=== PATIENT | female | born 1965 | race Caucasian/White ===

== ENCOUNTER 2018-10-30 07:31 | Outpatient (CLI) | payer OTHER, SELFPAY ==
[2018-10-30 08:33] LABS: Hemoglobin A1C 8.1 % (4.5-6.2)
[2018-10-30 08:34] LABS: ALT 28 U/L (12-78); AST 10 U/L (15-37); Alkaline Phosphatase 99 U/L (46-116); Anion Gap 11.3 mmol/L (3-11); BUN 14 mg/dL (7-18); Bilirubin, Total 0.4 mg/dL (0.2-1.0); CO2 25.7 mmol/L (21.0-32.0); CREATININE 0.85 mg/dL (0.55-1.02); Calcium 9.7 mg/dL (8.5-10.1); Chloride 99 mmol/L (98-107); Cholesterol 229 mg/dL (50-200); Glucose 199 mg/dL (70-100); HDL Cholesterol 60 mg/dL (40-60); LDL CHOLESTEROL 138 mg/dL (<100); Potassium 4.1 mmol/L (3.5-5.1); Sodium 136 mmol/L (136-145); Total Protein 7.2 g/dL (6.4-8.2); Triglyceride 255 mg/dL (30-150)
[2018-10-30 08:38] LABS: COMMENT (LAB VIEW ONLY) 10.01 mg/dL; Microalb ug/mg Crea 58.9 ug/mg Cr
== END 2018-10-30 07:51 ==
PROVIDERS: PCP Family Medicine; Visit Provider Family Medicine
DX: Z00.00 Encounter for general adult medical examination without abnormal findings (principal); E11.9 Type 2 diabetes mellitus without complications; F90.9 Attention-deficit hyperactivity disorder, unspecified type
CPT/HCPCS: 36415; 80053; 80061; 83721; 82043; 82570; 83036

== ENCOUNTER 2019-04-10 12:40 | Outpatient (CLI) | payer OTHER, SELFPAY ==
[2019-04-10 13:47] LABS: Hemoglobin A1C 9.2 % (4.5-6.2)
== END 2019-04-10 13:00 ==
PROVIDERS: PCP Family Medicine; Visit Provider Family Medicine
DX: E11.9 Type 2 diabetes mellitus without complications (principal); Z00.00 Encounter for general adult medical examination without abnormal findings
CPT/HCPCS: 36415; 83036

== ENCOUNTER 2019-04-12 23:44 | Emergency (ER) | payer OTHER, SELFPAY ==
[2019-04-12 23:47] VITALS: BP 148/83; PULSE 84; RESP 22; TEMP 36.1; O2SAT 98
--- NOTE | 2019-04-12 23:58 | W.ED.GENAD ---
Discharge Plan Disposition Patient Disposition: HOME Condition: Improving Discharge Details Chief Complaint: FlankPain Clinical Impression: Renal colic on left side Primary Care Provider: Keisha Magaña ED Provider: Richmond Trent Home Meds and New Rx's Prescriptions: Continued atorvastatin 10 mg tablet 10 mg PO QPM Qty: 90 RF: 5 methylphenidate HCl 10 mg tablet 10 mg PO TID MDD 3 Qty: 90 RF: 0 prochlorperazine maleate 10 mg tablet 10 mg PO TID PRN (Reason: nausea and vomiting) Qty: 50 RF: 0 fluoxetine [Prozac] 40 mg capsule 40 mg PO DAILY Qty: 90 RF: 11 estradiol 0.5 mg tablet 0.5 mg VG DAILY Qty: 90 RF: 12 glipizide 10 mg tablet extended release 24hr 10 mg PO BID Qty: 180 RF: 12 FreeStyle Test 1 EACH strip 1 strip Miscellaneous DAILY RF: 0 lancets [OneTouch Delica Lancets] 1 EACH misc 1 ea Sub-Q DAILY RF: 0 ibuprofen 800 MG tablet 800 mg PO PRN RF: 0 folic acid 0.4 MG tablet 1.2 mg PO DAILY RF: 0 Denavir 1 % cream 1 applic Topical QID PRN (Reason: herpes) Qty: 5 RF: 4 clonazepam 0.5 mg tablet 0.5 mg PO DIRECTED Qty: 200 RF: 1 diphenhydramine HCl 50 MG capsule 1 tab PO .PRN PRNRF: 0 acetaminophen [Mapap Extra Strength] 500 MG tablet 500 mg PO PRN PRNRF: 0 Discharge Instructions Instructions: Renal Colic (ED) Additional Instructions: Home to rest. Small, frequent sips of fluids to maintain hydration. Continue the previously prescribed ciprofloxacin. Use Tylenol and/or ibuprofen as needed for discomfort. Return if you develop a fever, worsening pain, or any other acute concerns Stand Alone Forms: Work Release Medical Decision Making 53-year-old female who is a history of kidney stones presents with hours of left-sided flank pain. She will note that she is been taking ciprofloxacin for a self diagnosed urinary tract infection. She has a temperature 36.1, pulse 84, blood pressure 148/83. She is in some distress and tender in the left abdomen and flank on exam. IV placed, patient given fluids, antiemetic, parenteral analgesia and referred for laboratory testing and CT images. Patient does have a right proximal ureteral stone measuring 4 mm. No significant hydronephrosis. No left-sided pathology. No other acute findings. Labs are reassuring without white blood cell count of 7, hematocrit 37, platelets 292. Chemistries notable for glucose of 218, otherwise reassuring. Urinalysis appears consistent with resolving urinary tract infection with trace leuk esterase, negative nitrates and mixed cells. Following fluids and analgesia, patient is improving. I feel she likely has passed a small left-sided kidney stone and has an asymptomatic right proximal ureteral stone. Improved with medications. Will offer small number of analgesic for home. She will continue to take the previously prescribed ciprofloxacin. Stable and improved Lab Data Lab results reviewed: Yes I reviewed the patient's lab results. Laboratory Results - last 24 hr 04/13/19 04/13/19 04/13/19 00:05 00:05 01:00 WBC 7.16 RBC 4.39 Hgb 12.6 Hct 37.7 MCV 85.9 MCH 28.7 MCHC 33.4 RDW 13.6 Plt Count 292 MPV 9.1 Immature Gran % 0.3 Neutrophils % 58.5 Lymphocytes % 30.6 Monocytes % 8.0 Eosinophils % 2.0 Basophils % 0.6 Absolute Neutrophils 4.20 Absolute Lymphocytes 2.19 Absolute Monocytes 0.57 Absolute Eosinophils 0.14 Absolute Basophils 0.04 Sodium 137 Potassium 3.8 Chloride 101 Carbon Dioxide 27.9 Anion Gap 8.1 BUN 9 Creatinine 0.87 Estimated GFR/1.73 m2 >= 60.00 Glucose 218 H Calcium 8.4 L Total Bilirubin 0.3 AST 31 ALT 56 Alkaline Phosphatase 116 Total Protein 6.5 Albumin 3.0 L Urine Color Yellow Urine Clarity Clear Urine pH 6.0 Ur Specific Madill 1.025 Urine Protein Negative Urine Ketones Negative Urine Blood Negative Urine Nitrite Negative Urine Bilirubin Negative Urine Urobilinogen 1.0 H Ur Leukocyte Esterase Trace H Urine RBC 0-2 Urine WBC 5-10 Ur Epithelial Cells Many Urine Crystals Negative Urine Bacteria Few Urine Casts Negative Urine Mucus Negative Ur Culture Indicated? No/sq. contamination Urine Glucose 250 H HPI General Mode of arrival: ambulatory. Date/Time Provider Initiated Documentation: 04/12/19 23:45. Limitations to Documentation: no limitations. Information obtained by: patient. History of Present Illness 53 year old F presents to the emergency department with the chief complaint of Left flank pain. Taking ciprofloxacin for urinary tract infection x3 days, described as moderate, Quality is described as constant, and is localized to the back, abdomen and left. Patient reports no radiation. Patient started experiencing this hour(s) and it has been constant. No relieving factors improve symptom(s), No exacerbating factors reported . Patient notes other (Nauseated but no emesis); denies fever/chills. Related Data Home Medications Medication Instructions Recorded Confirmed FreeStyle Test strip 03/18/13 03/03/19 lancets [OneTouch Delica Lancets] ea 03/18/13 03/03/19 ibuprofen 800 mg PO PRN 03/01/15 03/03/19 diphenhydramine HCl 1 tab PO .PRN PRN 04/07/15 03/03/19 acetaminophen [Mapap Extra 500 mg PO PRN PRN 04/11/15 03/03/19 Strength] folic acid 1.2 mg PO DAILY tab-cap 05/29/18 03/03/19 estradiol 0.5 mg tablet 0.5 mg VG DAILY #90 tab-cap 09/01/18 03/03/19 glipizide ER 10 mg tablet, 10 mg PO BID #180 tab-cap 09/01/18 03/03/19 extended release 24 hr atorvastatin 10 mg tablet 10 mg PO QPM #90 tab 10/30/18 03/03/19 penciclovir 1 % topical cream 1 applic TOPICAL QID PRN #5 gm 12/02/18 03/03/19 fluoxetine 40 mg capsule 40 mg PO DAILY #90 tab-cap 03/03/19 03/03/19 methylphenidate 10 mg tablet 10 mg PO TID #90 tab-cap MDD 3 03/03/19 03/03/19 prochlorperazine maleate 10 mg 10 mg PO TID PRN #50 tab-cap 03/03/19 03/03/19 tablet clonazepam 0.5 mg tablet 0.5 mg PO DIRECTED #200 tab 03/24/19 Previous Rx's Medication Instructions Recorded estradiol 0.5 mg tablet 0.5 mg VG DAILY #90 tab-cap 09/01/18 glipizide ER 10 mg tablet, 10 mg PO BID #180 tab-cap 09/01/18 extended release 24 hr atorvastatin 10 mg tablet 10 mg PO QPM #90 tab 10/30/18 penciclovir 1 % topical cream 1 applic TOPICAL QID PRN #5 gm 12/02/18 fluoxetine 40 mg capsule 40 mg PO DAILY #90 tab-cap 03/03/19 methylphenidate 10 mg tablet 10 mg PO TID #90 tab-cap MDD 3 03/03/19 prochlorperazine maleate 10 mg 10 mg PO TID PRN #50 tab-cap 03/03/19 tablet clonazepam 0.5 mg tablet 0.5 mg PO DIRECTED #200 tab 03/24/19 Allergies Allergy/AdvReac Type Severity Reaction Status Date / Time sulfamethoxazole Allergy Intermediate SKIN RASH, Unverified 03/03/19 09:24 ? airway swelling trimethoprim Allergy Intermediate SKIN RASH Unverified 03/03/19 09:24 doxycycline AdvReac Unknown Unverified 03/03/19 09:24 General Stated Complaint: FlankPain YOKASTA: 3 Review of Systems Review of Systems Patient works as a nurse. States that she dipped her urine at work and was started on ciprofloxacin based on the results of positive UTI. No vomiting. No fever or chills. 6 systems reviewed and otherwise [facility] Medical History Migraine (Chronic) Diabetes mellitus (Chronic 03/24/13) Depressive disorder (Chronic) Choroidal degeneration (Chronic) ADHD (attention deficit hyperactivity disorder) (Chronic 09/02/17) Anxiety (Chronic) Abnormal cervical Papanicolaou smear (Resolved) Annual physical exam (Resolved 10/21/17) Chronic pharyngitis (Resolved) Chronic tonsillitis (Resolved 03/07/15) DUB (dysfunctional uterine bleeding) (Resolved 11/01/15) Joint pain (Resolved) Left ureteral stone (Resolved) Low back pain (Resolved 06/14/14) Lymphadenopathy (Resolved) Nephrolithiasis (Resolved 10/10/16) Premature beats (Resolved) Shoulder pain (Resolved) Smoker (Resolved) Therapeutic procedure (Resolved) Disorder of parathyroid gland (Inactive) Surgical History H/O section (Resolved) H/O parathyroidectomy (Resolved) History of bilateral tubal ligation (Resolved) S/P appendectomy (Resolved) Appendectomy section Cystoscopy Ligation of fallopian tube Parathyroidectomy SHOCKWAVE THERAPY (04/10/12) Tonsillectomy Family History Mother Essential hypertension Depression Father Diabetes Essential hypertension Hyperlipidemia Brother No problems noted. Maternal Grandfather Heart disease Lung cancer Paternal Grandfather Prostate cancer Maternal Grandmother Diabetes Essential hypertension Bladder cancer Paternal Grandmother Essential hypertension FAMILY HISTORY Abdominal aortic aneurysm Son No problems noted. Son No problems noted. Daughter Depression Social History Smoking/Tobacco Use Status: Former Tobacco Use Quit Date: 11/25/09 Second Hand Exposure: Yes Alcohol Intake: current Alcohol Intake frequency: holidays/special occasions only Drug use: Never Substance use type: does not use current occupation: RN Pets and animals: Yes Pets and animals: cat(s) and dog(s) What type of physical activity do you participate in: none Frequency: does not exercise Hannah/Confucianism: Episcopalian Special hannah needs: No Do you feel safe at home: Yes Do you feel safe in your relationship?: Yes Exam Narrative Exam Narrative: GEN: awake, alert, oriented 3. Pleasant, well groomed, interactive. HEAD: Normocephalic, atraumatic ENT: Mucous membranes moist, External ear exam unremarkable EYES: PERRL, EOMI NECK: Full ROM, no RONEY, no menigismus CHEST/RESP: Nontender, clear to auscultation bilateral, no wheeze/rhonchi/rales CARDIOVASCULAR: RRR, no murmur, rub rosanna. 2+ Rad pulse bilateral ABDOMEN: Soft, tender left side of abdomen and flank, no mass. +Bowel sounds EXT: Full ROM, no edema, no rash Neuro: Grossly normal neurologic exam, conversant, interactive. Psych: Speech fluent, thoughts congruent, affect normal Course Vital Signs Temperature 36.1 C L 04/12/19 23:47 Pulse 84 04/12/19 23:47 Respiratory Rate 22 04/12/19 23:47 Blood Pressure 148/83 H 04/12/19 23:47 Pulse Oximetry 98 04/12/19 23:47 Temperature 36.1 C L 04/12/19 23:47 Temperature Source Tympanic 04/12/19 23:47 Pulse 84 04/12/19 23:47 Respiratory Rate 22 04/12/19 23:47 Respiratory Effort 04/12/19 23:47 Blood Pressure 148/83 H 04/12/19 23:47 Blood Pressure Position Supine 04/12/19 23:47 Pulse Oximetry 98 04/12/19 23:47 Oxygen Delivery Method Room Air 04/12/19 23:47 Oxygen Flow Rate 0 04/12/19 23:47 Pain Level 6 04/12/19 23:47
[2019-04-13] MEDS: Normal Saline 1,000 ML 150 ML IV (00:04)
[2019-04-13] MEDS: Ketorolac 30 MG/ML VIAL IVP (00:05)
[2019-04-13] MEDS: Ondansetron 4 MG/2 ML VIAL IVP (00:05)
[2019-04-13 00:18] LABS: Abs Immature Grans 0.02 k/cumm (0.0-0.09); Absolute Basophil Count 0.04 k/cumm (0.0-0.2); Absolute Eosinophil Count 0.14 k/cumm (0.0-0.7); Absolute Lymphocyte Count 2.19 k/cumm (1.2-3.4); Absolute Monocyte Count 0.57 k/cumm (0.11-0.7); Basophils % 0.6; HCT 37.7 % (36.0-46.0); HGB 12.6 g/dL (12.0-15.5); Immature Grans % 0.3; Lymphocytes % 30.6; Mean Corp. HGB Concentration 33.4 g/dL (32.0-36.0); Mean Corpuscular Hemoglobin 28.7 pg (27.0-33.0); Mean Corpuscular Volume 85.9 fL (80-95); Mean Platelet Volume 9.1 fL (8.0-11.0); Neutrophils % 58.5; Platelet Count 292 x1000/uL (130-400); RBC 4.39 m/cumm (4.00-5.20); RBC Distribution Width 13.6 % (11.7-14.6); White Blood Cell Count 7.16 k/cumm (4.4-10.8)
--- NOTE | 2019-04-13 00:25 | DI.CT_ITS ---
SYMPTOMS/DIAGNOSIS: LEFT FLANK PAIN, H/O KIDNEY STONES CT OF THE ABDOMEN AND PELVIS: Comparison is made with September, noncontrast exam. Images were performed from the lung bases through the ischial tuberosities without oral or IV contrast. There is a stone measuring 4 mm in the right renal pelvis causing mild dilatation. There is no dilatation of the intrarenal collecting system. The stone was previously located at the lower pole of the right kidney on the previous exam. No left renal calculi are seen. The bladder is unremarkable. The uterus is enlarged with multiple fibroids. The ovaries are unremarkable. The liver shows fatty infiltration. The lung bases are clear. The spleen, adrenals and pancreas are unremarkable. No bowel dilatation or inflammatory changes are seen. The aorta is normal in diameter. A fluid density area is seen in the fat of the left lower pelvis adjacent to the pubic bone. This appears stable from the previous exam. IMPRESSION: A 4 mm calculus in the right renal pelvis.
[2019-04-13 00:33] LABS: ALT 56 U/L (12-78); AST 31 U/L (15-37); Alkaline Phosphatase 116 U/L (46-116); Anion Gap 8.1 mmol/L (3-11); BUN 9 mg/dL (7-18); Bilirubin, Total 0.3 mg/dL (0.2-1.0); CO2 27.9 mmol/L (21.0-32.0); CREATININE 0.87 mg/dL (0.55-1.02); Calcium 8.4 mg/dL (8.5-10.1); Chloride 101 mmol/L (98-107); Glucose 218 mg/dL (70-100); Potassium 3.8 mmol/L (3.5-5.1); Sodium 137 mmol/L (136-145); Total Protein 6.5 g/dL (6.4-8.2)
--- NOTE | 2019-04-13 00:52 | DI.VRAD_ITS ---
EXAM: CT Abdomen and Pelvis Without Contrast EXAM DATE/TIME: 04/13/2019 12:05 AM CLINICAL HISTORY: 53 years old, female; Prior surgery; Surgery date: 6+ months; Surgery type: Appendectomy and c section; Patient HX: L flank pain, HX of kidney stones TECHNIQUE: Imaging protocol: Axial computed tomography images of the abdomen and pelvis without contrast. Coronal and sagittal reformatted images were created and reviewed. Radiation optimization: All CT scans at this facility use at least one of these dose optimization techniques: automated exposure control; mA and/or kV adjustment per patient size (includes targeted exams where dose is matched to clinical indication); or iterative reconstruction. COMPARISON: CT ABD PELVIS WO CONTRAST 10/08/2016 9:11 AM FINDINGS: Lungs: Mild scattered atelectasis. ABDOMEN: Liver: No mass. Gallbladder and bile ducts: No calcified stones. No ductal dilation. Pancreas: No ductal dilation. Spleen: No splenomegaly. Adrenals: No mass. Kidneys and ureters: Right proximal ureteral stone measuring 4 mm. Associated prominent right renal pelvis, without significant hydronephrosis. Stomach and bowel: No obstruction. No mucosal thickening. Appendix: No evidence of appendicitis. PELVIS: Bladder: Unremarkable as visualized. Reproductive: Lobulated uterus likely containing fibroids. ABDOMEN and PELVIS: Intraperitoneal space: No free air. No significant fluid collection. Bones/joints: Bony structures show scattered degenerative disease of the visualized spine. Soft tissues: Area of fluid density in the left perianal gluteal region, stable in appearance. Vasculature: Atherosclerotic disease. Lymph nodes: No enlarged lymph nodes. IMPRESSION: 1. Right proximal ureteral stone measuring 4 mm. Associated prominent right renal pelvis, without significant hydronephrosis. 2. Lobulated uterus likely containing fibroids. 3. Atherosclerotic disease. 4. Area of fluid density in the left perianal gluteal region, stable in appearance. Dictated and Authenticated by: Jamar Echeverria MD. Ordering:RACHELLE Fragoso MD
[2019-04-13] MEDS: HYDROmorphone 2 MG/ML VIAL 0.5 MG IVP (01:06)
[2019-04-13] MEDS: Normal Saline 1,000 ML 1000 ML IV (01:06)
[2019-04-13 01:15] LABS: Bilirubin Negative (Negative); Blood Negative (Negative); Clarity Clear; Glucose 250 mg/dL (Negative); Ketones Negative (Negative); Leukocyte Esterase Trace (Negative); Nitrite Negative (Negative); Specific Gravity 1.025 (1.005-1.025)
[2019-04-13 01:23] LABS: Bacteria Few HPF (Negative); C & S Indicated? No/Sq. Contamination; Casts Negative LPF (Negative); Crystals Negative HPF (Negative); Epithelial Cells Many HPF (Negative); Mucus Negative (Negative); RBC 0-2 (0-2)
[2019-04-13 01:44] VITALS: BP 121/90; PULSE 72; RESP 16; O2SAT 98
[2019-04-13 02:35] VITALS: BP 113/63; PULSE 70; RESP 16; O2SAT 95
[2019-04-13] MEDS: HYDROcodone 5/Acetaminophen 325 TAB PO (04:42)
== END 2019-04-13 04:45 | disposition home or self-care (01) ==
PROVIDERS: Emergency Provider Emergency Medicine; PCP Family Medicine
DX: N23 Unspecified renal colic (principal); E11.9 Type 2 diabetes mellitus without complications; Z87.442 Personal history of urinary calculi
CPT/HCPCS: 36415; 80053; 96361; 96374; 96375; 99284; 74176; 81003; 81015; 85025; J1885; J2405

== ENCOUNTER 2019-07-07 16:49 | Outpatient (REF) | payer OTHER, SELFPAY | END 2019-07-07 17:09 | LOC: LBN 16:49 | PROVIDERS: PCP Family Medicine; Visit Provider Family Medicine | DX: N76.0 Acute vaginitis (principal) | CPT/HCPCS: 87480; 87510; 87660 ==

== ENCOUNTER 2019-08-27 07:10 | Outpatient (CLI) | payer OTHER, SELFPAY ==
[2019-08-27 07:52] LABS: Hemoglobin A1C 8.2 % (4.5-6.2)
[2019-08-27 10:04] LABS: ALT 22 U/L (14-59); AST 11 U/L (15-37); Alkaline Phosphatase 100 U/L (46-116); Anion Gap 12.9 mmol/L (3-11); BUN 19 mg/dL (7-18); CO2 23.1 mmol/L (21.0-32.0); CREATININE 0.83 mg/dL (0.55-1.02); Calcium 8.9 mg/dL (8.5-10.1); Calculated LDL 83 mg/dL; Chloride 101 mmol/L (98-107); Cholesterol 161 mg/dL (50-200); Glucose 161 mg/dL (70-100); HDL Cholesterol 54 mg/dL (40-60); Potassium 4.2 mmol/L (3.5-5.1); Sodium 137 mmol/L (136-145); TSH (W/Ref FT4) 1.83 uIU/mL (0.36-3.74); Total Protein 7.1 g/dL (6.4-8.2); Triglyceride 121 mg/dL (30-150)
== END 2019-08-27 07:30 ==
PROVIDERS: PCP Family Medicine; Visit Provider Family Medicine
DX: E11.9 Type 2 diabetes mellitus without complications (principal); F41.9 Anxiety disorder, unspecified
CPT/HCPCS: 36415; 80053; 80061; 81003; 83036; 84443

== ENCOUNTER 2020-02-01 07:49 | Outpatient (CLI) | payer OTHER, SELFPAY ==
[2020-02-01 08:31] LABS: Hemoglobin A1C 9.4 % (3.8-5.6)
[2020-02-01 08:39] LABS: COMMENT (LAB VIEW ONLY) 32.13 mg/dL; Microalb ug/mg Crea 28.3 ug/mg Cr
== END 2020-02-01 08:09 ==
PROVIDERS: PCP Family Medicine; Visit Provider Family Medicine
DX: Z00.00 Encounter for general adult medical examination without abnormal findings (principal); E11.9 Type 2 diabetes mellitus without complications
CPT/HCPCS: 36415; 82043; 82570; 83036

== ENCOUNTER 2020-04-17 11:14 | Emergency (ER) | payer OTHER, SELFPAY ==
--- NOTE | 2020-04-17 11:18 | ED.GENADUL_ITS ---
Discharge Plan Disposition Patient Disposition: HOME Condition: Improving Discharge Details Chief Complaint: GenMedical Clinical Impression: UTI (urinary tract infection) Primary Care Provider: Keisha Magaña ED Provider: Richmond Trent Home Meds and New Rx's Prescriptions: New cephalexin 500 mg capsule 500 mg PO TID 7 Days Qty: 21 RF: 0 Continued Estring 2 mg (7.5 mcg /24 hour) ring 1 vag ring VG [id number] Qty: 1 RF: 4 Jardiance 25 mg tablet 25 mg PO DAILY Qty: 90 RF: 5 atorvastatin 10 mg tablet 10 mg PO QPM Qty: 90 RF: 5 estradiol 0.01 % (0.1 mg/gram) cream 2 gm VG DAILY Qty: 42.5 RF: 5 fluoxetine [Prozac] 40 mg capsule 40 mg PO DAILY Qty: 90 RF: 11 methylphenidate HCl 10 mg tablet 10 mg PO TID MDD 3 Qty: 90 RF: 0 Januvia 100 mg tablet 100 mg PO DAILY Qty: 90 RF: 4 (DME) blood sugar diagnostic [FreeStyle Test] 1 EACH strip 1 strip Miscellaneous DAILY RF: 0 (DME) lancets [OneTouch Delica Lancets] 1 EACH misc 1 ea Sub-Q DAILY RF: 0 ibuprofen 800 MG tablet 800 mg PO PRN RF: 0 folic acid 0.4 MG tablet 1.2 mg PO DAILY RF: 0 Denavir 1 % cream 1 applic Topical QID PRN (Reason: herpes) Qty: 5 RF: 4 fluconazole [Diflucan] 150 mg tablet 150 mg PO Q72H Qty: 30 RF: 4 prochlorperazine maleate 10 mg tablet 10 mg PO TID PRN (Reason: nausea and vomiting) Qty: 50 RF: 0 clonazepam 0.5 mg tablet 0.5 mg PO DIRECTED Qty: 90 RF: 1 acetaminophen [Mapap Extra Strength] 500 MG tablet 500 mg PO PRN PRNRF: 0 Discharge Instructions Instructions: Urinary Tract Infection in Women (ED), Fever in Adults (ED) Additional Instructions: Home to rest today. You have a urine infection. Take Keflex every 6 hours for 24 hours and then may switch to every 8 hours as prescribed. I have ordered a urine culture which will be pending as will your COVID-19 testing. May continue Tylenol and/or ibuprofen as needed for fever. Please continue to push fluids today with small, frequent sips to maintain good hydration. Return if you develop difficulty breathing, persistent vomiting, or any other acute concerns. 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 She has a history of urinary tract infections in the past, she also has cared for some patients who were patients under investigation for COVID-19 infection. She wishes to defer most of the physical exam at this time. We will obtain urinalysis, COVID-19 testing, patient was given antiemetic and she took her own Tylenol, Compazine and ibuprofen. Urinalysis does show mild dehydration and ketones present, but also pyuria and is consistent with acute UTI. COVID-19 testing pending. Patient's fever defervesced. She requested discharge to home. She will be placed on Keflex with urine culture pending. She understands homecare. HPI General Mode of arrival: ambulatory . Date/Time Provider Initiated Documentation: 04/17/20 11:16 . Limitations to Documentation: no limitations . Information obtained by: patient . 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 No relieving factors improve symptom(s), No exacerbating factors reported . Patient notes fever/chills and nausea/vomiting. Patient did receive the following t reatments prior to arrival, other (Compazine and acetaminophen) Related Data Home Medications Medication Instructions Recorded Confirmed blood sugar diagnostic [FreeStyle strip 03/18/13 02/01/20 Test] lancets [OneTouch Delica Lancets] ea 03/18/13 02/01/20 ibuprofen 800 mg PO PRN 03/01/15 02/01/20 acetaminophen [Mapap Extra 500 mg PO PRN PRN 04/11/15 02/01/20 Strength] folic acid 1.2 mg PO DAILY tab-cap 05/29/18 02/01/20 penciclovir 1 % topical cream 1 applic TOPICAL QID PRN #5 gm 12/02/18 02/01/20 empagliflozin 25 mg tablet 25 mg PO DAILY #90 tab 06/08/19 02/01/20 estradiol 2 gm VG DAILY #42.5 gm 07/07/19 02/01/20 atorvastatin 10 mg tablet 10 mg PO QPM #90 tab 08/27/19 02/01/20 fluconazole 150 mg tablet 150 mg PO Q72H #30 tab 09/27/19 02/01/20 estradiol 1 vag ring VG [id number] #1 each 11/02/19 02/01/20 fluoxetine 40 mg capsule 40 mg PO DAILY #90 tab-cap 02/01/20 02/01/20 methylphenidate HCl 10 mg tablet 10 mg PO TID #90 tab-cap MDD 3 02/01/20 02/01/20 sitagliptin 100 mg tablet 100 mg PO DAILY #90 tab 02/01/20 02/01/20 prochlorperazine maleate 10 mg 10 mg PO TID PRN #50 tab-cap 02/23/20 tablet clonazepam 0.5 mg tablet 0.5 mg PO DIRECTED #90 tab 04/05/20 cephalexin 500 mg PO TID 7 Days #21 cap 04/17/20 Previous Rx's Medication Instructions Recorded penciclovir 1 % topical cream 1 applic TOPICAL QID PRN #5 gm 12/02/18 empagliflozin 25 mg tablet 25 mg PO DAILY #90 tab 06/08/19 estradiol 2 gm VG DAILY #42.5 gm 07/07/19 atorvastatin 10 mg tablet 10 mg PO QPM #90 tab 08/27/19 fluconazole 150 mg tablet 150 mg PO Q72H #30 tab 09/27/19 estradiol 1 vag ring VG [id number] #1 each 11/02/19 fluoxetine 40 mg capsule 40 mg PO DAILY #90 tab-cap 02/01/20 methylphenidate HCl 10 mg tablet 10 mg PO TID #90 tab-cap MDD 3 02/01/20 sitagliptin 100 mg tablet 100 mg PO DAILY #90 tab 02/01/20 prochlorperazine maleate 10 mg 10 mg PO TID PRN #50 tab-cap 02/23/20 tablet clonazepam 0.5 mg tablet 0.5 mg PO DIRECTED #90 tab 04/05/20 cephalexin 500 mg PO TID 7 Days #21 cap 04/17/20 Allergies Allergy/AdvReac Type Severity Reaction Status Date / Time sulfamethoxazole Allergy Intermediate SKIN RASH, Unverified 02/01/20 08:51 ? 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 She has cared for patients under investigation for COVID-19. [facility] Medical History Abnormal cervical Papanicolaou smear (Resolved) CRYO ADHD (attention deficit hyperactivity disorder) (Chronic 09/02/17) Annual physical exam (Resolved 10/21/17) Anxiety (Chronic) Choroidal degeneration (Chronic) [facility] CHOROIDAL NEOVASCULAR MEMBRANE Chronic pharyngitis (Resolved) 03/07/15 Chronic pharyngitis (Inactive 03/07/15) Chronic tonsillitis (Resolved 03/07/15) Chronic tonsillitis (Inactive 03/07/15) Depressive disorder (Chronic) Diabetes mellitus (Chronic 03/24/13) Disorder of parathyroid gland (Inactive) S/P removal DUB (dysfunctional uterine bleeding) (Resolved 11/01/15) fibroids on US Joint pain (Resolved) ribs Left ureteral stone (Resolved) Low back pain (Resolved 06/14/14) Lymphadenopathy (Resolved) right lymph node> left Lymphadenopathy (Inactive) Migraine (Chronic) Nephrolithiasis (Resolved 10/10/16) ACUTE WITH PYELONEPHRITIS; DR. ALICEA Premature beats (Resolved) premature beats PVC's Shoulder pain (Resolved) Smoker (Resolved) Therapeutic procedure (Resolved) shockwave therapy; left extracorporeal shockwave therapy Dr. Santiago Vaginitis (Inactive) Surgical History (Updated 02/01/20 @ 08:52 by Keisha Magaña MD, [place]) Appendectomy section Cystoscopy 10/08/16 DR. GIL; LEFT URETERAL STONE EXTRACTION H/O section (Resolved) H/O parathyroidectomy (Resolved) History of bilateral ligation of fallopian tubes (Inactive) History of bilateral tubal ligation (Resolved) History of section (Inactive) History of parathyroidectomy (Inactive) Ligation of fallopian tube Parathyroidectomy S/P appendectomy (Resolved) SHOCKWAVE THERAPY (04/10/12) LEFT EXTRACORPOREAL SHOCK WAVE THERAPY (DR. SANTIAGO) Status post appendectomy (Inactive) Tonsillectomy 04/11/15 Family History (Updated 11/03/19 @ 11:25 by Kevin Billingsley) Mother Essential hypertension Depression Father , age 64 Diabetes Essential hypertension Hyperlipidemia Alcohol abuse Brother No problems noted. Maternal Grandfather Heart disease Lung cancer Paternal Grandfather Prostate cancer Maternal Grandmother Diabetes Essential hypertension Bladder cancer Paternal Grandmother Essential hypertension FAMILY HISTORY Abdominal aortic aneurysm RUPTURED Son Depression Son No problems noted. Daughter Depression Social History (Updated 11/03/19 @ 11:23 by Kevin Billingsley) Smoking/Tobacco Use Status: Former Tobacco Use Quit Date: 11/25/09 Tobacco: How many years used: 25 Second Hand Exposure: Yes Alcohol Intake: current Alcohol Intake frequency: holidays/special occasions only Alcohol type: wine Drug use: Never Substance use type: does not use Caregiver/Support person: No Household members: significant other and family Housing: house Communication Needs: None Do you need help understanding health information?: Never current occupation: RN Pets and animals: Yes Pets and animals: cat(s) and dog(s) Sexually active: Yes Do you think of yourself as: straight/heterosexual Current gender identity: female What is your relationship status?: living with partner How often do you talk on the phone with friends or family?: once per week How often do you get together with friends or relatives?: decline to answer How often do you attend uatsdin or temple services?: decline to answer Do you belong to any clubs or organized social groups?: no Panel score (0-1 are the most socially isolated patients): 1 What type of physical activity do you participate in: none Frequency: does not exercise Hannah/Scientology: Pentecostal Special hannah needs: No Seatbelt use: always Helmet use: Yes Helmet use: always Drive intox or ride w/intox city route driver: No Do you feel safe at home: Yes Do you feel safe in your relationship?: Yes Exam Narrative Exam Narrative: GEN: awake, alert, oriented 3. Pleasant, well groomed, interactive. HEAD: Normocephalic, atraumatic EYES: PERRL, EOMI NECK: Full ROM, no RONEY, no menigismus CHEST/RESP: No respiratory distress EXT: Full ROM Neuro: Grossly normal neurologic exam, conversant, interactive. Psych: Speech fluent, thoughts congruent, affect normal
[2020-04-17 11:38] VITALS: BP 140/87; PULSE 98; RESP 18; TEMP 38.7; O2SAT 96
[2020-04-17 11:41] LABS: Bilirubin Negative (Negative); Blood Small (Negative); Clarity Clear (Clear); Glucose >=1000 mg/dL (Negative); Ketones Trace mg/dL (Negative); Leukocyte Esterase Negative (Negative); Nitrite Negative (Negative); Specific Gravity 1.015 (1.005-1.025); Urobilinogen 0.2 EU/dL (Up TO 0.2)
[2020-04-17 11:42] VITALS: RESP 18
[2020-04-17] MEDS: Ondansetron O.D.T. 4 MG TABEF PO (11:42)
[2020-04-17 11:52] LABS: Bacteria Moderate HPF (Negative); Crystals Negative HPF (Negative); Epithelial Cells Rare HPF (Negative); Mucus Negative (Negative); Other Cells Few Transitional (Negative); WBC >50 HPF (0-5)
[2020-04-17 11:53] LABS: C & S Indicated? Yes; Casts Negative LPF (Negative)
[2020-04-17] MEDS: Cephalexin 500 MG CAP, 4 CAPS/BTL PO (12:09)
[2020-04-19 02:07] LABS: COVID-19 RT-PCR UVMMC Result Negative (Negative)
== END 2020-04-17 12:15 | disposition home or self-care (01) ==
LOC: ER 11:55
PROVIDERS: Emergency Provider Emergency Medicine; PCP Family Medicine
DX: N39.0 Urinary tract infection, site not specified (principal); B96.20 Unspecified Escherichia coli [E. coli] as the cause of diseases classified elsewhere; E86.0 Dehydration; Z87.440 Personal history of urinary (tract) infections; E11.9 Type 2 diabetes mellitus without complications; Z79.84 Long term (current) use of oral hypoglycemic drugs
CPT/HCPCS: 87077; 99283; U0003; 81003; 81015; 87086; 87186

== ENCOUNTER 2020-05-11 02:35 | Outpatient (CLI) | payer OTHER, SELFPAY ==
--- NOTE | 2020-05-11 15:45 | DI.MAMMO_ITS ---
EXAM: MAMMO SCREENING CLINICAL HISTORY: Screening Z12.39 TECHNIQUE: Mammograms were interpreted according to the usual protocol including computer analysis w [facility] CAD system, tomosynthesis and C-view imaging. COMPARISON: FINDINGS: The breasts are of moderate density with fairly symmetrical distribution of fibroglandular tissue. C urrent examination is compared with prior study of June 13. There is a new 9 millimeter mildly l obulated well-circumscribed mass of the central portion of the left breast. Additional evaluation wi spot compression views and breast ultrasound suggested. Additionally there is a 20 millimeter in diameter lobulated fairly well-circumscribed mass of the upp er outer quadrant of the right breast. This may have some some questionable associated architectural distortion, additional evaluation with spot compression views and breast ultrasound of this lesion i s recommended as well. No additional new masses or clumped microcalcification of either breast. IMPRESSION: New bilateral breast masses, additional evaluation with spot compression views of both breasts and bi lateral breast ultrasound recommended. Category: BI-RADS Cat 0 - Assessment Incomplete: Need additional imaging evaluationBreast Density - Category B - Scattered areas of fibroglandular density:
== END 2020-05-11 02:55 ==
PROVIDERS: PCP Family Medicine; Visit Provider Family Medicine
DX: Z12.31 Encounter for screening mammogram for malignant neoplasm of breast (principal); R92.8 Other abnormal and inconclusive findings on diagnostic imaging of breast
CPT/HCPCS: 77063; 77067

== ENCOUNTER 2020-05-20 03:42 | Outpatient (CLI) | payer OTHER, SELFPAY ==
--- NOTE | 2020-05-20 | DI.MAMMO_ITS ---
EXAM: MG MAMMO DIAGNOSTIC BI CLINICAL HISTORY: F/U ABNL MAMMO, NEW BILATERAL BREAST MASSES TECHNIQUE: Mammograms were interpreted according to the usual protocol including computer analysis w [employer] CAD system, tomosynthesis and C-view imaging. COMPARISON: FINDINGS: Additional mammographic views of both breasts are interpreted in conjunction with bilateral breast ul trasound. In the left breast, the small nodule identified centrally in the breast on recent mammogram is confir med additional spot compression view, there is a question of micro lobulation of the border of this m ass which measures up to about 9 millimeters in diameter. On ultrasound, this is not identified. Ac cordingly I would recommend that a stereotactic biopsy be obtained of this solid mass. In the right breast a 2 cm in diameter rounded well-circumscribed mass is confirmed in the 12 o'clock position on spot compression views. Ultrasound shows an approximately 1 cm in diameter mass. There is increased external vascularity at this site, no definite solid component identified but the misma tch between mammographically apparent size and ultrasound a graphically apparent size would raise the possibility of a solid component. Biopsy of this area are recommended as well. IMPRESSION: Biopsy of lesions of both right and left breast recommended as described above. BI-RADS Category 4 - Suspicious Abnormality: Biopsy should be considered Breast Density - Category B - Scattered areas of fibroglandular density
== END 2020-05-20 04:02 ==
PROVIDERS: PCP Family Medicine; Visit Provider Family Medicine
DX: Z12.31 Encounter for screening mammogram for malignant neoplasm of breast (principal); R92.8 Other abnormal and inconclusive findings on diagnostic imaging of breast; N63.25 Unspecified lump in the left breast, overlapping quadrants; N63.11 Unspecified lump in the right breast, upper outer quadrant
CPT/HCPCS: 76642; 77062; 77066; G0279

== ENCOUNTER 2020-06-11 11:14 | Outpatient (REF) | payer OTHER, SELFPAY ==
[2020-06-11 12:07] LABS: Hemoglobin A1C 10.5 % (3.8-5.6)
== END 2020-06-11 11:34 ==
LOC: LBN 11:14
PROVIDERS: PCP Family Medicine; Visit Provider Family Medicine
DX: E11.9 Type 2 diabetes mellitus without complications (principal)
CPT/HCPCS: 83036

== ENCOUNTER 2020-09-12 10:05 | Outpatient (CLI) | payer OTHER, SELFPAY ==
[2020-09-12 07:47] LABS: Hemoglobin A1C 9.5 % (<5.7)
== END 2020-09-12 10:25 ==
PROVIDERS: PCP Family Medicine; Visit Provider Family Medicine
DX: E11.9 Type 2 diabetes mellitus without complications (principal)
CPT/HCPCS: 83036

== ENCOUNTER 2020-11-07 07:01 | Outpatient (CLI) | payer OTHER, SELFPAY ==
[2020-11-07 10:17] LABS: Hemoglobin A1C 9.3 % (<5.7)
[2020-11-07 10:51] LABS: COMMENT (LAB VIEW ONLY) 4.15 mg/dL
== END 2020-11-07 07:21 ==
LOC: LBO 07:06 → LBN 09:50
PROVIDERS: PCP Family Medicine; Visit Provider Family Medicine
DX: E11.9 Type 2 diabetes mellitus without complications (principal)
CPT/HCPCS: 82043; 82570; 83036

== ENCOUNTER 2020-11-08 10:34 | Outpatient (REF) | payer OTHER, SELFPAY ==
--- NOTE | 2020-11-08 09:45 | PAPFT_PTH ---
PATIENT: Juani Islas LOC: [facility] U#:[id number] AGE/SX: 55/F ROOM: RE11/08/[address]: Keisha Magaña MD, DC : 1965 BED: DIS: 11/08/2020 SPEC #: [id number] RECD: 11/08/20 13:00 STATUS: AMOL REAntonino #: [id number] DESI: 11/08/20 09:[address]: Keisha Magaña DEPT: [facility] Cytology RECD BY: Debra Kwan Tissues: 1 - CX/ENDOCX FOR PAP SMEARS Procedures: PAP THIN PREP/UVM Screening HPV DNA PROBE Comments: [id number]
== END 2020-11-08 10:54 ==
LOC: LBN 10:34
PROVIDERS: PCP Family Medicine; Visit Provider Family Medicine
DX: Z12.4 Encounter for screening for malignant neoplasm of cervix (principal); Z11.51 Encounter for screening for human papillomavirus (HPV)
CPT/HCPCS: 88142; 87624

== ENCOUNTER 2021-01-16 19:25 | Outpatient (CLI) | payer OTHER, SELFPAY ==
--- NOTE | 2021-01-16 12:45 | DI.RAD_ITS ---
EXAM: XR WRIST RT COMPLETE CLINICAL HISTORY: r wrist pain,m25.531. TECHNIQUE: 2D digital imaging was performed. COMPARISON: There is a small 1-2 millimeter ossified density adjacent to the cortex of the distal do rsal radius, possibly avulsion injury. There are no distinct fracture lines. Ulnar styloid appears unremarkable. There is an element of negative ulnar variance here. There are mild degenerative almeida ges at the articulation between the thumb metacarpal and trapezium. Also some degenerative change at the articulation between the distal scaphoid and trapezoid bone. No ominous osseous lesions. FINDINGS: There is a 2 millimeter calcific density adjacent to the cortex of the distal radius. This appears t o be located dorso laterally. Possibility of an avulsion injury at this level. Correlation with sit e of tenderness recommended. Negative ulnar variance noted. IMPRESSION: DATA REPOSITORY: RADIATION DOSE DELIVERED:
== END 2021-01-16 19:26 ==
LOC: DI 01-19 19:25
PROVIDERS: PCP Family Medicine; Visit Provider Family Medicine
DX: M25.531 Pain in right wrist (principal)
CPT/HCPCS: 73110

== ENCOUNTER 2021-02-03 03:36 | Outpatient (CLI) | payer OTHER, SELFPAY ==
[2021-02-03 11:52] LABS: Hemoglobin A1C 7.7 % (<5.7)
== END 2021-02-03 03:37 | disposition home or self-care (01) ==
LOC: LBO 03:36
PROVIDERS: PCP Family Medicine; Visit Provider Family Medicine
DX: E11.9 Type 2 diabetes mellitus without complications (principal)
CPT/HCPCS: 36415; 83036

== ENCOUNTER 2021-05-11 08:07 | Outpatient (REF) | payer OTHER, SELFPAY ==
[2021-05-11 09:11] LABS: Hemoglobin A1C 7.4 % (<5.7)
== END 2021-05-11 08:08 | disposition home or self-care (01) ==
LOC: LBN 08:07
PROVIDERS: PCP Family Medicine; Visit Provider Family Medicine
DX: E11.9 Type 2 diabetes mellitus without complications (principal)
CPT/HCPCS: 36415; 83036

== ENCOUNTER 2021-06-19 11:53 | Outpatient (CLI) | payer OTHER, SELFPAY ==
--- NOTE | 2021-06-19 10:15 | DI.RAD_ITS ---
Exam(s) XR HIP RT AP LAT ONLY EXAM: XR HIP RT AP LAT ONLY CLINICAL HISTORY: rt hip pain. TECHNIQUE: 2D digital imaging was performed. COMPARISON: No exams were available for comparison FINDINGS: No evidence of fracture. However, there are significant osteoarthritic degenerative changes in the r ight hip including joint space narrowing and degenerative subarticular cysts in femoral head. Also m arginal osteophytes. No osseous lesions. IMPRESSION: Significant osteoarthritic degenerative changes in right hip. DATA REPOSITORY: RADIATION DOSE DELIVERED:
--- NOTE | 2021-06-19 10:15 | DI.RAD_ITS ---
Exam(s) XR LUMBAR SPINE AP, LAT EXAM: XR LUMBAR SPINE AP, LAT CLINICAL HISTORY: low back pain. TECHNIQUE: 2D digital imaging was performed. COMPARISON: No exams were available for comparison FINDINGS: Slight flattening of superior endplate of L1 noted multilevel degenerative disc disease in the lower thoracic spine as well as disc space narrowing at L1-2. The disc spaces in the lumbar spine below th is level exhibit normal height. No ceases. No pars defects. Sacroiliac joints unremarkable. No sc oliosis. IMPRESSION: Multilevel degenerative disc disease in the upper lumbar spine lower thoracic spine. Lower lumbar sp ine exhibits normal disc height although there is some facet arthropathy. Also noted are significant degenerative changes in the right hip. DATA REPOSITORY: RADIATION DOSE DELIVERED:
== END 2021-06-19 11:54 | disposition home or self-care (01) ==
LOC: DIORS 11:54
PROVIDERS: PCP Family Medicine; Visit Provider Physician Assistant Surgical
DX: M16.11 Unilateral primary osteoarthritis, right hip (principal); M51.36 Other intervertebral disc degeneration, lumbar region; M51.34 Other intervertebral disc degeneration, thoracic region; M47.816 Spondylosis without myelopathy or radiculopathy, lumbar region
CPT/HCPCS: 72100; 73502

== ENCOUNTER 2021-08-14 08:41 | Outpatient (CLI) | payer OTHER, SELFPAY ==
[2021-08-14 16:27] LABS: Hemoglobin A1C 7.8 % (<5.7)
== END 2021-08-14 08:42 | disposition home or self-care (01) ==
PROVIDERS: PCP Family Medicine; Visit Provider Family Medicine
DX: E11.9 Type 2 diabetes mellitus without complications (principal)
CPT/HCPCS: 83036

== ENCOUNTER 2021-12-19 07:29 | Outpatient (REF) | payer OTHER, SELFPAY ==
[2021-12-19 08:40] LABS: Hemoglobin A1C 8.3 % (<5.7)
[2021-12-19 22:40] LABS: COMMENT (LAB VIEW ONLY) 12.46 mg/dL; Microalb ug/mg Crea 24.1 ug/mg Cr
== END 2021-12-19 07:30 | disposition home or self-care (01) ==
LOC: LBN 07:29
PROVIDERS: PCP Family Medicine; Visit Provider Family Medicine
DX: E11.9 Type 2 diabetes mellitus without complications (principal)
CPT/HCPCS: 82043; 82570; 83036

== ENCOUNTER 2022-01-02 00:48 | Outpatient (CLI) | payer OTHER, SELFPAY ==
--- NOTE | 2022-01-02 07:15 | DI.NM_ITS ---
APPROVED REPORT Exam: Pharmacologic Patient Location: Out-Patient Room/Bed: Stress Nurse: Pema Sharma RN Ordering Provider:YUNG KHAN, Contact Number: [phone] BMI: 36.27 Baseline Rhythm: Sinus Rhythm Indications: Chest pain at rest Medical History Medical History: Hypertension, hyperlipidemia, diabetes, obesity, anixety, ADHD, osteoarthritis Cardiac Medications: Sitagliptin, lisinopril, glipizide, jardiance, atorvastatin Allergies: Metformin, doxycycline, trimethoprim, sulfamethoxazole Cardiac Risk Factors: Hypertension, hyperlipidemia, diabetes, smoker (former), obesity, family hx Previous Cardiac Procedures: None Pretest Chest Pain Characteristics: None Exercise History: Sedentary Physical Disabilities: R hip (planned replacement) Lung Sounds: Diminished bases Heart Sounds: Regular Stress Test Details Test: Exercise stress converted to pharmacologic stress due to failure to obtain a diagnostic stress test. Reason for pharmacologic stress test: changed from exercise stress test due to inability to reach t arget heart rate. Nuclear Acquisition: Rest Tc-99m/Stress Tc-99m 1 day Rest Isotope: Tc-99m Sestamibi. Dose: 10.6 Date: 01/02/2022 Injection Time: 0935 Stress Isotope: Tc-99m Sestamibi. Dose: 35.5 Date: 01/02/2022 Injection Time: 1125 HR Resting HR Supine: 77 bpm Max Heart Rate (APMHR): 166.420219 bpm Resting HR Standin bpm Target HR (85% APMHR): 141.626113 bpm Max HR Achieved: 135 bpm % of APMHR: 81.33 Recovery HR: 95 bpm HR response to stress: Normal HR response to stress BP Resting BP Supine: 120/76 mmHg Resting BP Standin/76 mmHg Max BP: 184/84 mmHg Recovery BP: 118/74 mmHg BP response to stress: Normal blood pressure response to stress. ECG Resting ECG: Sinus Rhythm Ectopy: None Stress ECG: Sinus Tachycardia ST Change: No significant ST segment changes noted Arrhythmia: None Recovery ECG: Sinus Rhythm Recovery ST Change: No significant ST segment changes noted Recovery Arrhythmia: None Clinical Reason for Termination: Fatigue Stress Symptoms: General Fatigue, Dyspnea Exercise duration: 6 min04 sec Highest Stage Reached: Stage 3: 3.4 mph at 14% grade. Exercise capacity: 7.37 METs Rate Pressure Product: 84019 Stress ECG Conclusion 1. The resting electrocardiogram was within normal limits 2. The patient underwent low-level exercise coupled with pharmacologic stress 3. Normal hemodynamic response to exercise. The patient achieved 81% of predicted heart rate for age 4. Electrocardiographic portion of the test was negative for myocardial ischemia at a submaximal hear t rate, workload of 7.37 METS 5. There were no significant dysrhythmias Stress Test Summary STAGE Time (mins) Speed (mph) Grade (%) HR BP SYMPTOMS METS Supine 77 120/76 Standing 86 118/76 SpO2 95% 1 3 1.7 10 119 140/82 SpO2 94% 4.6 2 6 2.5 12 130 184/84 SpO2 94% 7 1 min post Lexiscan injection 133 148/78 Moderate SOB, SpO2 94% 3 min post Lexiscan injection 124 150/74 Mild SOB, 3/10 DAVIES, SpO2 95% 6 min post Lexiscan injection 103 128/70 SOB resolved, SpO2 95% 9 min post Lexiscan injection 95 118/74 DAVIES resolved, SpO2 96% Shortly after beginning 3rd stage pt requested execise to stop. Test changed from exercise stress ander t to pharmacologic due to inability to reach target heart rate. Pt tolerated Regadenson with low leve l exercise at 1.2mph and 0% grade well. Reported feeling foggy after administration; symptoms resol navin when supine in recovery. MPI Conclusion Normal myocardial perfusion without evidence of ischemia or prior infarction EF 59% normal wall motion Radiologist Interpretation Radiologist Interpretation by: Bryn Melendez MD Interpretation Date/Time: 01/02/2022 16:18:24
[2022-01-02] MEDS: Regadenoson 0.4 MG/5 ML SYR IVP (11:51)
== END 2022-01-02 01:08 ==
PROVIDERS: PCP Family Medicine; Visit Provider Family Medicine
DX: R07.89 Other chest pain (principal); E11.9 Type 2 diabetes mellitus without complications; I10 Essential (primary) hypertension; E66.8 Other obesity; Z87.891 Personal history of nicotine dependence
CPT/HCPCS: 78452; 93017; J2785

== ENCOUNTER 2022-02-08 01:39 | Outpatient (CLI) | payer OTHER, SELFPAY ==
--- NOTE | 2022-02-08 08:45 | DI.RAD_ITS ---
Exam(s) RF JOINT INJECTION FLUORO GUID EXAM: RF JOINT INJECTION FLUORO GUID CLINICAL HISTORY: R HIP INJ UNDER FLUORO,OA RT HIP, M16.11 TECHNIQUE: Fluoroscopy provided. Radiologist not present. CONTRAST MATERIAL: None COMPARISON: No exams were available for comparison FINDINGS: Fluoroscopy was provided for right hip therapeutic injection Submitted image(s) reveal needle tip to be lateral aspect of the femoral head-neck junction. Intra-a rticular contrast is seen. Please refer to the procedure report for complete details. Cumulative Dose: lyubov Koch=7.90 mGy IMPRESSION: RADIATION DOSE DELIVERED:
[2022-02-08] MEDS: Bupivacaine 0.5% Pres-Free 30 ML VIAL 5 ML IJ (15:37)
--- NOTE | 2022-02-08 15:37 | W.PROCNOTE ---
Procedure Note Date of procedure: 02/08/22 Procedure: Right Hip Injection with Fluoroscopic Guidance Surgeon/Proceduralist/Physician: Ellis Royal Procedure Diagnosis: Right Hip Osteoarthritis Procedure Indications: Juani has had persistent pain of the RIGHT hip and groin. Noninvasive measures have been tried. To serve as both diagnostic and therapeutic, an injection under fluoroscopy was recommended. I had discussed the risks of the procedure and the patient elected to proceed. Procedure Description: Juani was greeted in the flouroscopy room. The correct side was identified and the consent was reviewed with the patient and signed. The patient was then placed in the supine position on the fluoroscopy table. The RIGHT hip was then prepped with Chloraprep. The anterolateral injection starting point was identiifed by bony landmarks and fluoroscopy. The skin and soft tissue in the tract of the injection was anesthetized with 1% Lidocaine. A spinal needle was then inserted deep into the hip joint at the level of the lateral femoral neck under fluoroscopic guidance. A small amount of Omnipaque solution was injected to confirm intraarticular placement. Once confirmed, the hip was injected with 6cc of 0.5% Bupivicaine and 80mg of Depo-Medrol. A bandaid was placed on the injection site. The patient tolerated the procedure well and noted improvement in pre-injection pain.
[2022-02-08] MEDS: Omnipaque 300 MG/ML 10 ML BTL IJ (15:38)
[2022-02-08] MEDS: methylPREDNISolone ACETATE 80 MG/ML VIAL IM (15:39)
== END 2022-02-08 01:59 ==
PROVIDERS: PCP Family Medicine; Visit Provider Student in an Organized Health Care Education/Training Program
DX: M16.11 Unilateral primary osteoarthritis, right hip (principal); M25.551 Pain in right hip
CPT/HCPCS: 20610; 77002; J1040

== ENCOUNTER 2022-03-27 14:40 | Outpatient (REF) | payer OTHER, SELFPAY ==
[2022-03-27 08:36] LABS: Hemoglobin A1C 8.6 % (<5.7)
[2022-03-27 08:47] LABS: ALT 25 U/L (14-59); AST 11 U/L (15-37); Albumin 4.2 g/dL (3.4-5.0); Alkaline Phosphatase 97 U/L (46-116); BUN 16 mg/dL (7-18); Bilirubin, Total 0.6 mg/dL (0.2-1.0); CREATININE 0.9 mg/dL (0.55-1.02); Calcium 8.7 mg/dL (8.5-10.1); Calculated LDL 117 mg/dL (<100); Chloride 102 mmol/L (98-107); Cholesterol 200 mg/dL (<200); Glucose 191 mg/dL (74-106); HDL Cholesterol 61 mg/dL (40-60); Potassium 3.8 mmol/L (3.5-5.1); Sodium 138 mmol/L (136-145); Total Protein 6.9 g/dL (6.4-8.2); Triglyceride 112 mg/dL (<150)
[2022-03-27 08:49] LABS: COMMENT (LAB VIEW ONLY) 35.22 mg/dL; Microalb ug/mg Crea 14.2 ug/mg Cr
== END 2022-03-27 14:41 | disposition home or self-care (01) ==
LOC: LBN 14:40
PROVIDERS: PCP Family Medicine; Visit Provider Family Medicine
DX: Z00.00 Encounter for general adult medical examination without abnormal findings (principal); E11.9 Type 2 diabetes mellitus without complications
CPT/HCPCS: 80053; 80061; 82043; 82570; 83036

== ENCOUNTER 2022-05-10 16:00 | Outpatient (CLI) | payer OTHER, SELFPAY ==
--- NOTE | 2022-05-10 14:15 | DI.RAD_ITS ---
Exam(s) XR PELVIS AP EXAM: XR PELVIS AP CLINICAL HISTORY: pre op R LEONARDO. TECHNIQUE: 2D digital imaging was performed. COMPARISON: No exams were available for comparison FINDINGS: Single view No pelvic nor hip fractures. Advanced degenerative changes in the right hip noted. Mild-moderate degenerative changes in the left hip. IMPRESSION: Osteoarthritic degenerative changes-advanced in the right hip. DATA REPOSITORY: RADIATION DOSE DELIVERED:
== END 2022-05-10 16:01 | disposition home or self-care (01) ==
LOC: DIORS 16:00
PROVIDERS: PCP Family Medicine; Referring Provider Family Medicine; Visit Provider Physician Assistant
DX: Z01.818 Encounter for other preprocedural examination (principal)
CPT/HCPCS: 72170

== ENCOUNTER 2022-05-21 03:15 | Outpatient (CLI) | payer OTHER, SELFPAY | END 2022-05-21 03:16 | disposition home or self-care (01) | PROVIDERS: PCP Family Medicine; Visit Provider Student in an Organized Health Care Education/Training Program ==

== ENCOUNTER 2022-05-21 03:26 | Outpatient (CLI) | payer OTHER, SELFPAY ==
[2022-05-21 09:51] LABS: HCT 40.1 % (36.0-46.0); MCH 28.4 pg (27.0-33.0); MCHC 32.4 % (32.0-36.0); MCV 88 fL (80-95); MPV 8.8 fL (8.0-11.0); Platelet Count 296 10^3/uL (130-400); RBC 4.57 10^6/uL (3.93-5.22); RDW 12.5 % (11.7-14.6); RDW-SD 40.5 fL
[2022-05-21 10:05] LABS: Anion Gap 5.8 mmol/L (3-11); BUN 20 mg/dL (7-18); CO2 30.2 mmol/L (21.0-32.0); CREATININE 0.9 mg/dL (0.55-1.02); Calcium 8.6 mg/dL (8.5-10.1); Chloride 101 mmol/L (98-107); Glucose 158 mg/dL (74-106); Potassium 4.2 mmol/L (3.5-5.1); Sodium 137 mmol/L (136-145)
[2022-05-21 11:30] LABS: Source Nasal/Nares
[2022-05-21 14:20] LABS: COVID-19 PCR Negative (Negative)
== END 2022-05-21 03:27 | disposition home or self-care (01) ==
LOC: LBO 03:26
PROVIDERS: PCP Family Medicine; Visit Provider Student in an Organized Health Care Education/Training Program
DX: M25.551 Pain in right hip (principal); M16.11 Unilateral primary osteoarthritis, right hip; Z20.822 Contact with and (suspected) exposure to COVID-19; Z01.818 Encounter for other preprocedural examination; Z01.812 Encounter for preprocedural laboratory examination
CPT/HCPCS: 36415; 80048; 85027; 87635

== ENCOUNTER 2022-05-22 08:31 | Day surgery (SDC) | payer OTHER, SELFPAY ==
[2022-05-22] VITALS (11 sets, daily range): BP systolic 87–122; BP diastolic 52–81; PULSE 67–79; RESP 13–19; TEMP 35.9–36.6; O2SAT 93–99; BMI 35.3
--- NOTE | 2022-05-22 06:39 | W.ANESPRE ---
General Info Date of Service Date Performed: 05/22/22 Height: 5 ft 5 in Weight: 96.388 kg Body Mass Index (BMI): 35.3 Surgical Procedure: Operation Date: 05/22/22 10:50 Proposed Procedure Side Surgeon p Hip Total Hip Anterior Right Ellis Royal MD Meds Allergies and Home Medications Allergies Allergy/AdvReac Type Severity Reaction Status Date / Time sulfamethoxazole Allergy Intermediate SKIN RASH, Verified 05/22/22 08:46 ? airway swelling trimethoprim Allergy Intermediate SKIN RASH Verified 05/22/22 08:46 doxycycline AdvReac Intermediate Itching Verified 05/22/22 08:46 metformin AdvReac Intermediate Diarrhea Verified 05/22/22 08:46 Home Medication Medication Instructions Recorded blood sugar diagnostic (FreeStyle 03/18/13 Test strips) lancets 33 gauge (OneTouch Delica 03/18/13 Lancets) diclofenac sodium 1 % topical gel 2 g topical QID #150 grams 01/16/21 (Arthritis Pain (diclofenac)) fluconazole 150 mg tablet 150 mg PO Q72H #30 tabs 04/06/21 (Diflucan) atorvastatin 10 mg tablet 10 mg PO QPM #90 tabs 08/15/21 glipizide 10 mg tablet, extended 10 mg PO DAILY #90 tabs 11/14/21 release 24 hr sitagliptin 100 mg tablet (Januvia) 100 mg PO DAILY #90 tabs 02/19/22 fluoxetine 40 mg capsule (Prozac) 40 mg PO DAILY #90 tab-caps 02/21/22 penciclovir 1 % topical cream 1 applic topical QID PRN herpes #5 03/12/22 (Denavir) grams prochlorperazine maleate 10 mg 10 mg PO TID PRN nausea and 03/12/22 tablet vomiting #50 tab-caps clonazepam 0.5 mg tablet 0.5 mg PO DIRECTED #90 tabs 03/26/22 lisinopril 20 mg tablet 20 mg PO DAILY #90 tabs 03/26/22 semaglutide 2 mg/dose (8 mg/3 mL) 0.5 mg (0.1875 mL) subcut QWEEK #6 04/05/22 subcutaneous pen injector mL methylphenidate HCl 10 mg tablet 10 mg PO TID #90 tab-caps 05/08/22 acetaminophen 500 mg tablet 500 mg PO Q6H PRN pain #60 tabs 05/22/22 aspirin 81 mg tablet,delayed 81 mg PO BID 30 days #60 tabs 05/22/22 release celecoxib 200 mg capsule (Celebrex) 200 mg PO BID #30 caps 05/22/22 docusate sodium 100 mg capsule 100 mg PO BID #30 caps 05/22/22 (Colace) oxycodone 5 mg tablet 5 mg PO Q6H PRN severe 05/22/22 post-operative pain #12 tabs pantoprazole 40 mg tablet,delayed 40 mg PO DAILY 14 days #14 tabs 05/22/22 release Current Visit Medications: Current Medications Generic Name Dose Route Start Last Admin Trade Name Freq PRN Reason Stop Dose Admin Acetaminophen 1,000 mg 05/22/22 06:00 Acetaminophen 500 Mg Tab PO PREOP TIFFANIE Celecoxib 400 mg 05/22/22 06:00 Celecoxib 200 Mg Cap PO PREOP TIFFANIE Tranexamic Acid 1,000 mg/ 60 mls @ 360 mls/hr 05/22/22 06:00 Sodium Chloride IV PREOP [facility] Ringer's Solution 1,000 mls @ 80 mls/hr 05/22/22 06:00 IV 06/20/22 23:59 INFUSION TIFFANIE Cefazolin Sodium/Dextrose 1 gm in 50 mls @ 100 mls/hr 05/22/22 06:00 Ancef Duplex IVPB 05/22/22 23:59 PREOP [facility] IV Miscellaneous Supplies 1 each 05/22/22 06:00 Iv Access IV 06/20/22 23:59 DIRECTED TIFFANIE Sodium Chloride 0 ml 05/22/22 06:00 Normal Saline Flush 10 Ml Syr IV 06/20/22 23:59 PRN PRN Sodium Chloride 0 ml 05/22/22 06:00 Normal Saline 10 Ml Vial IJ 06/20/22 23:59 DIRECTED PRN Sterile Water 0 ml 05/22/22 06:00 Water,Injection,Sterile 10 Ml Vial IJ 06/20/22 23:59 DIRECTED PRN PFSH Active Problems Active Problems: Problem Status Onset Code Palpitation R00.2 Chest pain R07.9 Low back pain M54.5 Osteoarthritis of right hip M16.11 De Quervain's disease (tenosynovitis) M65.4 Right wrist pain M25.531 Masses of both breasts N63.10, N63.20 Joint pain M25.50 Premature beats I49.49 Shoulder pain M25.519 Smoker F17.200 Cervical pain (neck) BMI 37.0-37.9, adult Z68.37 Migraine G43.909 Diabetes mellitus 03/24/13 E11.9 Depressive disorder F32.9 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 ADHD (attention deficit hyperactivity disorder) 09/02/17 F90.9 Anxiety F41.9 Medical History Medical History Abnormal cervical Papanicolaou smear CRYO ADHD (attention deficit hyperactivity disorder) (09/02/17) Annual physical exam (10/21/17) Anxiety Choroidal degeneration OS [place] CAPILL[facility] CHOROIDAL NEOVASCULAR MEMBRANE Chronic pharyngitis 03/07/15 Chronic pharyngitis (03/07/15) Chronic tonsillitis (03/07/15) Chronic tonsillitis (03/07/15) Depressive disorder Diabetes mellitus (03/24/13) Disorder of parathyroid gland S/P removal DUB (dysfunctional uterine bleeding) (11/01/15) fibroids on US Joint pain ribs Left ureteral stone Low back pain (06/14/14) Lymphadenopathy right lymph node> left Lymphadenopathy Masses of both breasts Migraine Nephrolithiasis (10/10/16) ACUTE WITH PYELONEPHRITIS; DR. ALICEA Premature beats premature beats PVC's Shoulder pain Smoker Therapeutic procedure shockwave therapy; left extracorporeal shockwave therapy Dr. Santiago Vaginitis Surgical History Surgical History Appendectomy section Cystoscopy 10/08/16 DR. GIL; LEFT URETERAL STONE EXTRACTION H/O section H/O parathyroidectomy History of bilateral ligation of fallopian tubes History of bilateral tubal ligation History of section History of parathyroidectomy Ligation of fallopian tube Parathyroidectomy S/P appendectomy SHOCKWAVE THERAPY (04/10/12) LEFT EXTRACORPOREAL SHOCK WAVE THERAPY (DR. SANTIAGO) Status post appendectomy Tonsillectomy 04/11/15 Tobacco Smoking/Tobacco Use Status: Former Tobacco Use Passive smoking exposure: Yes Second hand exposure: Yes Alcohol Alcohol Intake: current Alcohol intake frequency: a few times a week Alcohol type: wine Substance Use Substance use: Never Substance use type: does not use Vital Signs and Lab Results Vital Signs Most Recent Vital Signs in EMR: Temp Pulse Resp BP Pulse Ox 35.9 C L 79 18 109/76 95 05/22/22 08:38 05/22/22 08:38 05/22/22 08:38 05/22/22 08:38 05/22/22 08:38 Lab Results Blood Type / Crossmatch: No Data to Display Complete Blood Count: White Blood Count 8.30 10^3/uL (4.4-10.8) 05/21/22 09:46 Red Blood Count 4.57 10^6/uL (3.93-5.22) 05/21/22 09:46 Hemoglobin 13.0 g/dL (11.2-15.7) 05/21/22 09:46 Hematocrit 40.1 % (36.0-46.0) 05/21/22 09:46 Platelet Count 296 10^3/uL (130-400) 05/21/22 09:46 Complete Metabolic Panel: Sodium Level 137 mmol/L (136-145) 05/21/22 09:46 Potassium Level 4.2 mmol/L (3.5-5.1) 05/21/22 09:46 Chloride Level 101 mmol/L (98-107) 05/21/22 09:46 Carbon Dioxide Level 30.2 mmol/L (21.0-32.0) 05/21/22 09:46 Blood Urea Nitrogen 20 mg/dL (7-18) H 05/21/22 09:46 Creatinine 0.9 mg/dL (0.55-1.02) 05/21/22 09:46 Estimated GFR/1.73 m2 >= 60.00 (mL/min/1.73m2) 05/21/22 09:46 Calcium Level 8.6 mg/dL (8.5-10.1) 05/21/22 09:46 Glucose Level 158 mg/dL (74-106) H 05/21/22 09:46 Liver Function Panel: No Data to Display Coagulation Panel: No Data to Display Cardiac Panel: No Data to Display Arterial Blood Gas: No Data to Display Venous Blood Gas: No Data to Display Pancreas Panel: No Data to Display Thyroid Panel: No Data to Display Infectious Disease: Coronavirus (COVID-19)(PCR) Negative (Negative) 05/21/22 09:56 Coronavirus 2019 Source Nasal/Nares 05/21/22 09:56 Blood Cultures: No Data to Display Toxicology Panel: No Data to Display Panel: No Data to Display Imaging and Studies Imaging and Studies Study information below may be from another EMR and interpreted by another provider. Please see original notes in EMR for more complete details. Stress Test Summary: 01/16: 81% of predicted HR, CHERYL was negative for ischemia. MPI with normal perfusion. EF 59%. Anesthesia Assessment and Plan Anesthesia History Personal History: No History of Anesthesia Complications Family History: No Family History of Anesthesia Complications Exercise Tolerance Exercise Tolerance: Metabolic Equivalents>4 Cardiac & Pulmonary Exam Cardiac Exam: Normal S1/S2 Heart Sounds Pulmonary Exam: Clear Bilateral Breath Sounds Implantable Cardiac Device Does patient have a Pacemaker or an ICD?: No Airway Exam Known Difficult Airway: No Mallampati Class: 2 Mouth Opening: Normal (> 3cm) Thyromental Distance: Greater than 3 cm Neck Range of Motion: Full ROM Neck Circumference: Thick Teeth Condition: Edentulous ASA Classification ASA Score: ASA 2 Emergency Case?: No NPO Status NPO Status: NPO Clears >2 hours, Solids >8 hours Status Status: Negative HCG Anesthesia Plan Resuscitation Status: Full Code Anesthesia Technique: Spinal Anesthesia Airway Planned: Natural Airway Monitors Used: Standard Monitors Preoperative Comments:: 56 yo female for hip arthroplasty. Sig PMHx: DM (glipizide, semaglutide, sitagliptin), depression/ADHD (clonazapam, fluoxetine, methylphenidate), former smoker, palpitations, HTN (lisinopril). Plan: spinal, would like [facility] for it.
--- NOTE | 2022-05-22 07:21 | DSE_ITS ---
DS: Diagnosis Discharge Diagnosis (1) Osteoarthritis of right hip: Status: Chronic Discharge Plan Disposition Patient Disposition: HOME Condition: Good Discharge Details Reason For Visit: Right hip DJD Attending Provider: Ellis Royal Primary Care Provider: Keisha Magaña Home Meds and New Rx's Prescriptions: New celecoxib [Celebrex] 200 mg capsule 200 mg PO BID Qty: 30 0RF aspirin 81 mg tablet,delayed release (DR/EC) 81 mg PO BID 30 Days Qty: 60 0RF acetaminophen 500 mg tablet 500 mg PO Q6H PRN (Reason: pain) Qty: 60 2RF pantoprazole 40 mg tablet,delayed release (DR/EC) 40 mg PO DAILY 14 Days Qty: 14 0RF docusate sodium [Colace] 100 mg capsule 100 mg PO BID Qty: 30 0RF oxycodone 5 mg tablet 5 mg PO Q6H PRN (Reason: severe post-operative pain) Qty: 12 0RF Rx Instructions: Take one tablet up to every 6 hours as needed for severe pain Continued lisinopril 20 mg tablet 20 mg PO DAILY Qty: 90 5RF clonazepam 0.5 mg tablet 0.5 mg PO DIRECTED Qty: 90 5RF Rx Instructions: 1 tab AM and Hs and 1/2 T pm atorvastatin 10 mg tablet 10 mg PO QPM Qty: 90 5RF (DME) FreeStyle Test 1 EACH strip 1 strip Miscellaneous DAILY Rx Instructions: DX:250. (DME) lancets [OneTouch Delica Lancets] 1 EACH misc 1 ea Sub-Q DAILY Rx Instructions: DX:250. diclofenac sodium [Arthritis Pain (diclofenac)] 1 % gel 2 g topical QID Qty: 150 3RF Rx Instructions: apply to wrist fluconazole [Diflucan] 150 mg tablet 150 mg PO Q72H Qty: 30 4RF glipizide 10 mg tablet extended release 24hr 10 mg PO DAILY Qty: 90 5RF Januvia 100 mg tablet 100 mg PO DAILY Qty: 90 4RF fluoxetine [Prozac] 40 mg capsule 40 mg PO DAILY Qty: 90 11RF Denavir 1 % cream 1 applic Topical QID PRN (Reason: herpes) Qty: 5 4RF prochlorperazine maleate 10 mg tablet 10 mg PO TID PRN (Reason: nausea and vomiting) Qty: 50 0RF semaglutide 2 mg/dose (8 mg/3 mL) pen injector 0.5 mg subcut QWEEK Qty: 6 8RF methylphenidate HCl 10 mg tablet 10 mg PO TID MDD 3 Qty: 90 0RF Discontinued ibuprofen 800 MG tablet 800 mg PO PRN acetaminophen [Mapap Extra Strength] 500 MG tablet 500 mg PO PRN PRN Discharge Instructions Additional Instructions: Total Hip Discharge Instructions Activity: The most important activity is to walk. You should try to take short walks a few times a day. You have no restrictions on movement or positioning, but do not try to force what you do. You will find some stiffness and weakness with hip flexion (lifting your knee). Do not try to strengthen this too early, continue to practice walking and stairs and this will come. - Outpatient physical therapy can be helpful to help return you to a normal gait and improve your flexibility and strength. This can start around 2 weeks. For some patients, it?s not necessary. Usually this is determined at the time of discharge or at the first post-operative visit. - You should wear the KO hose on both legs for 2 weeks. Dressing: Keep the surgical dressing in place for at least one week. After the first week it may be removed and replace with light gauze and tape or nothing. It may get wet after 3 days but avoid soaking the dressing. If it gets wet, just lightly pat dry. It is important to always keep some gauze between skin folds, especially when you are sitting. Spend some time with the wound exposed when you are lying flat as the incision does wrinkle onto itself. Medications: - You should take Tylenol and an anti-inflammatory Celebrex as your primary pain control medications. If the Celebrex is too expensive or not covered, please call the office for another alternative (Advil/Ibuprofen or Naproxen/Aleve). - You have been prescribed a stronger pain medication Oxycodone for breakthrough pain, take as needed as prescribed. - You have also been prescribed a stomach acid reduction agent Pantoprozole to h elp reduce stomach acid and reflux. - You will be taking Aspirin 81mg twice a day for DVT prevention unless instructed otherwise. - If you have constipation you should take Colace or Miralax (both ove [id number]). It takes most people 3-4 days to have a bowel movement. Follow-up: 2 weeks If you have any acute concerns or questions, please do not hesitate to contact the office at [phone]. You may contact Dr. Royal with any questions after hours through the hospital at [phone] or on his cell phone at [phone]. Referrals: Ellis Royal MD [ [facility] STAFF PHYSICIAN] - Equipment/Supplies: Walker Activity:: Activity as Tolerated Remove Dressings/Wound Care:: Do Not Remove Shower/Bathe:: Cover Diet:: As Tolerated Discharge Orders Discharge Orders: Discharge Order (Routine); Ordered 05/22/22 Ordered By: Ellis Royal DS: Summary Time Spent with Patient providing and/or coordinating discharge services: Less than 30 minutes Status at Discharge Functional status at discharge: uses cane/walker Overall status at discharge: patient is progressing back to baseline Mental Status: mental status grossly normal Speech and Movement: speech and movement normal Mood: congruent mood Affect: normal affect Exam Psych Mental Status: mental status grossly normal Speech and Movement: speech and movement normal Mood: congruent mood Affect: normal affect DS: Data Vitals/I&O Vitals and I&O: Intake & Output 05/21/22 05/21/22 05/22/22 11:59 23:59 11:59 Weight 212 lb 7.986 oz 212 lb 7.986 oz PFSH All Active Problems Palpitation (Acute) Chest pain (Acute) Low back pain (Acute) Osteoarthritis of right hip (Chronic) De Quervain's disease (tenosynovitis) (Acute) Right wrist pain (Acute) Masses of both breasts (Acute) Joint pain (Acute) Premature beats (Acute) Shoulder pain (Acute) Smoker (Acute) Cervical pain (neck) (Acute) BMI 37.0-37.9, adult (Acute) Migraine (Chronic) Diabetes mellitus (Chronic 03/24/13) Depressive disorder (Chronic) Choroidal degeneration (Chronic) OS GULSHAN CAPILLARY CHOROIDAL NEOVASCULAR MEMBRANE ADHD (attention deficit hyperactivity disorder) (Chronic 09/02/17) Anxiety (Chronic) Medical History Abnormal cervical Papanicolaou smear CRYO ADHD (attention deficit hyperactivity disorder) (09/02/17) Annual physical exam (10/21/17) Anxiety Choroidal degeneration OS GULSHAN CAPILLARY CHOROIDAL NEOVASCULAR MEMBRANE Chronic pharyngitis 03/07/15 Chronic pharyngitis (03/07/15) Chronic tonsillitis (03/07/15) Chronic tonsillitis (03/07/15) Depressive disorder Diabetes mellitus (03/24/13) Disorder of parathyroid gland S/P removal DUB (dysfunctional uterine bleeding) (11/01/15) fibroids on US Joint pain ribs Left ureteral stone Low back pain (06/14/14) Lymphadenopathy right lymph node> left Lymphadenopathy Masses of both breasts Migraine Nephrolithiasis (10/10/16) ACUTE WITH PYELONEPHRITIS; DR. ALICEA Premature beats premature beats PVC's Shoulder pain Smoker Therapeutic procedure shockwave therapy; left extracorporeal shockwave therapy Dr. Santiago Vaginitis Surgical History Appendectomy section Cystoscopy 10/08/16 DR. GIL; LEFT URETERAL STONE EXTRACTION H/O section H/O parathyroidectomy History of bilateral ligation of fallopian tubes History of bilateral tubal ligation History of section History of parathyroidectomy Ligation of fallopian tube Parathyroidectomy S/P appendectomy SHOCKWAVE THERAPY (04/10/12) LEFT EXTRACORPOREAL SHOCK WAVE THERAPY (DR. SANTIAGO) Status post appendectomy Tonsillectomy 04/11/15 Family History Mother Essential hypertension Depression Father , age 64 Diabetes Essential hypertension Hyperlipidemia Alcohol abuse Brother No problems noted. Maternal Grandfather Heart disease Lung cancer Paternal Grandfather Prostate cancer Maternal Grandmother Diabetes Essential hypertension Bladder cancer Paternal Grandmother Essential hypertension FAMILY HISTORY Abdominal aortic aneurysm RUPTURED Son Depression Son No problems noted. Daughter Depression Social History (Updated 12/20/21 @ 14:08 by Candace Souza) Smoking/Tobacco Use Status: Former Tobacco Use tobacco type: cigarettes Quit Date: 11/25/09 Tobacco: How many years used: 25 Second Hand Exposure: Yes Smoking risk assessment performed?: Yes Alcohol Intake: current Alcohol Intake frequency: a few times a month Alcohol type: wine Drug use: Never Substance use type: does not use Caregiver/Support person: No Household members: significant other Housing: house Do you need help understanding health information?: Never current occupation: RN Pets and animals: Yes Pets and animals: cat(s) and dog(s) Sexually active: Yes Do you think of yourself as: straight/heterosexual Current gender identity: female What is your relationship status?: living with partner How often do you talk on the phone with friends or family?: twice per week How often do you get together with friends or relatives?: once per week How often do you attend zoroastrian or sikh services?: decline to answer Do you belong to any clubs or organized social groups?: no Panel score (0-1 are the most socially isolated patients): 2 What type of physical activity do you participate in: walking Frequency: does not exercise Hannah/Evangelical: Protestant Special hannah needs: No Seatbelt use: always Helmet use: Yes Helmet use: always Drive intox or ride w/intox piledriver carpenter: No Do you feel safe at home: Yes Do you feel safe in your relationship?: Yes Would you like helpful sources: No
[2022-05-22] MEDS: Lactated Ringers 1,000 ML 80 ML IV (09:00)
[2022-05-22] MEDS: Acetaminophen 500 MG TAB 1000 MG PO (09:00)
[2022-05-22] MEDS: Celecoxib 200 MG CAP 400 MG PO (09:00)
--- NOTE | 2022-05-22 09:30 | DI.RAD_ITS ---
Exam(s) XR HIP RT IN OR EXAM: XR HIP RT IN OR CLINICAL HISTORY: TOTAL HIP TECHNIQUE: 2D and realtime digital imaging was performed. CONTRAST MATERIAL: Refer to procedure report. COMPARISON: No exams were available for comparison FINDINGS: Fluoroscopy was provided for Dr. Royal during the performance of a right total hip replacement. Please refer to the procedure report for complete details. Ka,r=5.18 mGy IMPRESSION: RADIATION DOSE DELIVERED:
[2022-05-22] MEDS: ceFAZolin 2 GM/50 ML BAG IVPB (10:42)
--- NOTE | 2022-05-22 12:32 | W.ANESPOSTOP ---
Postoperative Evaluation Date, Time and Location Date Performed: 05/22/22 Time Performed: 12:32 Patient Location: PACU Vital Signs Most Recent Imported Vital Signs: Most Recent Vital Signs Temp Pulse Resp BP Pulse Ox 36.5 C 69 15 94/52 L 95 05/22/22 12:24 05/22/22 12:24 05/22/22 12:24 05/22/22 12:24 05/22/22 12:24 Pain Score Most Recent Pain Score: Most Recent Pain Score Pain Level 0 05/22/22 12:24 Assessment Mental Status: Awake (Alert & Oriented to Patient Baseline) Airway and Respiratory Function: Patent airway with normal (patient baseline) respiratory exam Cardiovascular Function: Hemodynamically Stable Hydration Status: Adequately Hydrated Nausea & Vomiting: No Nausea or Vomiting Pain: Other (spinal still in effect. ) Peripheral Nerve Block: Patient did not receive a nerve block
--- NOTE | 2022-05-22 12:44 | ROE_ITS ---
Date of service: 05/22/22 Time of Service: 12:15 Operative Note Operative Note DATE OF PROCEDURE: 05/22/22 PRE-OP DIAGNOSIS: Right Hip Osteoarthritis POST-OP DIAGNOSIS: same PROCEDURE: Right Anterior Total Hip Arthroplasty with Intraoperative Navigation SURGEON: Ellis Royal WEB APPLICATIONS PROGRAMMER: Risa Ham ANESTHESIA TYPE: Spinal Refer to Anesthesia Record ESTIMATED BLOOD LOSS: 100 PATHOLOGY: none sent TOURNIQUET TIME: 0 COMPLICATIONS: None Patient was transported to: PACU Patient's condition: stable Implants: 1. Depuy Eupora Acetabular Component, 50mm 2. Depuy Acetabular Liner, [id number] 3. Depuy Corail Short Neck Collared Femoral Stem, Size 12 4. Depuy Altrx Ceramic Femoral Head, Size 32+5mm Indications: I have seen Juani in clinic for symptoms of hip arthritis, confirmed with radiographic findings. She has exhausted nonoperative methods and was having significant limitations in daily function and desired better function and less pain. I discussed the technical details of a hip replacement. I explained the risks of the procedure to include, but not limited to, bleeding, infection, pain, stiffness, fracture, damage to nerves and vessels, damage to muscles and tendons, loosening, instability, leg length inequality, need for repeat procedure, blood clot and cardiopulmonary demise. Despite these risks, Juani elected to proceed. Findings: There was significant signs of arthritis throughout the hip. Large osteophytes are present surrounding the entirety of the femoral neck Procedure Description: Juani was greeted in the preoperative holding area where the correct side was identified and marked. The consent was reviewed with the patient and signed. The history and physical was updated. All questions were answered. She was taken back to the operating room. A spinal anesthestic was then administered. The feet were wrapped with cast padding and Coban and then placed into the boot liners and then into the boots. Care was taken to protect the skin and make sure the heels were fully down and the boots were stable. The patient was then positioned onto the HANA table. Both legs were held in a neutral position. SCDs were applied. The patient was then slid down onto a peroneal post. Prophylactic antibiotics in the form of cefazolin were administered. 1g of Tranxemic Acid was given intravenously within 30 minutes of incision. The right leg was then prepped with Chloraprep and draped in a standard fashion. A second prep with Chloraprep was performed prior to placement of a shower-curtain type drape with Iodine impregnated skin protection. A timeout to confirm correct identity, side and site, procedure, allergies, anesthesia, and medical concerns was performed. An obliquely oriented incision was made starting lateral to the ASIS and running distal over the Tensor Fascia Alena (TFL) muscle belly toward the fibular head, approximately 10cm. The skin and soft tissue was dissected sharply, through Simone?s fascia, and to the fascia of the TFL. With the fascia and superior border of the IT band identified, the fascia was incised with a new knife just above any perforators from the IT band. The TFL muscle belly was bluntly dissected away from the fascia and moved laterally. The fat between TFL and rectus was identified to ensure the dissection was not within the TFL. Blunt dissection created space between abductors and the capsule and retractor was placed over the lateral femoral neck. The fibers of the rectus femoris tendon were identified and these were freed from the anterior capsule. A second cobra retractor was placed around the medial femoral neck. The TFL was further retracted laterally to show the deep fascia. Careful dissection through this layer identified three main crossing vessels of the lateral femoral circumflex. These were cauterized in multiple locations and then cut without any noticeable bleeding. The TFL was further released bluntly from the deep fascia to expose anterior hip capsule and fat the Rinku orthopaedic retractor was then placed beneath the TFL and against sartorius and medial soft tissues to protect and retract the soft tissues. A T-capsulotomy was then performed starting at the superior lateral acetabulum and moving distally to the intertrochanteric ridge. These capsular flaps were tagged with a No. 1 Ethibond and elevated from within. The capsular flaps were released to the shoulder of the lateral neck and to the lesser trochanter to give excellent visualization of the proximal femur. A neck osteotomy was performed using an oscillating saw based on preoperative templates. This cut started in the shoulder and of the lateral neck and exited medially. The saw was at all times directed medially to avoid injury to the greater trochanter. Gross traction was applied to the leg and the osteotomy opened. The femoral head was removed with a corkscrew, making sure to protect the TFL on its exit. Traction was released after head removal. This was measured on the back table to determine the starting reamer size. Portions of the rectus obscuring visualization were minimally elevated off the superior acetabulum. An anterior retractor was placed over the anterior wall between capsule and labrum and attached to the Gripper retraction system. The femur was rotated to 90 degrees and medial capsule was fully released until the lesser trochanter was palpable and visible; the femur was returned to 30 degrees. A posterior retractor was placed similarly between capsule and labrum. This provided excellent visualization. The contents of the cotyloid fossa were removed with electrocautery and the labrum was removed with a knife. There was significant chondromalacia of the superior acetabulum. Acetabular reaming began with a 46mm reamer. This first reaming was directed anterior to posterior and medial to get down to the true floor. This was inspected and reamed until the true floor was reached. The anterior retractor was then released and entry and exit was provided by traction on the capsular flaps. I then reamed sequentially up to a 50mm reamer where good fit was obtained. The larger reamers were oriented based on anatomical reference of the anterior and lateral goldman to ensure proper abduction and anteversion. Positioning and size was confirmed with the fluoroscopy. A 50mm Depuy Eupora acetabular component was selected. The acetabulum was reamed around the periphery with the selected acetabular size to prevent a rim fit. The deep tissues were irrigated. The acetabular component was then impacted in a position of about 40-45 degrees of abduction and 15-20 degrees of anteversion, using the patient?s anatomy as the ultimate landmark. Fluoroscopy was used to confirm this. There was excellent dulser of the acetabular component and the inserting handle was removed. The acetabular liner, Depuy [id number] polyethylene liner, was inserted and lined up with the tines of the acetabular component. There was no soft tissue interposition. The liner was then impacted into position and confirmed to be well-seated. A portion of the hilda-articular cocktail was then injected around the acetabulum into the capsule and periosteum. This cocktail consisted of 123mg of Ropivacaine, 0.25mg of Epinephrine, 0.04mg of Clonidine, and 15mg of Ketorolac, diluted to 50cc. The leg was rotated to 120 degrees. Any remaining medial capsule was released until the lesser trochanter was easily palpable. A retractor was placed medially. The lateral capsule was further released into the shoulder to allow access to the greater trochanter. A Banegas retractor was placed over the greater trochanter which allowed the trochanter to flip in front of the capsule for excellent exposure. The leg was brought down into maximal extension and 20 degrees of adduction while ensuring there was no impingement on the acetabulum. Any remnant capsule within the trochanter was released. Piriformis and obturator externis were identified and protected. There was excellent access to the proximal femur. The lateral neck remnant was removed with a rongeur. A blunt canal probe was used to identify the canal and trajectory for later broaching. A box osteotome initiated the broach course. A small curved rasp and a curved curette were used to work laterally. Broaching then began with a size 8 Corail broach. This was inserted manually around the trochanter and into the canal before mallet blows. The broach was seated to a few millimeters below the cut level based on the neck cut and the preoperative template. Sequential broaching was continued with the [employer] pneumatic broaching device until a tight fit was obtained with good rotational control of the femur. A trial short neck was inserted along with a +5 trial head. The leg was brought out of extension and adduction and then reduced with traction and internal rotation. The leg was stable anteriorly in a position of 30 degrees of extension and 90 degrees of external rotation. Fluoroscopy was used to ensure there was no fracture and the stem was seated well. Leg lengths were checked with an AP pelvis and pelvic reference points. [employer] navigation system was used to confirm appropriate positioning and leg length and offset. Once content with the desired offset and leg lengths, the leg was brought back into extension, external rotation and adduction. The periosteum and surrounding tissue was injected with remaining portion of the hilda-articular cocktail. The proximal femur was irrigated as well as the deep tissues. The Depuy Corail short neck collared stem, size 12, was then manually inserted into the proximal femur making sure to control rotation. It was then malleted into position with light blows, giving breaks to allow bone expansion and decrease risk of fracture. The selected Depuy Altrx Ceramic Head, size 32+5mm, was then placed onto the clean and dry trunnion and secured with impaction onto the tapered fit. The leg was brought back out of extension and adduction and reduced with traction and internal rotation. Stability was confirmed with no shuck at 90 degrees of external rotation and 30 degrees of extension. No impingement through range of motion arc. Final x-ray images were obtained with fluoroscopy to confirm adequate positioning and no intraoperative fracture. The deep tissues were thoroughly irrigated with Surgiphor, betadine solution. This was allowed to sit in the wound for 3 minutes before being thoroughly irrigated out with normal saline. The capsule was then reapproximated with the previously placed Ethibond sutures. The TFL fascia was finally closed with a No. 2 Stratafix, barbed suture. Deep tissues were then reapproximated with 0 Vicryl and a running 2-0 Vicryl. The skin was closed with a running 4-0 Monocryl in a subcuticular fashion. This was reinforced with skin glue. A Mepilex silver dressing was applied. At the end of the case, all counts were correct. Juani was transferred to the hospital bed without difficulty and suffering no apparent complication. Juani has a good prognosis. Physical therapy will start today and without restrictions, weight-bearing as tolerated. Aspirin 81mg BID will be used for DVT prophylaxis.
[2022-05-22] MEDS: HYDROmorphone 2 MG/ML VIAL IVP ×3 (12:46→13:21)
[2022-05-22] MEDS: Normal Saline 10 ML VIAL IJ ×2 (12:50→12:58)
[2022-05-22] MEDS: diazePAM 10 MG/2 ML SYR 5 MG IVP (13:06)
[2022-05-22] MEDS: oxyCODONE 5 MG TAB PO (14:08)
--- NOTE | 2022-05-22 15:44 | IN_ITS ---
PT Notes Visit Reasons: Right hip DJD Inpatient Physical Therapy Evaluation Date: 05/22/2022 Referring Doctor: Ellis Royal MD PT Orders: PT CONSULT: OA of the right hip status post right LEONARDO Precautions: Fall precaution Patient Profile/Admitting Diagnosis: 56-year-old female with osteoarthritis of the hips, status post right LEONARDO earlier today PMHX: edical History? Abnormal cervical Papanicolaou smear CRYO ADHD (attention deficit hyperactivity disorder) (09/02/17) Annual physical exam (10/21/17) Anxiety Choroidal degeneration [facility] [place] [facility] CHOROIDAL NEOVASCULAR MEMBRANE Chronic pharyngitis 03/07/15Chronic pharyngitis (03/07/15) Chronic tonsillitis (03/07/15) Chronic tonsillitis (03/07/15) Depressive disorder Diabetes mellitus (03/24/13) Disorder of parathyroid gland S/P removal DUB (dysfunctional uterine bleeding) (11/01/15) fibroids on US Joint pain ribsLeft ureteral stone Low back pain (06/14/14) Lymphadenopathy right lymph node> leftLymphadenopathy Masses of both breasts Migraine Nephrolithiasis (10/10/16) ACUTE WITH PYELONEPHRITIS; DR. ALICEA Premature beats premature beats PVC'sShoulder pain Smoker Therapeutic procedure shockwave therapy; left extracorporeal shockwave therapy Dr. SantiagoVaginitis Surgical History? Appendectomy section Cystoscopy 10/08/16 DR. GIL; LEFT URETERAL STONE EXTRACTION H/O section H/O parathyroidectomy History of bilateral ligation of fallopian tubes History of bilateral tubal ligation History of section History of parathyroidectomy Ligation of fallopian tube Parathyroidectomy S/P appendectomy SHOCKWAVE THERAPY (04/10/12) LEFT EXTRACORPOREAL SHOCK WAVE THERAPY (DR. SANTIAGO) Status post appendectomy Tonsillectomy 04/11/15 Social History/Home Situation: Lives at home with a significant other, bath and bedroom on the second floor with 10-14 steps in the room. She has a few steps entering the home without a railing. She plans on sleeping temporarily on the first floor. Current Functional Limitations: Independent with all ADLs other than some difficulty donning and doffing her socks and shoes Equipment Owned/DME: Cane, has bathtub seat but generally does not use it with shower grab bar Subjective: Patient complains of interval discomfort throughout the lateral aspect of the hip and right thigh. This improved following ambulation Objective: General Observation: Mildly lethargic, resting comfortably in bed. No complaints of lightheadedness with the upright position etc. Mental Status: Alert and oriented x3 Pain: Complains of discomfort throughout the lateral aspect the hip and thigh and rates his #2/10 on a VAS Vital Signs: Her resting pulse was 76 bpm; 100 bpm following ambulation ROM: She had pain-free functional range of motion of her articular structures, other than her right hip which creates some mild discomfort throughout the lateral aspect of the thigh and hip. Her hip flexion in the sitting position was greater than 90 degrees, and rotation was 30 degrees and nonpainful Strength: Her strength is generally rated 5/5 throughout other than her right quad set for 5 and hip musculature 3/5 Sensation: Intact to light touch Bed Mobility/Transfers: Independent with assuming the supine to sitting to standing positions Gait: Ambulated approximately 50 feet with an FW W and mild contact guarding. Is weightbearing as tolerated and had an uneven stride, right greater than left, but this normalized once instructed. She ascended and descended stairs appr opriately after instruction Balance: Static Sitting: Stable Dynamic Sitting: Stable Static Standing: Stable Dynamic Standing: Fair Special Tests: Mobility Limitations Standardized Measure [facility] AM-PAC 6 clicks Basic Mobility Inpatient Short Form: Raw Score: 22 standardized Score: 5.43 CMS Score: 20.91% Informed Consent/Education: Patient instructed in purpose of PT consult and plan of care. Assessment: Patient is a 56year old female referred to physical therapy services with the diagnosis of status post right LEONARDO. Patient presents with clinical signs and symptoms consistent with this diagnosis, as demonstrated by the following impairment level findings: Discomfort throughout the lateral aspect of the right hip and thigh, some mild weakness of the right thigh and hip musculature, and gait impairment.. Patient is assessed as a Low 48475 complexity based on the following: History: See comorbidities and social history Examination: See above for functional imitations impairments Presentation: Stable Decision Making: Low complexity based on her clinical findings Goals: Goals of independent bed mobility, and ambulation with an FW W weightbearing as tolerated with a stable gait as well as climbing stairs were met Plan of Care/Treatment Plan: Today session consisted of patient education, bed mobility activities, instructing in proper gait mechanics with a FWW, weightbearing as tolerated on the right lower extremity focusing in equal strides, along with stair climbing. She is instructed on home exercise program consisting of quad and gluteal sets and ankle pumps. She has a follow-up appointment with Dr. Roayl in 2 weeks, and if he feels that she needs further therapy, she will contact our office. DISCHARGE RECOMMENDATIONS: Home with no services TREATMENT CODE/TIME: 9716 12/24 minutes Disclaimer: This note was created using [employer] voice recognition software. It was reviewed for major content. However, there may be multiple small discrepancies and errors due to the voice recognition aspects of the software.
== END 2022-05-22 15:55 | disposition home or self-care (01) ==
PROVIDERS: PCP Family Medicine; Visit Provider Student in an Organized Health Care Education/Training Program
PROC: (CPT 27130; principal; 2022-05-22 10:30)
DX: M16.11 Unilateral primary osteoarthritis, right hip (principal); E11.9 Type 2 diabetes mellitus without complications; I10 Essential (primary) hypertension; Z86.73 Personal history of transient ischemic attack (TIA), and cerebral infarction without residual deficits; J45.909 Unspecified asthma, uncomplicated; J44.9 Chronic obstructive pulmonary disease, unspecified; G47.30 Sleep apnea, unspecified; K75.9 Inflammatory liver disease, unspecified; F17.210 Nicotine dependence, cigarettes, uncomplicated; F41.9 Anxiety disorder, unspecified
CPT/HCPCS: 27130; 20985; 97161; 73501; J0690; J1100; J2250; J2405; J3360

== ENCOUNTER 2022-06-04 10:54 | Outpatient (CLI) | payer OTHER, SELFPAY ==
--- NOTE | 2022-06-04 10:30 | DI.RAD_ITS ---
Exam(s) XR HIP RT COMPLETE AP PELVIS EXAM: XR HIP RT COMPLETE AP PELVIS CLINICAL HISTORY: 1ST POST OP R LEONARDO. TECHNIQUE: 2D digital imaging was performed. COMPARISON: CR XR PELVIS AP from 05/10/2022 FINDINGS: Two views Stable position alignment of the components of recently placed right hip prosthesis. No fracture. IMPRESSION: DATA REPOSITORY: RADIATION DOSE DELIVERED:
== END 2022-06-04 10:55 | disposition home or self-care (01) ==
LOC: DIORS 10:54
PROVIDERS: PCP Family Medicine; Referring Provider Family Medicine; Visit Provider Student in an Organized Health Care Education/Training Program
DX: Z96.641 Presence of right artificial hip joint (principal); Z47.1 Aftercare following joint replacement surgery
CPT/HCPCS: 73502

== ENCOUNTER 2022-08-20 15:26 | Outpatient (CLI) | payer OTHER, SELFPAY ==
--- NOTE | 2022-08-20 15:00 | DI.RAD_ITS ---
Exam(s) XR KNEE RT 3V AP,LAT,BRETT EXAM: XR KNEE RT 3V AP,LAT,BRETT CLINICAL HISTORY: pain and swelling. TECHNIQUE: 2D digital imaging was performed. Three views. COMPARISON: No exams were available for comparison FINDINGS: BONES: No acute fracture is present. No bony destructive lesion is seen. Mild periarticular spurring throughout. JOINTS: Joint spaces are well maintained. The knee is normally aligned. A small joint effusion is se en. SOFT TISSUE: Normal. IMPRESSION: Mild degenerative changes. DATA REPOSITORY: RADIATION DOSE DELIVERED:
== END 2022-08-20 15:27 | disposition home or self-care (01) ==
LOC: DIORS 15:26
PROVIDERS: PCP Family Medicine; Referring Provider Family Medicine; Visit Provider Physician Assistant Surgical
DX: M25.461 Effusion, right knee (principal); M17.11 Unilateral primary osteoarthritis, right knee
CPT/HCPCS: 73562

== ENCOUNTER → 2022-09-10 12:12 | Outpatient (CLI) | payer OTHER, SELFPAY ==
--- NOTE | 2022-09-10 10:00 | DI.MRI_ITS ---
Exam(s) MR LOWER JOINT RT WO EXAM: MR LOWER JOINT RT WO CLINICAL HISTORY: PAIN, INJURY, ?MENISCUS TEAR m23.91 internal derangement rt knee. TECHNIQUE: Multiplanar multisequence MRI was performed. COMPARISON: CR XR KNEE RT 3V AP,LAT,BRETT from 08/20/2022 FINDINGS: BONES: No evidence of a fracture. Mild marrow edema is seen in the medial aspect of the medial tibia l plateau which may represent a contusion. JOINTS: There is thinning of the articular cartilage in the medial femoral condyle. There is also mi ld thinning of the articular cartilage in the medial patellar facet with mild subchondral edema. The re is a small amount of fluid in the joints. TENDONS: Extensor mechanism: Unremarkable. Medial retinaculum: Unremarkable. Lateral retinaculum: Unremarkable. Popliteus: Unremarkable. MUSCLES: Unremarkable. MENISCI: The medial meniscus is unremarkable. The lateral meniscus is unremarkable. SOFT TISSUES: There is mild edema in the soft tissues superficial or adjacent to the medial tibial pl ateau. LIGAMENTS: Anterior Cruciate: There is no evidence of a tear. There is mild increased signal seen in and around the distal tendon which may represent a sprain. Posterior Cruciate: Unremarkable. Medial Collateral:Unremarkable. Lateral Collateral: Unremarkable. OTHER: IMPRESSION: 1. There is no evidence of a meniscal tear. 2. No evidence of a ligament tear. Question of a sprain of the ACL. 3. Contusion involving the medial proximal tibia. Mild edema in the adjacent soft tissues. 4. Cartilage defect overlying the medial femoral condyle suspicious for osteochondral injury. DATA REPOSITORY:
== END ==
PROVIDERS: PCP Family Medicine; Visit Provider Student in an Organized Health Care Education/Training Program
DX: M23.91 Unspecified internal derangement of right knee (principal); S80.11XA Contusion of right lower leg, initial encounter; X58.XXXA Exposure to other specified factors, initial encounter
CPT/HCPCS: 73721

== ENCOUNTER 2022-09-12 02:43 | Outpatient (CLI) | payer OTHER, SELFPAY ==
[2022-09-12 16:07] LABS: ALT 26 U/L (14-59); AST 15 U/L (15-37); Albumin 4.5 g/dL (3.4-5.0); Alkaline Phosphatase 96 U/L (46-116); Anion Gap 9.1 mmol/L (3-11); BUN 8 mg/dL (7-18); Bilirubin, Total 1.1 mg/dL (0.2-1.0); CO2 27.9 mmol/L (21.0-32.0); CREATININE 0.8 mg/dL (0.55-1.02); Calcium 9.3 mg/dL (8.5-10.1); Calculated LDL 107 mg/dL (<100); Chloride 98 mmol/L (98-107); Cholesterol 219 mg/dL (<200); Estimated GFR 86.96 (mL/min/1.73m2); Glucose 121 mg/dL (74-106); HDL Cholesterol 58 mg/dL (40-60); Potassium 3.6 mmol/L (3.5-5.1); Sodium 135 mmol/L (136-145); Total Protein 7.8 g/dL (6.4-8.2); Triglyceride 272 mg/dL (<150)
== END 2022-09-12 02:44 | disposition home or self-care (01) ==
LOC: LBO 02:43
PROVIDERS: PCP Family Medicine; Visit Provider Family Medicine
DX: E11.9 Type 2 diabetes mellitus without complications (principal); Z68.37 Body mass index [BMI] 37.0-37.9, adult
CPT/HCPCS: 80053; 80061; 83036

== ENCOUNTER 2022-11-01 07:45 | Emergency (ER) | payer OTHER, SELFPAY ==
--- NOTE | 2022-11-01 07:45 | DI.CT_ITS ---
Exam(s) CT BRAIN NECK CTA EXAM: CT BRAIN NECK CTA CLINICAL HISTORY: Slurred speech, dizzy. TECHNIQUE: Imaging Protocol: Axial CT angiography was performed with multi-slice acquisition and mu lti-planar and/or 3D reconstructions. CONTRAST MATERIAL: Intravenous: Omnipaque 350 contrast volume:85 mL COMPARISON: None. FINDINGS: CT Head W/O and W: Ventricles and Extra axial spaces: Normal in size and morphology for the patient's age. Hemorrhage: None. Cerebral parenchyma: No evidence of an acute territorial infarct. Midline shift: None. Brainstem/Cerebellum: Normal. Calvarium: Normal. Visualized Paranasal sinuses/Mastoids: Clear. Soft Tissues: Unremarkable. Enhancement: Unremarkable. CTA Neck W: Common Carotid: Right: No dissection, occlusion or significant stenosis. Left: No dissection, occlusion or significant stenosis. External Carotid: Right: No occlusion or significant stenosis. Left: No occlusion or significant stenosis. Internal Carotid: Right: No dissection, occlusion or significant stenosis. Left: No dissection, occlusion or significant stenosis. Vertebral Artery: Right: No dissection, occlusion or significant stenosis. Left: No dissection, occlusion or significant stenosis. Lung Apices: Normal. Bones: Within normal limits for the patient's age. Soft Tissues: Normal. Thyroid gland: Unremarkable. CTA Brain W: Internal Carotid Arteries: Normal. Anterior Cerebral Arteries: Right: No aneurysm, occlusion or significant stenosis. Left: No aneurysm, occlusion or significant stenosis. Middle Cerebral Arteries: Right: No aneurysm, occlusion or significant stenosis. Left: No aneurysm, occlusion or significant stenosis. Posterior Cerebral Arteries: Right: No aneurysm, occlusion or significant stenosis. Left: No aneurysm, occlusion or significant stenosis. Vertebral Arteries: Right: No aneurysm, occlusion or significant stenosis. Left: No aneurysm, occlusion or significant stenosis. Basilar Artery: No aneurysm, occlusion or significant stenosis. IMPRESSION: 1. No large vessel occlusion or significant stenosis on the CT angiography of the head. 2. No acute intracranial process. 3. No occlusion or significant stenosis on the CT angiography of the neck. 4. Findings were discussed with the emergency department at 8:48 a.m. on 11/01/2022. RADIATION DOSE DELIVERED: 2,119.97mGy.cm Total DLP DATA REPOSITORY: All CT scans at this facility are submitted to the National Radiology Data Registry (NRDR) Dose Index Registry (DIR) with the [employer] (ACR). RADIATION OPTIMIZATION: All CT scans at this facility use at least one of these dose optimization te chniques: automated exposure control; mA and/or kV adjustment per patient size (includes targeted exa ms where dose is matched to clinical indication); or iterative reconstruction.
--- NOTE | 2022-11-01 07:45 | DI.MRI_ITS ---
Exam(s) MR BRAIN WO EXAM: MR BRAIN WO CLINICAL HISTORY: Slurred speech, rule out stroke TECHNIQUE: Multiplanar multisequence MRI of the brain was performed. COMPARISON: CT CT BRAIN NECK CTA from 11/01/2022 FINDINGS: The examination is limited due to patient motion artifact. VENTRICLES AND EXTRA AXIAL SPACES: Normal in size and morphology for the patient's age. MIDLINE SHIFT: None. CEREBRAL PARENCHYMA: No focus of restricted diffusion to suggest acute infarct. No space-occupying le allen identified. There are few tiny hyperintense foci on the FLAIR and T2 weighted images in the whit e matter likely reflecting early small vessel ischemic disease. HEMORRHAGE: None. BRAINSTEM/CEREBELLUM: Normal. CALVARIUM: Normal. VISUALIZED PARANASAL SINUSES/MASTOIDS:Clear. [place]: Normal flow void. PITUITARY GLAND: Unremarkable. OTHER FINDINGS: None. IMPRESSION: 1. No acute intracranial process. 2. Findings were discussed with Dr. Sol at 9:23 a.m. on 11/01/2022. DATA REPOSITORY:
--- NOTE | 2022-11-01 07:45 | RT.EKG_ITS ---
APPROVED REPORT Exam: Resting ECG Reason for Exam: stroke like symptoms Patient Location: E HR:67 bpm ECG Measurements Heart Rate 67 AXIS WY 137 P 26 QRSd 91 QRS 38 QT 409 T 29 QTc 433 Conclusion Sinus rhythm...normal P axis, V-rate 60- 99
[2022-11-01 07:49] VITALS: BP 149/82; PULSE 72; RESP 16; TEMP 36.6; O2SAT 95
--- NOTE | 2022-11-01 07:53 | W.ED.GENAD ---
Discharge Plan Discharge Details Chief Complaint: AMS/LOC Primary Care Provider: Keisha Magaña ED Provider: Armando Pride Home Meds and New Rx's Prescriptions: No Action atorvastatin 10 mg tablet 10 mg PO QPM Qty: 90 5RF lisinopril 20 mg tablet 20 mg PO DAILY Qty: 90 5RF semaglutide 2 mg/dose (8 mg/3 mL) pen injector 1 mg subcut QWEEK Qty: 9 8RF glipizide 10 mg tablet extended release 24hr 10 mg PO DAILY Qty: 90 5RF fluconazole [Diflucan] 150 mg tablet 150 mg PO Q72H Qty: 30 4RF (DME) FreeStyle Test 1 EACH strip 1 strip Miscellaneous DAILY Rx Instructions: DX:250. (DME) lancets [OneTouch Delica Lancets] 1 EACH misc 1 ea Sub-Q DAILY Rx Instructions: DX:250. diclofenac sodium [Arthritis Pain (diclofenac)] 1 % gel 2 g topical QID Qty: 150 3RF Rx Instructions: apply to wrist fluoxetine [Prozac] 40 mg capsule 40 mg PO DAILY Qty: 90 11RF Denavir 1 % cream 1 applic Topical QID PRN (Reason: herpes) Qty: 5 4RF Januvia 100 mg tablet 100 mg PO DAILY Qty: 90 4RF prochlorperazine maleate 10 mg tablet 10 mg PO TID PRN (Reason: nausea and vomiting) Qty: 50 0RF clonazepam 0.5 mg tablet 0.5 mg PO DIRECTED Qty: 90 5RF Rx Instructions: 1 tab AM and Hs and 1/2 T pm methylphenidate HCl 10 mg tablet 10 mg PO TID MDD 3 Qty: 90 0RF acetaminophen 500 mg tablet 500 mg PO Q6H PRN (Reason: pain) Qty: 60 2RF Medical Decision Making 57-year-old female with a past medical history of high cholesterol, high blood pressure, appendectomy, parathyroidectomy, who presents today for evaluation of strokelike symptoms. Patient states that she slept through the alarm this morning, she woke up when she was getting a phone call at 5:45 AM she noticed that she felt off, additionally she felt that time was moving slowly and felt weird. She drove herself to the emergency department to work her shift, but while here her coworkers noted significant abnormalities and recommended evaluation. She does admit to feeling dizzy and imbalanced, but denies any headache. She denies any vomiting or diarrhea. She states that her speech feels funny as well. No other complaints at this time. No other modifying factors. M demonstrates a well-appearing female who is speech is notably slowed but not slurred. She demonstrates mild left-sided horizontal nystagmus. Gait is slow and statical but not antalgic. Differential is highest for stroke, but dehydration and peripheral vertigo are also on the differential. We will get CTA, and potential MRI. Patient woke up like this, and so last known well is certainly greater than 6 to 12 hours ago. Patient will be signed out to my colleague Dr. Sol for follow-up on labs and imaging. Sign Out Yes HPI General Date/Time Provider Initiated Documentation: 11/01/22 07:50. HPI Narrative: 57-year-old female with a past medical history of high cholesterol, high blood pressure, appendectomy, parathyroidectomy, who presents today for evaluation of strokelike symptoms. Patient states that she slept through the alarm this morning, she woke up when she was getting a phone call at 5:45 AM she noticed that she felt off, additionally she felt that time was moving slowly and felt weird. She drove herself to the emergency department to work her shift, but while here her coworkers noted significant abnormalities and recommended evaluation. She does admit to feeling dizzy and imbalanced, but denies any headache. She denies any vomiting or diarrhea. She states that her speech feels funny as well. No other complaints at this time. No other modifying factors. Related Data Home Medications Medication Instructions Recorded Confirmed blood sugar diagnostic (FreeStyle 03/18/13 09/17/22 Test strips) lancets 33 gauge (OneTouch Delica 03/18/13 09/17/22 Lancets) diclofenac sodium 1 % topical gel 2 g topical QID #150 grams 01/16/21 11/01/22 (Arthritis Pain (diclofenac)) fluoxetine 40 mg capsule (Prozac) 40 mg PO DAILY #90 tab-caps 02/21/22 11/01/22 penciclovir 1 % topical cream 1 applic topical QID PRN herpes #5 03/12/22 11/01/22 (Denavir) grams lisinopril 20 mg tablet 20 mg PO DAILY #90 tabs 03/26/22 11/01/22 acetaminophen 500 mg tablet 500 mg PO Q6H PRN pain #60 tabs 05/22/22 11/01/22 atorvastatin 10 mg tablet 10 mg PO QPM #90 tabs 06/19/22 11/01/22 sitagliptin phosphate 100 mg 100 mg PO DAILY #90 tabs 07/18/22 11/01/22 tablet (Januvia) prochlorperazine maleate 10 mg 10 mg PO TID PRN nausea and 08/28/22 11/01/22 tablet vomiting #50 tab-caps fluconazole 150 mg tablet 150 mg PO Q72H #30 tabs 09/17/22 11/01/22 (Diflucan) glipizide 10 mg tablet, extended 10 mg PO DAILY #90 tabs 09/17/22 11/01/22 release 24 hr semaglutide 2 mg/dose (8 mg/3 mL) 1 mg (0.375 mL) subcut QWEEK #9 mL 09/17/22 11/01/22 subcutaneous pen injector clonazepam 0.5 mg tablet 0.5 mg PO DIRECTED #90 tabs 10/15/22 11/01/22 methylphenidate HCl 10 mg tablet 10 mg PO TID #90 tab-caps 10/15/22 11/01/22 Previous Rx's Medication Instructions Recorded diclofenac sodium 1 % topical gel 2 g topical QID #150 grams 01/16/21 (Arthritis Pain (diclofenac)) fluoxetine 40 mg capsule (Prozac) 40 mg PO DAILY #90 tab-caps 02/21/22 penciclovir 1 % topical cream 1 applic topical QID PRN herpes #5 03/12/22 (Denavir) grams lisinopril 20 mg tablet 20 mg PO DAILY #90 tabs 03/26/22 acetaminophen 500 mg tablet 500 mg PO Q6H PRN pain #60 tabs 05/22/22 atorvastatin 10 mg tablet 10 mg PO QPM #90 tabs 06/19/22 sitagliptin phosphate 100 mg 100 mg PO DAILY #90 tabs 07/18/22 tablet (Januvia) prochlorperazine maleate 10 mg 10 mg PO TID PRN nausea and 08/28/22 tablet vomiting #50 tab-caps fluconazole 150 mg tablet 150 mg PO Q72H #30 tabs 09/17/22 (Diflucan) glipizide 10 mg tablet, extended 10 mg PO DAILY #90 tabs 09/17/22 release 24 hr semaglutide 2 mg/dose (8 mg/3 mL) 1 mg (0.375 mL) subcut QWEEK #9 mL 09/17/22 subcutaneous pen injector clonazepam 0.5 mg tablet 0.5 mg PO DIRECTED #90 tabs 10/15/22 methylphenidate HCl 10 mg tablet 10 mg PO TID #90 tab-caps 10/15/22 Allergies Allergy/AdvReac Type Severity Reaction Status Date / Time sulfamethoxazole Allergy Intermediate SKIN RASH, Verified 11/01/22 07:53 ? airway swelling trimethoprim Allergy Intermediate SKIN RASH Verified 11/01/22 07:53 doxycycline AdvReac Intermediate Itching Verified 11/01/22 07:53 metformin AdvReac Intermediate Diarrhea Verified 11/01/22 07:53 General Stated Complaint: AMS/LOC YOKASTA: 3 Review of Systems All systems reviewed & are unremarkable except as noted in HPI and below PFSH All Active Problems Acute internal derangement of right knee (Acute) Pes anserine bursitis (Acute) MCL sprain of right knee (Acute) History of total right hip replacement (Acute 05/22/22) Palpitation (Acute) Chest pain (Acute) Low back pain (Acute) Osteoarthritis of right hip (Chronic) De Quervain's disease (tenosynovitis) (Acute) Right wrist pain (Acute) Masses of both breasts (Acute) Joint pain (Acute) Premature beats (Acute) Shoulder pain (Acute) Smoker (Acute) Cervical pain (neck) (Acute) BMI 37.0-37.9, adult (Acute) Migraine (Chronic) Diabetes mellitus (Chronic 03/24/13) Depressive disorder (Chronic) Choroidal degeneration (Chronic) OS [facility] CAPILLARY CHOROIDAL NEOVASCULAR MEMBRANE ADHD (attention deficit hyperactivity disorder) (Chronic 09/02/17) Anxiety (Chronic) Medical History Abnormal cervical Papanicolaou smear CRYO Annual physical exam (10/21/17) Chronic pharyngitis 03/07/15 Chronic pharyngitis (03/07/15) Chronic tonsillitis (03/07/15) Chronic tonsillitis (03/07/15) Disorder of parathyroid gland S/P removal DUB (dysfunctional uterine bleeding) (11/01/15) fibroids on US Joint pain ribs Left ureteral stone Low back pain (06/14/14) Lymphadenopathy right lymph node> left Lymphadenopathy Nephrolithiasis (10/10/16) ACUTE WITH PYELONEPHRITIS; DR. ALICEA Premature beats premature beats PVC's Shoulder pain Smoker Therapeutic procedure shockwave therapy; left extracorporeal shockwave therapy Dr. Santiago Vaginitis Surgical History Appendectomy section Cystoscopy 10/08/16 DR. GIL; LEFT URETERAL STONE EXTRACTION H/O section H/O parathyroidectomy History of bilateral ligation of fallopian tubes History of bilateral tubal ligation History of section History of parathyroidectomy Ligation of fallopian tube Parathyroidectomy S/P appendectomy SHOCKWAVE THERAPY (04/10/12) LEFT EXTRACORPOREAL SHOCK WAVE THERAPY (DR. SANTIAGO) Status post appendectomy Tonsillectomy 04/11/15 Family History Mother Essential hypertension Depression Father , age 64 Diabetes Essential hypertension Hyperlipidemia Alcohol abuse Brother No problems noted. Maternal Grandfather Heart disease Lung cancer Paternal Grandfather Prostate cancer Maternal Grandmother Diabetes Essential hypertension Bladder cancer Paternal Grandmother Essential hypertension FAMILY HISTORY Abdominal aortic aneurysm RUPTURED Son Depression Son No problems noted. Daughter Depression Social History Smoking/Tobacco Use Status: Former Tobacco Use tobacco type: cigarettes Quit Date: 11/25/09 Tobacco: How many years used: 25 Second Hand Exposure: Yes Smoking risk assessment performed?: Yes Alcohol Intake: current Alcohol Intake frequency: a few times a month Alcohol type: wine Drug use: Never Substance use type: does not use Caregiver/Support person: No Household members: significant other Housing: house Do you need help understanding health information?: Never current occupation: RN Pets and animals: Yes Pets and animals: cat(s) and dog(s) Sexually active: Yes Do you think of yourself as: straight/heterosexual Current gender identity: female What is your relationship status?: living with partner How often do you talk on the phone with friends or family?: twice per week How often do you get together with friends or relatives?: once per week How often do you attend rastafarian or confucianism services?: decline to answer Do you belong to any clubs or organized social groups?: no Panel score (0-1 are the most socially isolated patients): 2 What type of physical activity do you participate in: walking Frequency: does not exercise Hannah/Pentecostalism: Uatsdin Special hannah needs: No Seatbelt use: always Helmet use: Yes Helmet use: always Drive intox or ride w/intox otr hazmat company driver: No Do you feel safe at home: Yes Do you feel safe in your relationship?: Yes Would you like helpful sources: No Exam Narrative Exam Narrative: 1.Const: Well-nourished, Well-developed, appearing stated age 2.Eyes: PERRL, no conjunctival injection, and symmetrical lids. 3.ENT: Atraumatic external nose and ears. Moist MM. Neck: Symmetric, trachea midline, No thyromegaly. 4.CVS: +S1/S2, No murmurs or gallops. Peripheral pulses 2+ and equal in all extremities. Brisk capillary refill in all extremities. 5.RESP: Unlabored respiratory effort. Clear to auscultation bilaterally. No wheezes rales or rhonchi 6.GI: Soft, Nontender/Nondistended, No hepatosplenomegaly. No guarding or rebound. 7.MSK: Normocephalic/Atraumatic, Extremities w/o deformity or ttp No cyanosis or clubbing, Normal movement of all extremities 8.Skin: Warm, Dry. No rashes or lesions. 9.Neuro: event coordinator II-XII grossly intact. All 6 cardinal planes of vision are fully intact. No evidence of rotatory or vertical nystagmus. Patient does have mild left-sided horizontal nystagmus. Positive head impulse test to the left. The patient demonstrated a normal [id number], good dexterity. There was no evidence of dysdiadochokinesia. Patient was able to ambulate without difficulty But certainly does show a slow movement pattern. No ataxic gait. Sensation was intact bilaterally as well as muscle strength bilaterally for all extremities. Patient was able to verbalize butter cup with no slurring, or miss pronunciation, however her speech is notably slow. She is somewhat confused. 10.Psych: (AAO) x3. Appropriate mood and affect Course Vital Signs Vital signs: Vital Signs Temperature 36.6 C 11/01/22 07:49 Pulse 72 11/01/22 07:49 Respiratory Rate 16 11/01/22 07:49 Blood Pressure 149/82 H 11/01/22 07:49 Pulse Oximetry 95 11/01/22 07:49 Temperature 36.6 C 11/01/22 07:49 Temperature Source Temporal Artery Scan 11/01/22 07:49 Pulse 72 11/01/22 07:49 Respiratory Rate 16 11/01/22 07:49 Respiratory Effort 11/01/22 07:52 Blood Pressure 149/82 H 11/01/22 07:49 Blood Pressure Position Sitting 11/01/22 07:49 Pulse Oximetry 95 11/01/22 07:49 Oxygen Delivery Method Room Air 11/01/22 07:49 Oxygen Flow Rate 0 11/01/22 07:49 Pain Level 0 11/01/22 07:49
[2022-11-01 08:07] LABS: Abs Immature Grans 0.03 10^3/uL (0.0-0.06); Absolute Basophil Count 0.05 10^3/uL (0.0-0.2); Absolute Eosinophil Count 0.17 10^3/uL (0.0-0.7); Absolute Lymphocyte Count 2.05 10^3/uL (1.2-3.4); Absolute Monocyte Count 0.45 10^3/uL (0.1-0.8); Absolute Neutrophil Count 4.37 10^3/uL (1.2-6.7); Basophils % 0.7; Eosinophils % 2.4; HCT 36.3 % (36.0-46.0); Immature Grans % 0.4; Lymphocytes % 28.8; MCH 29.7 pg (27.0-33.0); MCHC 33.1 % (32.0-36.0); MCV 90 fL (80-95); MPV 8.7 fL (8.0-11.0); Monocytes % 6.3; Neutrophils % 61.4; Platelet Count 322 10^3/uL (130-400); RBC 4.04 10^6/uL (3.93-5.22); RDW 13.3 % (11.7-14.6); RDW-SD 43.6 fL; WBC 7.12 10^3/uL (4.4-10.8)
[2022-11-01 08:22] LABS: INR 0.9 (0.9-1.1); PTT Activated 23.4 sec (21.0-27.5); Prothrombin Time 9.3 sec (9.3-11.0)
[2022-11-01 08:25] LABS: ALT 82 U/L (14-59); AST 53 U/L (15-37); Albumin 3.6 g/dL (3.4-5.0); Alkaline Phosphatase 76 U/L (46-116); Anion Gap 6.6 mmol/L (3-11); BUN 20 mg/dL (7-18); Bilirubin, Total 0.4 mg/dL (0.2-1.0); CO2 27.4 mmol/L (21.0-32.0); CREATININE 0.9 mg/dL (0.55-1.02); Calcium 8.2 mg/dL (8.5-10.1); Chloride 102 mmol/L (98-107); ETHANOL BLOOD < 3.0 mg/dL (<10); Glucose 150 mg/dL (74-106); Magnesium 2.2 mg/dL (1.8-2.4); Potassium 4.5 mmol/L (3.5-5.1); Sodium 136 mmol/L (136-145); Total Protein 6.4 g/dL (6.4-8.2)
[2022-11-01] MEDS: Omnipaque 350 MG/ML 100 ML BTL 85 ML IJ (08:43)
[2022-11-01] MEDS: Normal Saline - Diluent 50 ML VIAL IJ (08:43)
[2022-11-01] MEDS: Normal Saline 1,000 ML 1000 ML IV (09:30)
[2022-11-01 09:53] LABS: Bilirubin Negative (Negative); Blood Negative (Negative); Clarity Sl Cloudy (Clear); Glucose Negative (Negative); Ketones Negative (Negative); Leukocyte Esterase Negative (Negative); Nitrite Negative (Negative); Specific Gravity 1.015 (1.005-1.025); Urobilinogen 0.2 EU/dL (Up TO 0.2); pH 6.5 (5-8)
[2022-11-01] MEDS: Meclizine 25 MG TAB PO (09:56)
[2022-11-01] MEDS: Prochlorperazine 10 MG/2 ML VIAL IVP (09:56)
[2022-11-01 10:04] LABS: TSH (W/Ref FT4) 0.43 uIU/mL (0.36-3.74)
[2022-11-01] MEDS: Ketorolac 15 MG/ML VIAL IVP (10:04)
[2022-11-01 10:43] VITALS: RESP 18
--- NOTE | 2022-11-01 11:18 | W.EDPROG ---
Date of service: 11/01/22 Time of Service: 11:18 Medical Decision Making pt's labs, ct/cta, mri all unremarkable, and she is now caox4 and has clear speech, nih of 0 on my exam. She does note pain in her head she states feels like prior migraines for her, will treat with toradol and compazine and reassess. Suspect she could have had a complex migraine pt stable, nih of 0 and feels improved. She is stable for d/c, advised to f/u with pcp, return precautions given Sign Out No Sign Out Sign Out Data: Sign Out Comment: Strokelike symptom strokelike symptoms and slurred speech. Pending imaging work-up. Last updated by Armando Pride DO at 11/01/22 08:02 Discharge Plan Disposition Patient Disposition: Home Condition: Stable Discharge Details Clinical Impression: Alteration in speech Primary Care Provider: Keisha Magaña ED Provider: Jarred Sol Home Meds and New Rx's Prescriptions: Continued atorvastatin 10 mg tablet 10 mg PO QPM Qty: 90 5RF lisinopril 20 mg tablet 20 mg PO DAILY Qty: 90 5RF semaglutide 2 mg/dose (8 mg/3 mL) pen injector 1 mg subcut QWEEK Qty: 9 8RF glipizide 10 mg tablet extended release 24hr 10 mg PO DAILY Qty: 90 5RF fluconazole [Diflucan] 150 mg tablet 150 mg PO Q72H Qty: 30 4RF (DME) FreeStyle Test 1 EACH strip 1 strip Miscellaneous DAILY Rx Instructions: DX:250. (DME) lancets [OneTouch Delica Lancets] 1 EACH misc 1 ea Sub-Q DAILY Rx Instructions: DX:250. diclofenac sodium [Arthritis Pain (diclofenac)] 1 % gel 2 g topical QID Qty: 150 3RF Rx Instructions: apply to wrist fluoxetine [Prozac] 40 mg capsule 40 mg PO DAILY Qty: 90 11RF Denavir 1 % cream 1 applic Topical QID PRN (Reason: herpes) Qty: 5 4RF Januvia 100 mg tablet 100 mg PO DAILY Qty: 90 4RF prochlorperazine maleate 10 mg tablet 10 mg PO TID PRN (Reason: nausea and vomiting) Qty: 50 0RF clonazepam 0.5 mg tablet 0.5 mg PO DIRECTED Qty: 90 5RF Rx Instructions: 1 tab AM and Hs and 1/2 T pm methylphenidate HCl 10 mg tablet 10 mg PO TID MDD 3 Qty: 90 0RF acetaminophen 500 mg tablet 500 mg PO Q6H PRN (Reason: pain) Qty: 60 2RF Discharge Instructions Additional Instructions: Your blood work, cat scan and MRI did not show any concerning findings at this time. This could have been a complex migraine. There was no evidence of stroke on the MRI and your CTA of your neck and brain did not show any significant blockages in the vessels I would recommend following up with your primary care provider as soon as possible if you feel more ill, have weakness, changes in speech or severe worsening pain return to the emergency department
[2022-11-01 11:31] VITALS: BP 140/93; PULSE 69; RESP 16; O2SAT 95
== END 2022-11-01 11:52 | disposition home or self-care (01) ==
PROVIDERS: Student in an Organized Health Care Education/Training Program; Emergency Provider Emergency Medicine; PCP Family Medicine
DX: R47.89 Other speech disturbances (principal); E78.00 Pure hypercholesterolemia, unspecified; Z90.49 Acquired absence of other specified parts of digestive tract
CPT/HCPCS: 36415; 70496; 70498; 80053; 93005; 96361; 96374; 96375; 99285; 70551; 80320; 81003; 83735; 84443; 85025; 85610; 85730; 93010; J0780; J1885; J3490

== ENCOUNTER 2022-12-06 18:13 | Emergency (ER) | payer OTHER, SELFPAY ==
--- NOTE | 2022-12-06 18:14 | ED.GENADUL_ITS ---
Discharge Plan Disposition Patient Disposition: Home Condition: Stable Discharge Details Clinical Impression: Contusion of right hip, Contusion of back, Strain of right knee Primary Care Provider: Keisha Magaña ED Provider: Evelia Ibrahim Home Meds and New Rx's Prescriptions: New lidocaine [Lidoderm] 5 % adhesive patch,medicated 1 patch TP DAILY PRN (Reason: pain) Qty: 15 0RF Rx Instructions: leave on most painful area for up to 12 hrs cyclobenzaprine 10 mg tablet 10 mg PO TID PRNQty: 30 0RF Continued atorvastatin 10 mg tablet 10 mg PO QPM Qty: 90 5RF lisinopril 20 mg tablet 20 mg PO DAILY Qty: 90 5RF semaglutide 2 mg/dose (8 mg/3 mL) pen injector 1 mg subcut QWEEK Qty: 9 8RF glipizide 10 mg tablet extended release 24hr 10 mg PO DAILY Qty: 90 5RF fluconazole [Diflucan] 150 mg tablet 150 mg PO Q72H Qty: 30 4RF (DME) FreeStyle Test 1 EACH strip 1 strip Miscellaneous DAILY Rx Instructions: DX:250. (DME) lancets [OneTouch Delica Lancets] 1 EACH misc 1 ea Sub-Q DAILY Rx Instructions: DX:250. diclofenac sodium [Arthritis Pain (diclofenac)] 1 % gel 2 g topical QID Qty: 150 3RF Rx Instructions: apply to wrist fluoxetine [Prozac] 40 mg capsule 40 mg PO DAILY Qty: 90 11RF Denavir 1 % cream 1 applic Topical QID PRN (Reason: herpes) Qty: 5 4RF Januvia 100 mg tablet 100 mg PO DAILY Qty: 90 4RF prochlorperazine maleate 10 mg tablet 10 mg PO TID PRN (Reason: nausea and vomiting) Qty: 50 0RF clonazepam 0.5 mg tablet 0.5 mg PO DIRECTED Qty: 90 5RF Rx Instructions: 1 tab AM and Hs and 1/2 T pm methylphenidate HCl 10 mg tablet 10 mg PO TID MDD 3 Qty: 90 0RF cyclobenzaprine 10 mg tablet 10 mg PO Q8H PRN (Reason: muscle spasm) Qty: 30 0RF acetaminophen 500 mg tablet 500 mg PO Q6H PRN (Reason: pain) Qty: 60 2RF Discharge Instructions Instructions: Knee Sprain (ED), Contusion in Adults (ED), Hip Contusion (ED) Additional Instructions: Your xrays today show no evidence of fracture. Apply ice to the affected area several times daily for 20 minutes at a time. Alternate tylenol and motrin as needed and directed for pain. Prescriptions for Flexeril and Lidoderm patches were sent electronically to your pharmacy. Follow-up with your primary care doctor in 1 week. Return to the emergency department with any worsening or new concerning symptoms. Discharge Data Discharge Physician: Evelia Ibrahim Medical Decision Making 57yo F w/ h/o total R hip arthroplasty presents to the ED w/ a c/o right-sided lower back and right hip pain after mechanical fall when she fell onto her right hip while walking the dog today. BP high at 177/103. We will recheck. Patient is requesting a Toradol injection. Informed that as she had 600 mg of ibuprofen 2 to 3 hours ago, would recommend a decreased dose of Toradol IM injection. She is also requesting a dose of Flexeril which has helped with muscle spasm in the past. Her blood pressure is hypertensive so we will recheck as it may be a factor of pain. Her back is normal to inspection without midline lumbar spine tenderness. She has pain with range of motion in her right hip and right knee. There is no obvious orthopedic deformity. Will refer for right hip and right knee x-rays and give a dose of Toradol IM, Flexeril p.o. and Lidoderm patch. X-rays reviewed and negative for acute findings. Patient reassessed and her pain is much improved and she feels comfortable going home. She was given Flexeril bottle to go and prescriptions for Flexeril and Lidoderm patches sent electronically to her pharmacy. Patient's blood pressure remains high at 180/113. Patient states she takes her lisinopril in the evenings and has not yet taken it. She denies any headache, chest pain or strokelike symptoms and states she will take her blood pressure medication at home and recheck her BP. She is advised to call her primary care's office tomorrow to schedule follow-up appointment for reevaluation within the next week. Usual and customary return precautions given prior to discharge. Medical Records Medical records reviewed: Yes I reviewed the patient's medical records. Imaging Data Radiologic Study: Radiologist's impression: XR Right Hip Exam date and time: 12/06/2022 6:49 PM Age: 57 years old Clinical indication: Injury or trauma; Other: S/P fall onto back; Prior surgery; Surgery date: 6+ months; Surgery type: Right hip TECHNIQUE: Imaging protocol: Radiologic exam of the Right hip. Views: 2 or 3 views hip with pelvis when performed. COMPARISON: CR XR HIP RT COMPLETE AP PELVIS 06/04/2022 10:43 AM FINDINGS: Bones/joints: No pelvic fracture or diastasis. Right hip total arthroplasty is unremarkable in appearance. No dislocation or periprosthetic bone injury evident. Lower lumbar spine degenerative disease. Mild degeneration of the left hip with narrowing. Soft tissues: Soft tissues of the pelvic region are unremarkable. IMPRESSION: 1. No acute fracture or diastasis. 2. Right hip prosthesis unremarkable. 3. Mild left hip degenerative arthritis. 4. Lumbosacral spine degeneration. XR Right Knee Exam date and time: 12/06/2022 6:53 PM Age: 57 years old Clinical indication: Injury or trauma; Other: Twisted R knee, R/O FX TECHNIQUE: Imaging protocol: Radiologic exam of the Right knee. Views: 3 views. COMPARISON: MR LOWER JOINT RT WO 09/10/2022 11:57 AM FINDINGS: Bones/joints: Mild medial joint and patellofemoral joint degenerative features. No fracture. No malalignment. No articular surface erosions. No focal bone lesions. No briana joint effusion. Soft tissues: Intact soft tissues. No briana swelling. No foreign body. IMPRESSION: 1. No acute features. 2. Degenerative joint change. HPI General Mode of arrival: ambulatory . Date/Time Provider Initiated Documentation: 12/06/22 18:14 . Limitations to Documentation: no limitations . Information obtained by: patient . HPI Narrative: Pt is a 57yo F w/ a h/o total R hip arthroplasty in April 2022 who presents right-sided lower back and right hip pain after mechanical fall this morning while walking a dog. Patient states she was walking her mom's large dog this morning when the dog ran and the leash pulled and she fell onto her right hip. Patient states as the day has gone on she has had increasing pain in her right lower back and right hip. She is also complaining of pain in her right knee and she is unsure if she twisted her knee or fell onto it. She states she took ibuprofen this morning as well as 2 to 3 hours ago. Patient denies any head injury, chest pain, neck pain, difficulty breathing, abdominal pain, upper extremity injury or left leg injury or pain. Related Data Home Medications Medication Instructions Recorded Confirmed blood sugar diagnostic (FreeStyle 03/18/13 09/17/22 Test strips) lancets 33 gauge (OneTouch Delica 03/18/13 09/17/22 Lancets) diclofenac sodium 1 % topical gel 2 g topical QID #150 grams 01/16/21 11/01/22 (Arthritis Pain (diclofenac)) fluoxetine 40 mg capsule (Prozac) 40 mg PO DAILY #90 tab-caps 02/21/22 11/01/22 penciclovir 1 % topical cream 1 applic topical QID PRN herpes #5 03/12/22 11/01/22 (Denavir) grams lisinopril 20 mg tablet 20 mg PO DAILY #90 tabs 03/26/22 11/01/22 acetaminophen 500 mg tablet 500 mg PO Q6H PRN pain #60 tabs 05/22/22 11/01/22 atorvastatin 10 mg tablet 10 mg PO QPM #90 tabs 06/19/22 11/01/22 sitagliptin phosphate 100 mg 100 mg PO DAILY #90 tabs 07/18/22 11/01/22 tablet (Januvia) prochlorperazine maleate 10 mg 10 mg PO TID PRN nausea and 08/28/22 11/01/22 tablet vomiting #50 tab-caps fluconazole 150 mg tablet 150 mg PO Q72H #30 tabs 09/17/22 11/01/22 (Diflucan) glipizide 10 mg tablet, extended 10 mg PO DAILY #90 tabs 09/17/22 11/01/22 release 24 hr semaglutide 2 mg/dose (8 mg/3 mL) 1 mg (0.375 mL) subcut QWEEK #9 mL 09/17/22 11/01/22 subcutaneous pen injector clonazepam 0.5 mg tablet 0.5 mg PO DIRECTED #90 tabs 10/15/22 11/01/22 methylphenidate HCl 10 mg tablet 10 mg PO TID #90 tab-caps 10/15/22 11/01/22 cyclobenzaprine 10 mg tablet 10 mg PO Q8H PRN muscle spasm #30 12/06/22 tabs cyclobenzaprine 10 mg tablet 10 mg PO TID PRN #30 tabs 12/06/22 lidocaine 5 % topical patch 1 patch topical DAILY PRN pain #15 12/06/22 (Lidoderm) ea Previous Rx's Medication Instructions Recorded diclofenac sodium 1 % topical gel 2 g topical QID #150 grams 01/16/21 (Arthritis Pain (diclofenac)) fluoxetine 40 mg capsule (Prozac) 40 mg PO DAILY #90 tab-caps 02/21/22 penciclovir 1 % topical cream 1 applic topical QID PRN herpes #5 03/12/22 (Denavir) grams lisinopril 20 mg tablet 20 mg PO DAILY #90 tabs 03/26/22 acetaminophen 500 mg tablet 500 mg PO Q6H PRN pain #60 tabs 05/22/22 atorvastatin 10 mg tablet 10 mg PO QPM #90 tabs 06/19/22 sitagliptin phosphate 100 mg 100 mg PO DAILY #90 tabs 07/18/22 tablet (Januvia) prochlorperazine maleate 10 mg 10 mg PO TID PRN nausea and 08/28/22 tablet vomiting #50 tab-caps fluconazole 150 mg tablet 150 mg PO Q72H #30 tabs 09/17/22 (Diflucan) glipizide 10 mg tablet, extended 10 mg PO DAILY #90 tabs 09/17/22 release 24 hr semaglutide 2 mg/dose (8 mg/3 mL) 1 mg (0.375 mL) subcut QWEEK #9 mL 09/17/22 subcutaneous pen injector clonazepam 0.5 mg tablet 0.5 mg PO DIRECTED #90 tabs 10/15/22 methylphenidate HCl 10 mg tablet 10 mg PO TID #90 tab-caps 10/15/22 cyclobenzaprine 10 mg tablet 10 mg PO Q8H PRN muscle spasm #30 12/06/22 tabs cyclobenzaprine 10 mg tablet 10 mg PO TID PRN #30 tabs 12/06/22 lidocaine 5 % topical patch 1 patch topical DAILY PRN pain #15 12/06/22 (Lidoderm) ea Allergies Allergy/AdvReac Type Severity Reaction Status Date / Time sulfamethoxazole Allergy Intermediate SKIN RASH, Verified 11/01/22 07:53 ? airway swelling trimethoprim Allergy Intermediate SKIN RASH Verified 11/01/22 07:53 doxycycline AdvReac Intermediate Itching Verified 11/01/22 07:53 metformin AdvReac Intermediate Diarrhea Verified 11/01/22 07:53 General Stated Complaint: Nk/Back Pain YOKASTA: 3 Review of Systems All systems reviewed & are unremarkable except as noted in HPI and below Constitutional Constitutional: Reports as per HPI, Denies chills and Denies fever(s) Eyes Eyes: Denies blurry vision ENT Ears, Nose, Mouth, and Throat: Denies dizziness, Denies sore throat and Denies throat swelling Cardiovascular Cardiovascular: Denies chest pain and Denies dyspnea Respiratory Respiratory: Denies cough and Denies dyspnea Gastrointestinal Gastrointestinal: Denies abdominal pain, Denies diarrhea and Denies vomiting Genitourinary Genitourinary: Denies hematuria and Denies dysuria Musculoskeletal Musculoskeletal: Reports back pain and Denies numbness Comments: R hip and knee pain Integumentary/Breasts Skin/Breast: Denies lesions and Denies rash Neurologic Neurologic: Denies dizziness, Denies localized weakness and Denies numbness Allergic/Immunologic Allergic/Immunologic: Denies throat swelling PFSH All Active Problems (Updated 12/06/22 @ 19:27 by Evelia Ibrahim DO) Contusion of right hip (Acute) Contusion of back (Acute) Strain of right knee (Acute) Acute internal derangement of right knee (Acute) Pes anserine bursitis (Acute) MCL sprain of right knee (Acute) History of total right hip replacement (Acute 05/22/22) Palpitation (Acute) Chest pain (Acute) Low back pain (Acute) Osteoarthritis of right hip (Chronic) De Quervain's disease (tenosynovitis) (Acute) Right wrist pain (Acute) Masses of both breasts (Acute) Joint pain (Acute) Premature beats (Acute) Shoulder pain (Acute) Smoker (Acute) Cervical pain (neck) (Acute) BMI 37.0-37.9, adult (Acute) Migraine (Chronic) Diabetes mellitus (Chronic 03/24/13) Depressive disorder (Chronic) Choroidal degeneration (Chronic) OS [facility] CAPILLARY CHOROIDAL NEOVASCULAR MEMBRANE ADHD (attention deficit hyperactivity disorder) (Chronic 09/02/17) Anxiety (Chronic) Medical History Abnormal cervical Papanicolaou smear CRYO Annual physical exam (10/21/17) Chronic pharyngitis 03/07/15 Chronic pharyngitis (03/07/15) Chronic tonsillitis (03/07/15) Chronic tonsillitis (03/07/15) Disorder of parathyroid gland S/P removal DUB (dysfunctional uterine bleeding) (11/01/15) fibroids on US Joint pain ribs Left ureteral stone Low back pain (06/14/14) Lymphadenopathy right lymph node> left Lymphadenopathy Nephrolithiasis (10/10/16) ACUTE WITH PYELONEPHRITIS; DR. ALICEA Premature beats premature beats PVC's Shoulder pain Smoker Therapeutic procedure shockwave therapy; left extracorporeal shockwave therapy Dr. Santiago Vaginitis Surgical History Appendectomy section Cystoscopy 10/08/16 DR. GIL; LEFT URETERAL STONE EXTRACTION H/O section H/O parathyroidectomy History of bilateral ligation of fallopian tubes History of bilateral tubal ligation History of section History of parathyroidectomy Ligation of fallopian tube Parathyroidectomy S/P appendectomy SHOCKWAVE THERAPY (04/10/12) LEFT EXTRACORPOREAL SHOCK WAVE THERAPY (DR. SANTIAGO) Status post appendectomy Tonsillectomy 04/11/15 Family History Mother Essential hypertension Depression Father , age 64 Diabetes Essential hypertension Hyperlipidemia Alcohol abuse Brother No problems noted. Maternal Grandfather Heart disease Lung cancer Paternal Grandfather Prostate cancer Maternal Grandmother Diabetes Essential hypertension Bladder cancer Paternal Grandmother Essential hypertension FAMILY HISTORY Abdominal aortic aneurysm RUPTURED Son Depression Son No problems noted. Daughter Depression Social History Smoking/Tobacco Use Status: Former Tobacco Use tobacco type: cigarettes Quit Date: 11/25/09 Tobacco: How many years used: 25 Second Hand Exposure: Yes Smoking risk assessment performed?: Yes Alcohol Intake: current Alcohol Intake frequency: a few times a month Alcohol type: wine Drug use: Never Substance use type: does not use Caregiver/Support person: No Household members: significant other Housing: house Do you need help understanding health information?: Never current occupation: RN Pets and animals: Yes Pets and animals: cat(s) and dog(s) Sexually active: Yes Do you think of yourself as: straight/heterosexual Current gender identity: female What is your relationship status?: living with partner How often do you talk on the phone with friends or family?: twice per week How often do you get together with friends or relatives?: once per week How often do you attend druze or nondenominational services?: decline to answer Do you belong to any clubs or organized social groups?: no Panel score (0-1 are the most socially isolated patients): 2 What type of physical activity do you participate in: walking Frequency: does not exercise Hannah/Baptism: Bahai Special hannah needs: No Seatbelt use: always Helmet use: Yes Helmet use: always Drive intox or ride w/intox furniture mover driver: No Do you feel safe at home: Yes Do you feel safe in your relationship?: Yes Would you like helpful sources: No Exam Const General: cooperative and uncomfortable Orientation: alert, awake and oriented x3 HENMT Head: normal to inspection Face and sinus: normal facial exam Eyes General: appearance normal, both eyes and all related structures Pupils: PERRL EOM: EOM intact bilaterally Neck Neck: normal visual inspection and No submandibular swelling Lymphatic: no lymphadenopathy noted Chest Chest: normal inspection of the chest and no tenderness Resp Effort & Inspection: normal respiratory effort and able to speak in complete sentences Auscultation: clear to auscultation bilaterally Cardio Rate: regular rate Rhythm: regular rhythm GI Inspection: normal to inspection Palpation: soft, not firm, not rigid and nontender Auscultation: normal bowel sounds Back/Spine/Pelvis Thoracic/Lumbar Spine: thoracic and lumbar spine normal to inspection and No lumbar spinal tenderness Back/spine/pelvis image: 1. Localized area of tenderness to right lower back. No edema, ecchymoses, erythema, rash or lesions. Skin General skin exam: no rashes or lesions noted Neuro General: patient alert, patient awake and patient oriented x3 Cognition: normal cognition Speech: speech normal Motor: muscle tone normal throughout Sensory Exam: no sensory deficits noted Extrem General: normal to inspection Other: Right hip incision site healing well without signs of new trauma or cellulitis. Pain in right hip with range of motion. There is tenderness to palpation of the right medial knee with pain with valgus stress. No obvious deformity to right hip, thigh or right knee. Psych Appearance: grossly normal Mental Status: mental status grossly normal Speech and Movement: speech and movement normal Affect: normal affect
[2022-12-06 18:20] VITALS: BP 177/103; PULSE 104; RESP 16; O2SAT 98
--- NOTE | 2022-12-06 18:30 | DI.RAD_ITS ---
Exam(s) XR HIP RT COMPLETE AP PELVIS EXAM: XR HIP RT COMPLETE AP PELVIS CLINICAL HISTORY: s/p fall onto back/R hip, r/o. TECHNIQUE: 2D digital imaging was performed of the right hip. Three images were obtained. AP pelvis and lateral right hip views were obtained. COMPARISON: CR XR HIP RT COMPLETE AP PELVIS from 06/04/2022 FINDINGS: BONES: No acute fracture is present. No bony destructive lesion is seen. JOINTS: No dislocation present. The patient has a right total hip replacement which appears intact. There are mild degenerative changes of the left hip with joint space narrowing. Mild degenerative ch anges are seen in the lower lumbar spine. SOFT TISSUE: Normal. IMPRESSION: No acute abnormality. DATA REPOSITORY: RADIATION DOSE DELIVERED:
--- NOTE | 2022-12-06 18:30 | DI.RAD_ITS ---
Exam(s) XR KNEE RT 3V AP,LAT,BRETT EXAM: XR KNEE RT 3V AP,LAT,BRETT CLINICAL HISTORY: twisted R knee, r/o fx. TECHNIQUE: 2D digital imaging was performed of the right knee. Four views obtained. Merchant, AP, la teral and PA tunnel views were obtained. COMPARISON: CR XR KNEE RT 3V AP,LAT,BRETT from 08/20/2022 FINDINGS: BONES: No acute fracture is present. No bony destructive lesion is seen. JOINTS: The knee is normally aligned. No joint effusion is seen. Mild degenerative changes are seen i n the knee. SOFT TISSUE: Normal. IMPRESSION: No acute abnormality. DATA REPOSITORY: RADIATION DOSE DELIVERED:
[2022-12-06] MEDS: Cyclobenzaprine 10 MG TAB PO (18:40)
[2022-12-06] MEDS: Ketorolac 30 MG/ML VIAL IM (18:40)
[2022-12-06] MEDS: Lidocaine 5% Patch 1 PATCH TP (18:41)
--- NOTE | 2022-12-06 19:08 | DI.VRAD_ITS ---
PROCEDURE INFORMATION: Exam: XR Right Knee Exam date and time: 12/06/2022 6:53 PM Age: 57 years old Clinical indication: Injury or trauma; Other: Twisted R knee, R/O FX TECHNIQUE: Imaging protocol: Radiologic exam of the Right knee. Views: 3 views. COMPARISON: MR LOWER JOINT RT WO 09/10/2022 11:57 AM FINDINGS: Bones/joints: Mild medial joint and patellofemoral joint degenerative features. No fracture. No malalignment. No articular surface erosions. No focal bone lesions. No briana joint effusion. Soft tissues: Intact soft tissues. No briana swelling. No foreign body. IMPRESSION: 1. No acute features. 2. Degenerative joint change. Dictated and Authenticated by: Yo Reinoso MD. Ordering:SEJAL Altamirano MD
--- NOTE | 2022-12-06 19:10 | DI.VRAD_ITS ---
PROCEDURE INFORMATION: Exam: XR Right Hip Exam date and time: 12/06/2022 6:49 PM Age: 57 years old Clinical indication: Injury or trauma; Other: S/P fall onto back; Prior surgery; Surgery date: 6+ months; Surgery type: Right hip TECHNIQUE: Imaging protocol: Radiologic exam of the Right hip. Views: 2 or 3 views hip with pelvis when performed. COMPARISON: CR XR HIP RT COMPLETE AP PELVIS 06/04/2022 10:43 AM FINDINGS: Bones/joints: No pelvic fracture or diastasis. Right hip total arthroplasty is unremarkable in appearance. No dislocation or periprosthetic bone injury evident. Lower lumbar spine degenerative disease. Mild degeneration of the left hip with narrowing. Soft tissues: Soft tissues of the pelvic region are unremarkable. IMPRESSION: 1. No acute fracture or diastasis. 2. Right hip prosthesis unremarkable. 3. Mild left hip degenerative arthritis. 4. Lumbosacral spine degeneration. Dictated and Authenticated by: Yo Reinoso MD. Ordering:SEJAL Altamirano MD
--- NOTE | 2022-12-06 19:20 | NUR.NOTE ---
BP 170/100. Physician notified at this time and ok to D/C. Pt rates pain /10. Nursing Note:
[2022-12-06] MEDS: Cyclobenzaprine 10 MG TAB, 3 TABS/BTL PO (19:21)
[2022-12-06 19:29] VITALS: BP 170/100
== END 2022-12-06 19:29 | disposition home or self-care (01) ==
PROVIDERS: Emergency Provider Physician Assistant; PCP Family Medicine
DX: S70.01XA Contusion of right hip, initial encounter (principal); S30.0XXA Contusion of lower back and pelvis, initial encounter; S86.911A Strain of unspecified muscle(s) and tendon(s) at lower leg level, right leg, initial encounter; Z96.641 Presence of right artificial hip joint; W19.XXXA Unspecified fall, initial encounter; Y93.01 Activity, walking, marching and hiking
CPT/HCPCS: 73562; 96372; 99284; 73502; J1885

== ENCOUNTER 2023-01-06 10:01 | Outpatient (REF) | payer OTHER, SELFPAY ==
[2023-01-06 10:42] LABS: COMMENT (LAB VIEW ONLY) 18.41 mg/dL; Microalb ug/mg Crea 16.8 ug/mg Cr
[2023-01-06 10:45] LABS: ALT 28 U/L (14-59); AST 19 U/L (15-37); Albumin 4.5 g/dL (3.4-5.0); Alkaline Phosphatase 97 U/L (46-116); Anion Gap 9.2 mmol/L (3-11); BUN 17 mg/dL (7-18); Bilirubin, Total 0.8 mg/dL (0.2-1.0); CO2 28.8 mmol/L (21.0-32.0); CREATININE 0.9 mg/dL (0.55-1.02); Calcium 9.3 mg/dL (8.5-10.1); Chloride 98 mmol/L (98-107); Glucose 127 mg/dL (74-106); Hemoglobin A1C 6.2 % (<5.7); Sodium 136 mmol/L (136-145); Total Protein 7.7 g/dL (6.4-8.2)
== END 2023-01-06 10:02 | disposition home or self-care (01) ==
LOC: LBN 10:01
PROVIDERS: PCP Family Medicine; Visit Provider Family Medicine
DX: E11.9 Type 2 diabetes mellitus without complications (principal)
CPT/HCPCS: 80053; 82043; 82570; 83036

== ENCOUNTER 2023-06-20 11:59 | Outpatient (REF) | payer OTHER, SELFPAY ==
[2023-06-25 04:13] LABS: Methylphenidate Negative ng/mL (Cutoff: 10); Ritalinic Acid 911 ng/mL (Cutoff: 50)
== END 2023-06-20 12:00 | disposition home or self-care (01) ==
LOC: LBN 11:59
PROVIDERS: PCP Family Medicine; Visit Provider Family Medicine
DX: F90.9 Attention-deficit hyperactivity disorder, unspecified type (principal)
CPT/HCPCS: 80360

== ENCOUNTER 2024-04-30 16:35 | Outpatient (REF) | payer OTHER, SELFPAY ==
[2024-04-30 21:28] LABS: COMMENT (LAB VIEW ONLY) 48.53 mg/dL; Microalb ug/mg Crea 6.6 ug/mg Cr
== END 2024-04-30 16:36 | disposition home or self-care (01) ==
LOC: LBN 16:35
PROVIDERS: PCP Family Medicine; Visit Provider Family Medicine
DX: E11.9 Type 2 diabetes mellitus without complications (principal)
CPT/HCPCS: 82043; 82570

== ENCOUNTER 2024-11-03 10:26 | Outpatient (CLI) | payer OTHER, SELFPAY ==
[2024-11-03 08:53] LABS: Hemoglobin A1C 6.4 % (<5.7)
[2024-11-03 09:08] LABS: ALT 29 U/L (14-59); AST 21 U/L (15-37); Alkaline Phosphatase 94 U/L (46-116); Anion Gap 11.3 mmol/L (3-11); BUN 9 mg/dL (7-18); Bilirubin, Total 0.62 mg/dL (0.2-1.0); CO2 25.7 mmol/L (21.0-32.0); CREATININE 0.9 mg/dL (0.55-1.02); Calculated LDL 112 mg/dL (<100); Chloride 102 mmol/L (98-107); Cholesterol 205 mg/dL (<200); Estimated GFR 74.57 (mL/min/1.73m2); Glucose 135 mg/dL (74-106); HDL Cholesterol 74 mg/dL (40-60); Potassium 3.7 mmol/L (3.5-5.1); Sodium 139 mmol/L (136-145); Total Protein 7.3 g/dL (6.4-8.2); Triglyceride 96 mg/dL (<150)
== END 2024-11-03 10:27 | disposition home or self-care (01) ==
LOC: LBO 10:26
PROVIDERS: PCP Family Medicine; Visit Provider Family Medicine
DX: I10 Essential (primary) hypertension (principal); Z00.00 Encounter for general adult medical examination without abnormal findings; E11.9 Type 2 diabetes mellitus without complications
CPT/HCPCS: 36415; 80053; 80061; 83036

== ENCOUNTER 2024-11-12 15:14 | Outpatient (REF) | payer OTHER, SELFPAY ==
--- NOTE | 2024-11-12 11:30 | PAPFT_PTH ---
PATIENT: Juani Islas LOC: [facility] U#:[id number] AGE/SX: 59/F ROOM: RE11/12/[address]: Keisha Magaña MD, DC : 1965 BED: DIS: 11/12/2024 SPEC #: [id number] RECD: 11/13/24 12:42 STATUS: AMOL REQ #: [id number] DESI: 11/12/24 11:[address]: Keisha Magaña DEPT: [facility] Cytology RECD BY: Debra Kwan Tissues: 1 - CX/ENDOCX FOR PAP SMEARS Procedures: PAP THIN PREP/UVM Screening HPV DNA PROBE Comments: [id number] (HPV 16 & 18/45)
== END 2024-11-12 15:15 | disposition home or self-care (01) ==
LOC: LBN 15:14
PROVIDERS: PCP Family Medicine; Visit Provider Family Medicine
DX: F41.9 Anxiety disorder, unspecified (principal); G62.9 Polyneuropathy, unspecified; E03.9 Hypothyroidism, unspecified; F32.A Depression, unspecified; E11.9 Type 2 diabetes mellitus without complications
CPT/HCPCS: 88142; 87624

== ENCOUNTER 2024-12-19 18:12 | Emergency (ER) | payer OTHER, SELFPAY ==
[2024-12-19] VITALS (24 sets, daily range): BP systolic 98–143; BP diastolic 44–83; PULSE 80–104; RESP 7–28; TEMP 36.3–36.7; O2SAT 91–99
--- NOTE | 2024-12-19 18:15 | RT.EKG_ITS ---
APPROVED REPORT Exam: Resting ECG Reason for Exam: SOB Patient Location: E HR:92 bpm ECG Measurements Heart Rate 92 AXIS UT 136 P 65 QRSd 89 QRS 57 QT 368 T 41 QTc 456 Conclusion Sinus rhythm 92 normal axis no stemi
--- NOTE | 2024-12-19 18:33 | W.ED.GENAD ---
Discharge Plan Disposition Patient Disposition: Home Discharge Details Clinical Impression: Cough, Viral respiratory illness Primary Care Provider: Keisha Magaña ED Provider: Kiya Bernal Home Meds and New Rx's Prescriptions: New benzonatate 100 mg capsule 100 mg PO TID PRNQty: 10 0RF Continued tirzepatide 12.5 mg/0.5 mL pen injector 12.5 mg subcut QWEEK Qty: 8 4RF fluoxetine 20 mg capsule 20 mg PO DAILY Qty: 90 11RF valproic acid 250 mg capsule 250 mg PO BID Qty: 60 4RF (DME) FreeStyle Test 1 EACH strip 1 strip Miscellaneous DAILY Rx Instructions: DX:250. (DME) lancets [OneTouch Delica Lancets] 1 EACH misc 1 ea Sub-Q DAILY Rx Instructions: DX:250. diclofenac sodium [Arthritis Pain (diclofenac)] 1 % gel 2 g topical QID Qty: 150 3RF Rx Instructions: apply to wrist penciclovir [Denavir] 1 % cream 1 applic Topical QID PRN (Reason: herpes) Qty: 5 4RF cyclobenzaprine 10 mg tablet 10 mg PO TID PRN (Reason: muscle spasm) Qty: 10 0RF glipizide 10 mg tablet extended release 24hr 10 mg PO DAILY Qty: 90 5RF lisinopril 20 mg tablet 20 mg PO DAILY Qty: 90 5RF prochlorperazine maleate 10 mg tablet 10 mg PO TID PRN (Reason: nausea and vomiting) Qty: 50 0RF Januvia 100 mg tablet 100 mg PO DAILY Qty: 90 4RF lidocaine [Lidoderm] 5 % adhesive patch,medicated 1 patch TP DAILY PRN (Reason: pain) Qty: 30 2RF Rx Instructions: leave on most painful area for up to 12 hrs atorvastatin 20 mg tablet 20 mg PO QPM Qty: 90 5RF clonazepam 0.5 mg tablet 0.5 mg PO BID Qty: 60 5RF methylphenidate HCl 10 mg tablet 10 mg PO BID MDD 3 Qty: 60 0RF acetaminophen 500 mg tablet 500 mg PO Q6H PRN (Reason: pain) Qty: 60 2RF Discharge Instructions Additional Instructions: Please call [facility] first thing Saturday morning to schedule follow-up appointment. Your chest x-ray was negative. All labs were unremarkable. COVID/flu/RSV was negative. Your symptoms today are most consistent with a viral illness. Please stay well hydrated, drinking plenty of fluids throughout the day. You may use ibuprofen 600 mg every 8 hours and tylenol 650 mg every 8 hours as needed for fever /chills or body aches. Get plenty of rest. Practice good handwashing and wear a mask in public if you are coughing to avoid spreading illness to others. I have prescribed you Roger Caballero. Use the albuterol inhaler 2 puffs every 4-6 hours as needed for cough/wheeze. May continue to use Vicks VapoRub as needed. Robitussin DM or Mucinex DM may also be helpful. Return to emergency care if you develop difficulty breathing, chest pains, worsening of cough or fever after initial improvement, or if you are very worried and need to be rechecked again immediately. Referrals: Keisha Magaña MD, [place] [Primary Care Provider] - HPI General Date/Time Provider Initiated Documentation: 12/19/24 18:17. HPI Narrative: Juani is a 59year old female who presents to the emergency department today for evaluation of cough, wheeze, and shortness of breath. She reports that she started with viral URI symptoms 4 days ago, including chills, congestion, headache, cough, low energy, and decreased appetite. She admits to decreased p.o. intake. Wheezing has been increasing over the last couple of days, worsened today. Is aggravated by exertion. She denies recorded fevers, chest pain, vomiting, change in bowel or bladder function, abdominal pain. He did have recent ill contacts with similar viral symptoms. Denies history of asthma or wheezing with illness. Past medical history is significant for diabetes, she takes oral medications for this. Former smoker. No history of malignancy, recent surgery/immobility, calf redness/swelling, history of blood clot, hormone use. Physical exam remarkable for tight wheezes in all lung dennis. Frequent dry cough. Tacky mucous membranes. Normal heart sounds, tachycardia noted with heart rate of 101. O2 sat 91-92% on room air. No calf swelling/redness/tenderness or pedal edema. D/dx includes but is not limited to: CHF, pneumonia, viral illness, dehydration, electrolyte imbalance I independently interpreted the following tests: EKG reassuring, normal sinus rhythm with rate 92. No changes consistent with acute ischemia. Normal intervals. CBC, CMP, magnesium, VBG, BNP reassuring. Troponin <4. D-dime negative. COVID/flu/RSV negative. No obvious infiltrate on CXR; this was confirmed by radiologist. While in the emergency department,Juani received DuoNebs with good improvement of symptoms, she is now able to speak in complete sentences and is able to sit back on stretcher comfortably. She also received Tessalon Perles with improvement of cough. She was able to drink soda while in the ED. Overall workup today reassuring. History and presentation most consistent with viral illness; no evidence of PNA at this time. Will provide albuterol inhaler and tessalon perles for home use. Reviewed discharge instructions with patient, including symptomatic management, recommendation to f/u with PCP, and red flags indicating need for return to emergency care Related Data Home Medications ?Medication ?Instructions ?Recorded ?Confirmed blood sugar diagnostic (FreeStyle 03/18/13 12/19/24 Test strips) lancets 33 gauge (OneTouch Delica 03/18/13 12/19/24 Lancets) diclofenac sodium 1 % topical gel 2 g topical QID #150 grams 01/16/21 12/19/24 (Arthritis Pain (diclofenac)) acetaminophen 500 mg tablet 500 mg PO Q6H PRN pain #60 tabs 05/22/22 12/19/24 penciclovir 1 % topical cream 1 applic topical QID PRN herpes #5 12/19/23 12/19/24 (Denavir) grams cyclobenzaprine 10 mg tablet 10 mg PO TID PRN muscle spasm #10 04/27/24 12/19/24 tabs glipizide 10 mg tablet, extended 10 mg PO DAILY #90 tabs 05/04/24 12/19/24 release 24 hr lisinopril 20 mg tablet 20 mg PO DAILY #90 tabs 05/04/24 12/19/24 prochlorperazine maleate 10 mg 10 mg PO TID PRN nausea and 07/16/24 12/19/24 tablet vomiting #50 tab-caps sitagliptin phosphate 100 mg 100 mg PO DAILY #90 tabs 08/24/24 12/19/24 tablet (Januvia) lidocaine 5 % topical patch 1 patch topical DAILY PRN pain #30 09/01/24 12/19/24 (Lidoderm) ea atorvastatin 20 mg tablet 20 mg PO QPM #90 tabs 11/03/24 12/19/24 clonazepam 0.5 mg tablet 0.5 mg PO BID #60 tabs 11/09/24 12/19/24 fluoxetine 20 mg capsule 20 mg PO DAILY #90 tab-caps 11/12/24 12/19/24 tirzepatide 12.5 mg/0.5 mL 12.5 mg (0.5 mL) subcut QWEEK #8 mL 11/12/24 12/19/24 subcutaneous pen injector valproic acid 250 mg capsule 250 mg PO BID #60 caps 11/12/24 12/19/24 methylphenidate HCl 10 mg tablet 10 mg PO BID #60 tab-caps 12/10/24 12/19/24 benzonatate 100 mg capsule 100 mg PO TID PRN #10 caps 12/19/24 Previous Rx's ?Medication ?Instructions ?Recorded diclofenac sodium 1 % topical gel 2 g topical QID #150 grams 01/16/21 (Arthritis Pain (diclofenac)) acetaminophen 500 mg tablet 500 mg PO Q6H PRN pain #60 tabs 05/22/22 penciclovir 1 % topical cream 1 applic topical QID PRN herpes #5 12/19/23 (Denavir) grams cyclobenzaprine 10 mg tablet 10 mg PO TID PRN muscle spasm #10 04/27/24 tabs glipizide 10 mg tablet, extended 10 mg PO DAILY #90 tabs 05/04/24 release 24 hr lisinopril 20 mg tablet 20 mg PO DAILY #90 tabs 05/04/24 prochlorperazine maleate 10 mg 10 mg PO TID PRN nausea and 07/16/24 tablet vomiting #50 tab-caps sitagliptin phosphate 100 mg 100 mg PO DAILY #90 tabs 08/24/24 tablet (Januvia) lidocaine 5 % topical patch 1 patch topical DAILY PRN pain #30 09/01/24 (Lidoderm) ea atorvastatin 20 mg tablet 20 mg PO QPM #90 tabs 11/03/24 clonazepam 0.5 mg tablet 0.5 mg PO BID #60 tabs 11/09/24 fluoxetine 20 mg capsule 20 mg PO DAILY #90 tab-caps 11/12/24 tirzepatide 12.5 mg/0.5 mL 12.5 mg (0.5 mL) subcut QWEEK #8 mL 11/12/24 subcutaneous pen injector valproic acid 250 mg capsule 250 mg PO BID #60 caps 11/12/24 methylphenidate HCl 10 mg tablet 10 mg PO BID #60 tab-caps 12/10/24 benzonatate 100 mg capsule 100 mg PO TID PRN #10 caps 12/19/24 Allergies Allergy/AdvReac Type Severity Reaction Status Date / Time sulfamethoxazole Allergy Intermediate SKIN RASH, Verified 12/19/24 18:16 ? airway swelling trimethoprim Allergy Intermediate SKIN RASH Verified 12/19/24 18:16 doxycycline AdvReac Intermediate Itching Verified 12/19/24 18:16 metformin AdvReac Intermediate Diarrhea Verified 12/19/24 18:16 General Stated Complaint: RespSymp YOKASTA: 3 Review of Systems Narrative: see HPI Exam Const General: cooperative and well developed Nutritional Appearance: average body habitus Orientation: alert and oriented x3 HENMT Head: normal to inspection General nose exam: external nose normal Face and sinus: normal facial exam and dry mucous membranes (tacky ) Throat: posterior oropharynx normal Neck Neck: normal visual inspection Resp Effort & Inspection: tachypneic Auscultation: wheezes (tight, all dennis) Cardio Jugular venous pressure: no JVD Rate: tachycardic Rhythm: regular rhythm Skin General skin exam: no rashes or lesions noted Neuro General: patient alert, patient oriented x3, gait normal, tone normal and moves all extremities Extrem General: no pedal edema and no calf tenderness Course Vital Signs Vital signs: Vital Signs Temperature 36.7 C 12/19/24 18:15 Pulse 101 H 12/19/24 18:15 Respiratory Rate 28 H 12/19/24 18:15 Blood Pressure 143/83 H 12/19/24 18:15 Pulse Oximetry 91 L 12/19/24 18:15 Temperature 36.7 C 12/19/24 18:15 Temperature Source Oral 12/19/24 18:15 Pulse 101 H 12/19/24 18:15 Respiratory Rate 28 H 12/19/24 18:15 Blood Pressure 143/83 H 12/19/24 18:15 Blood Pressure Position Sitting 12/19/24 18:15 Pulse Oximetry 91 L 12/19/24 18:15 Oxygen Delivery Method Room Air 12/19/24 18:15 Oxygen Flow Rate 0 12/19/24 18:15 Medical Decision Making Imaging Data Radiologic Study: Radiologist's impression: PROCEDURE INFORMATION: Exam: XR Chest Exam date and time: 12/19/2024 7:00 PM Age: 59 years old Clinical indication: Cough and wheezing TECHNIQUE: Imaging protocol: Radiologic exam of the chest. Views: 2 views. COMPARISON: CT BRAIN NECK CTA 11/01/2022 8:09 AM FINDINGS: Lungs: No pulmonary consolidation is seen. Symmetric nodular densities projecting over the lower lung zones probably represents nipple shadows. Pleural spaces: No pleural effusion or pneumothorax is demonstrated. Heart/Mediastinum: The heart appears normal in size. Bones/joints: Visualized bony structures appear grossly intact, as seen. There are osteophytes along the thoracic spinal margin. IMPRESSION: No active disease is seen in the chest. Quality:SDOH Health Related Social Needs: No Data to Display PFSH All Active Problems (Updated 12/19/24 @ 20:53 by Kiya Martin) Viral respiratory illness (Acute) Neuropathy (Acute) Immunization due (Acute) Insomnia (Acute) Cough (Acute) Low back pain (Acute) Osteoarthritis of right knee (Acute) Smoker (Acute) BMI 37.0-37.9, adult (Acute) Migraine (Chronic) Diabetes mellitus (Chronic 03/24/13) Depressive disorder (Chronic) Choroidal degeneration (Chronic) OS [facility] CAPILLARY CHOROIDAL NEOVASCULAR MEMBRANE ADHD (attention deficit hyperactivity disorder) (Chronic 09/02/17) Anxiety (Chronic) Medical History (Updated 12/19/24 @ 20:53 by Kiya Martin) Acute internal derangement of right knee Pes anserine bursitis MCL sprain of right knee Palpitation Chest pain Osteoarthritis of right hip De Quervain's disease (tenosynovitis) Right wrist pain Masses of both breasts Vaginitis Chronic pharyngitis (03/07/15) Chronic tonsillitis (03/07/15) Joint pain Lymphadenopathy Premature beats Shoulder pain Cervical pain (neck) Therapeutic procedure shockwave therapy; left extracorporeal shockwave therapy Dr. Santiago Premature beats premature beats PVC's Lymphadenopathy right lymph node> left Shoulder pain Joint pain ribs Smoker Chronic pharyngitis 03/07/15 Nephrolithiasis (10/10/16) ACUTE WITH PYELONEPHRITIS; DR. ALICEA Low back pain (06/14/14) Disorder of parathyroid gland S/P removal DUB (dysfunctional uterine bleeding) (11/01/15) fibroids on US Chronic tonsillitis (03/07/15) Annual physical exam (10/21/17) Abnormal cervical Papanicolaou smear CRYO Left ureteral stone Surgical History (Updated 01/07/23 @ 20:38 by Keisha Magaña MD, [place]) History of total right hip replacement (05/22/22) History of bilateral ligation of fallopian tubes History of section History of parathyroidectomy Status post appendectomy History of bilateral tubal ligation H/O parathyroidectomy H/O section S/P appendectomy Ligation of fallopian tube Tonsillectomy 04/11/15 SHOCKWAVE THERAPY (04/10/12) LEFT EXTRACORPOREAL SHOCK WAVE THERAPY (DR. SANTIAGO) section Parathyroidectomy Cystoscopy 10/08/16 DR. GIL; LEFT URETERAL STONE EXTRACTION Appendectomy Family History Mother Essential hypertension Depression Father , age 64 Diabetes Essential hypertension Hyperlipidemia Alcohol abuse Brother No problems noted. Maternal Grandfather Heart disease Lung cancer Paternal Grandfather Prostate cancer Maternal Grandmother Diabetes Essential hypertension Bladder cancer Paternal Grandmother Essential hypertension FAMILY HISTORY Abdominal aortic aneurysm RUPTURED Son Depression Son No problems noted. Daughter Depression Social History (Updated 11/12/24 @ 12:50 by Andressa Hermosillo) Smoking/Tobacco Use Status: Former Tobacco Use tobacco type: cigarettes Quit Date: 11/25/09 Tobacco: How many years used: 25 Second Hand Exposure: Yes Smoking risk assessment performed?: Yes Alcohol Intake: former Drug use: Never Substance use type: does not use Caregiver/Support person: No Household members: significant other Housing: house Communication Needs: None Do you need help understanding health information?: Never current occupation: RN Pets and animals: Yes Pets and animals: cat(s) and dog(s) Sexually active: Yes Do you think of yourself as: straight/heterosexual Current gender identity: female What is your relationship status?: living with partner How often do you talk on the phone with friends or family?: never How often do you get together with friends or relatives?: decline to answer How often do you attend restorationist or gnosticist services?: decline to answer Do you belong to any clubs or organized social groups?: no Panel score (0-1 are the most socially isolated patients): 1 What type of physical activity do you participate in: none Frequency: does not exercise Hannah/Christianity: Bahai Special hannah needs: No Seatbelt use: always Helmet use: Yes Helmet use: always Drive intox or ride w/intox ambulette driver: No Do you feel safe at home: Yes Do you feel safe in your relationship?: Yes Would you like helpful sources: No
[2024-12-19] MEDS: Albuterol/Ipratropium 3 ML UPD VIAL UPD ×2 (18:45→19:40)
[2024-12-19 18:51] LABS: Abs Immature Grans 0.03 10^3/uL (0.0-0.06); Absolute Basophil Count 0.04 10^3/uL (0.0-0.2); Absolute Eosinophil Count 0.29 10^3/uL (0.0-0.7); Absolute Lymphocyte Count 1.07 10^3/uL (1.2-3.4); Absolute Monocyte Count 0.51 10^3/uL (0.1-0.8); Absolute Neutrophil Count 5.56 10^3/uL (1.2-6.7); Basophils % 0.5 %; Eosinophils % 3.9 %; HGB 13.6 g/dL (11.2-15.7); Immature Grans % 0.4 %; Lymphocytes % 14.3 %; MCH 29.1 pg (27.0-33.0); MCHC 32.4 % (32.0-36.0); MCV 90 fL (80-95); MPV 9.1 fL (8.0-11.0); Monocytes % 6.8 %; Neutrophils % 74.1 %; Platelet Count 246 10^3/uL (130-400); RBC 4.68 10^6/uL (3.93-5.22); RDW 13.2 % (11.7-14.6); RDW-SD 43.4 fL
--- NOTE | 2024-12-19 19:01 | DI.RAD_ITS ---
Exam(s) XR CHEST 2V PA LATERAL EXAM: XR CHEST 2V PA LATERAL CLINICAL HISTORY: cough, wheeze. TECHNIQUE: 2D digital imaging was performed. COMPARISON: CR CHEST 2 VIEWS PA,LAT from 10/16/2016 FINDINGS: 2 views: Heart size is normal. The mediastinum is not widened. Lungs are clear. No infiltrates nor pleural effusions. Round density over the left lung base probably the left breast nipple shadow. IMPRESSION: No acute pulmonary findings.Other findings as above. DATA REPOSITORY: RADIATION DOSE DELIVERED:
[2024-12-19 19:18] LABS: ALT 40 U/L (14-59); AST 20 U/L (15-37); Albumin 3.6 g/dL (3.4-5.0); Alkaline Phosphatase 84 U/L (46-116); Anion Gap 5.3 mmol/L (3-11); BUN 8 mg/dL (7-18); Bilirubin, Total 0.37 mg/dL (0.2-1.0); CO2 30.7 mmol/L (21.0-32.0); Calcium 8.4 mg/dL (8.5-10.1); Chloride 106 mmol/L (98-107); Estimated GFR 65.71 (mL/min/1.73m2); Glucose 128 mg/dL (74-106); Magnesium 2.1 mg/dL (1.8-2.4); NT-proBNP 43 pg/mL (<300); Potassium 4.2 mmol/L (3.5-5.1); Sodium 142 mmol/L (136-145); Total Protein 6.7 g/dL (6.4-8.2)
[2024-12-19 19:27] LABS: COVID-19 PCR Negative (Negative); Influenza A PCR Negative (Negative); Influenza B PCR Negative (Negative); RSV PCR Negative (Negative)
[2024-12-19 19:30] LABS: Source NASOPHARYNX
--- NOTE | 2024-12-19 19:58 | W.PC.ACHO1 ---
Registration Status: Primary Language: Preferred Language: ED Information & Data Chief Complaint RespSymp 12/19/24 18:35 Triage Note c/o resp symptoms, cough, 12/19/24 18:15 sore throat, SOB with exertion, tested negative for covid/flu earlier today. 88% RA on arrival, up to 91 % after sitting. Denies chest pain, denies all other complaints. Medical / Surgical History (Last Updated 01/07/23 @ 20:38 by Keisha Magaña MD, [place]) Abnormal cervical Papanicolaou smear Acute internal derangement of right knee Annual physical exam (10/21/17) Cervical pain (neck) Chest pain Chronic pharyngitis Chronic pharyngitis (03/07/15) Chronic tonsillitis (03/07/15) Chronic tonsillitis (03/07/15) De Quervain's disease (tenosynovitis) Disorder of parathyroid gland DUB (dysfunctional uterine bleeding) (11/01/15) Joint pain Joint pain Left ureteral stone Low back pain (06/14/14) Lymphadenopathy Lymphadenopathy Masses of both breasts MCL sprain of right knee Nephrolithiasis (10/10/16) Osteoarthritis of right hip Palpitation Pes anserine bursitis Premature beats Premature beats Right wrist pain Shoulder pain Shoulder pain Smoker Therapeutic procedure Vaginitis (Last Updated 01/07/23 @ 20:38 by Keisha Magaña MD, [place]) Appendectomy section Cystoscopy H/O section H/O parathyroidectomy History of bilateral ligation of fallopian tubes History of bilateral tubal ligation History of section History of parathyroidectomy History of total right hip replacement (05/22/22) Ligation of fallopian tube Parathyroidectomy S/P appendectomy SHOCKWAVE THERAPY (04/10/12) Status post appendectomy Tonsillectomy Most Recent Vital Signs Temperature 36.7 C 12/19/24 18:47 Temperature Source Oral 12/19/24 18:47 Pulse 86 12/19/24 19:40 Pulse 86 12/19/24 19:40 Respiratory Rate 14 12/19/24 19:40 Respiratory Effort Short of Breath, Incrsd Work of Breathing 12/19/24 18:49 Respiratory Depth Shallow 12/19/24 18:49 Blood Pressure 127/78 12/19/24 19:37 Blood Pressure Mean 93 12/19/24 19:37 Blood Pressure Position Sitting 12/19/24 18:47 Pulse Oximetry 96 12/19/24 19:40 Oxygen Delivery Method Room Air 12/19/24 18:47 Oxygen Flow Rate 0 12/19/24 18:47 Allergies sulfamethoxazole Allergy (Intermediate, Verified 12/19/24 18:16) SKIN RASH, ? airway swelling trimethoprim Allergy (Intermediate, Verified 12/19/24 18:16) SKIN RASH doxycycline Adverse Reaction (Intermediate, Verified 12/19/24 18:16) Itching metformin Adverse Reaction (Intermediate, Verified 12/19/24 18:16) Diarrhea Precautions Isolation PUI 12/19/24 18:17 IV IV Catheter Type [Right Saline Lock Antecubital] IV Catheter Gauge [Right 18 Antecubital] Diagnostics 12/19/24 12/19/24 Range/Units 19:56 18:41 WBC 7.50 (4.4-10.8) 10^3/uL RBC 4.68 (3.93-5.22) 10^6/uL Hgb 13.6 (11.2-15.7) g/dL Hct 42.0 (36.0-46.0) % MCV 90 (80-95) fL MCH 29.1 (27.0-33.0) pg MCHC 32.4 (32.0-36.0) % RDW 13.2 (11.7-14.6) % Plt Count 246 (130-400) 10^3/uL MPV 9.1 (8.0-11.0) fL Immature Gran % 0.4 % Neutrophils % 74.1 % Lymphocytes % 14.3 % Monocytes % 6.8 % Eosinophils % 3.9 % Basophils % 0.5 % Nucleated RBC % 0.0 (0.0-0.3) % Absolute Neutrophils 5.56 (1.2-6.7) 10^3/uL Absolute Lymphocytes 1.07 L (1.2-3.4) 10^3/uL Absolute Monocytes 0.51 (0.1-0.8) 10^3/uL Absolute Eosinophils 0.29 (0.0-0.7) 10^3/uL Absolute Basophils 0.04 (0.0-0.2) 10^3/uL D-Dimer Pending Sodium 142 (136-145) mmol/L Potassium 4.2 (3.5-5.1) mmol/L Chloride 106 (98-107) mmol/L Carbon Dioxide 30.7 (21.0-32.0) mmol/L Anion Gap 5.3 (3-11) mmol/L BUN 8 (7-18) mg/dL Creatinine 1.0 (0.55-1.02) mg/dL Est GFR (CKD-EPI 2020) 65.71 (mL/min/1.73m2) Glucose 128 H (74-106) mg/dL Calcium 8.4 L (8.5-10.1) mg/dL Magnesium 2.1 (1.8-2.4) mg/dL Total Bilirubin 0.37 (0.2-1.0) mg/dL AST 20 (15-37) U/L ALT 40 (14-59) U/L Alkaline Phosphatase 84 (46-116) U/L NT-Pro-B Natriuret Pep 43 (<300) pg/mL Total Protein 6.7 (6.4-8.2) g/dL Albumin 3.6 (3.4-5.0) g/dL COVID-19 Source NASOPHARYNX SARS-CoV-2 (PCR) Negative (Negative) Influenza Type A (PCR) Negative (Negative) Influenza Type B (PCR) Negative (Negative) RSV (PCR) Negative (Negative) Intake and Output - 24 Hour Total 12/19/24 18:12 thru 12/19/24 18:48 Intake Total 10 Balance 10 Weight 89.358 kg Intake: IV 10 Falls Risk Assessment History of Falls No History 12/19/24 18:47 Contributing Factors No Factors 12/19/24 18:47 Ambulatory Aids Independent 12/19/24 18:47 Tubes/Lines W/no contributing factors 12/19/24 18:47 Gait Evaluation No gait disturbance 12/19/24 18:47 Cognition No cognitive impairment 12/19/24 18:47 Fall Total Score 10 12/19/24 18:47 Level of Risk Standard/Low Risk 12/19/24 18:47 v v v v v v v v v Sending and/or Receiving Nurses: Please use comment section below to note any information pertinent to the patient hand-off not included above. Information / Comments: All questions answered at bedside Report received from: Lisseth Simmons RN
[2024-12-19] MEDS: Benzonatate 100 MG CAP PO (20:05)
[2024-12-19 20:22] LABS: D-Dimer 442 ng/mlFEU (<500)
[2024-12-19 20:23] LABS: BE (Venous) 2 mmol/L (-2-3); HCO3 (Venous) 27 mmol/L (23-28); O2 Sat (Venous) 61 %; TCO2 (Venous) 29 mmol/L (24-29); pCO2 (Venous) 48 mmHg (41-51); pH (Venous) 7.36 (7.31-7.41); pO2 (Venous) 33 mmHg
[2024-12-19 20:39] LABS: Troponin I < 4 ng/L (<or=51)
--- NOTE | 2024-12-19 20:40 | DI.VRAD_ITS ---
PROCEDURE INFORMATION: Exam: XR Chest Exam date and time: 12/19/2024 7:00 PM Age: 59 years old Clinical indication: Cough and wheezing TECHNIQUE: Imaging protocol: Radiologic exam of the chest. Views: 2 views. COMPARISON: CT BRAIN NECK CTA 11/01/2022 8:09 AM FINDINGS: Lungs: No pulmonary consolidation is seen. Symmetric nodular densities projecting over the lower lung zones probably represents nipple shadows. Pleural spaces: No pleural effusion or pneumothorax is demonstrated. Heart/Mediastinum: The heart appears normal in size. Bones/joints: Visualized bony structures appear grossly intact, as seen. There are osteophytes along the thoracic spinal margin. IMPRESSION: No active disease is seen in the chest. Dictated and Authenticated by: Stanley Langley MD. Ordering:YOSEPH Huertas MD
[2024-12-19] MEDS: Albuterol HFA 8 GM 60 PUFF INH IH (20:52)
[2024-12-19] MEDS: Inhaler, Assist Device 1 EACH MC (20:56)
== END 2024-12-19 21:01 | disposition home or self-care (01) ==
PROVIDERS: Emergency Provider Nurse Practitioner Family; PCP Family Medicine
DX: J06.9 Acute upper respiratory infection, unspecified (principal); B97.89 Other viral agents as the cause of diseases classified elsewhere; E11.9 Type 2 diabetes mellitus without complications; Z79.84 Long term (current) use of oral hypoglycemic drugs; Z79.85 Long-term (current) use of injectable non-insulin antidiabetic drugs; Z87.891 Personal history of nicotine dependence
CPT/HCPCS: 36415; 80053; 82805; 87637; 93005; 94640; 99285; 71046; 83735; 83880; 84484; 85025; 85379; 93010; 99284; J7620

== ENCOUNTER 2024-12-20 06:51 | Inpatient (IN) | payer OTHER, SELFPAY ==
[2024-12-20] VITALS (55 sets, daily range): BP systolic 108–158; BP diastolic 48–77; PULSE 102–134; RESP 2–31; TEMP 36.6–38.6; O2SAT 89–98
--- NOTE | 2024-12-20 07:00 | RT.EKG_ITS ---
APPROVED REPORT Exam: Resting ECG Reason for Exam: SOB Patient Location: E HR:110 bpm ECG Measurements Heart Rate 110 AXIS OH 136 P 67 QRSd 84 QRS 74 QT 336 T 69 QTc 456 Conclusion Sinus tachycardia...rate> 99
[2024-12-20] MEDS: Albuterol/Ipratropium 3 ML UPD VIAL UPD ×3 (07:15→22:01)
--- NOTE | 2024-12-20 07:15 | DI.RAD_ITS ---
Exam(s) XR CHEST 2V PA LATERAL EXAM: XR CHEST 2V PA LATERAL CLINICAL HISTORY: cough, dyspnea. TECHNIQUE: 2D digital imaging was performed. COMPARISON: CR,XR XR CHEST 2V PA LATERAL from 12/19/2024 FINDINGS: 2 views: Heart size is normal. The mediastinum is not widened. Mild increased lung markings but no confluent infiltrates nor pleural effusions. The previously described brown density seen projected over the left lung base on the prior images per formed yesterday is no longer seen. There are no pleural effusions. No CHF. IMPRESSION: No confluent infiltrates. No pleural effusions. DATA REPOSITORY: RADIATION DOSE DELIVERED:
--- NOTE | 2024-12-20 07:16 | ED.GENADUL_ITS ---
Discharge Plan Disposition Patient Disposition: Admit to [facility] Condition: Serious Discharge Details Chief Complaint: SOB Clinical Impression: Influenza A, Acute hypoxemic respiratory failure Primary Care Provider: Keisha Magaña ED Provider: Jarred Sol [place] Meds and New Rx's Prescriptions: No Action tirzepatide 12.5 mg/0.5 mL pen injector 12.5 mg subcut QWEEK Qty: 8 4RF fluoxetine 20 mg capsule 20 mg PO DAILY Qty: 90 11RF valproic acid 250 mg capsule 250 mg PO BID Qty: 60 4RF (DME) FreeStyle Test 1 EACH strip 1 strip Miscellaneous DAILY Rx Instructions: DX:250. (DME) lancets [OneTouch Delica Lancets] 1 EACH misc 1 ea Sub-Q DAILY Rx Instructions: DX:250. diclofenac sodium [Arthritis Pain (diclofenac)] 1 % gel 2 g topical QID Qty: 150 3RF Rx Instructions: apply to wrist penciclovir [Denavir] 1 % cream 1 applic Topical QID PRN (Reason: herpes) Qty: 5 4RF cyclobenzaprine 10 mg tablet 10 mg PO TID PRN (Reason: muscle spasm) Qty: 10 0RF glipizide 10 mg tablet extended release 24hr 10 mg PO DAILY Qty: 90 5RF lisinopril 20 mg tablet 20 mg PO DAILY Qty: 90 5RF prochlorperazine maleate 10 mg tablet 10 mg PO TID PRN (Reason: nausea and vomiting) Qty: 50 0RF Januvia 100 mg tablet 100 mg PO DAILY Qty: 90 4RF lidocaine [Lidoderm] 5 % adhesive patch,medicated 1 patch TP DAILY PRN (Reason: pain) Qty: 30 2RF Rx Instructions: leave on most painful area for up to 12 hrs atorvastatin 20 mg tablet 20 mg PO QPM Qty: 90 5RF clonazepam 0.5 mg tablet 0.5 mg PO BID Qty: 60 5RF methylphenidate HCl 10 mg tablet 10 mg PO BID MDD 3 Qty: 60 0RF acetaminophen 500 mg tablet 500 mg PO Q6H PRN (Reason: pain) Qty: 60 2RF benzonatate 100 mg capsule 100 mg PO TID PRNQty: 10 0RF HPI General Mode of arrival: EMS . Date/Time Provider Initiated Documentation: 12/20/24 07:06 . Limitations to Documentation: no limitations . Information obtained by: patient . History of Present Illness 59 year old F presents to the emergency department with the chief complaint of dyspnea, cough, fever, described as moderate, Patient started experiencing this day(s) (2) and it has been constant. No relieving factors improve symptom(s), No exacerbating factors reported . Patient notes cough, fever/chills and shortness of breath. Patient did receive the following treatments prior to arrival, none Related Data Home Medications ?Medication ?Instructions ?Recorded ?Confirmed blood sugar diagnostic (FreeStyle 03/18/13 12/20/24 Test strips) lancets 33 gauge (OneTouch Delica 03/18/13 12/20/24 Lancets) diclofenac sodium 1 % topical gel 2 g topical QID #150 grams 01/16/21 12/20/24 (Arthritis Pain (diclofenac)) acetaminophen 500 mg tablet 500 mg PO Q6H PRN pain #60 tabs 05/22/22 12/20/24 penciclovir 1 % topical cream 1 applic topical QID PRN herpes #5 12/19/23 12/20/24 (Denavir) grams cyclobenzaprine 10 mg tablet 10 mg PO TID PRN muscle spasm #10 04/27/24 12/20/24 tabs glipizide 10 mg tablet, extended 10 mg PO DAILY #90 tabs 05/04/24 12/20/24 release 24 hr lisinopril 20 mg tablet 20 mg PO DAILY #90 tabs 05/04/24 12/20/24 prochlorperazine maleate 10 mg 10 mg PO TID PRN nausea and 07/16/24 12/20/24 tablet vomiting #50 tab-caps sitagliptin phosphate 100 mg 100 mg PO DAILY #90 tabs 08/24/24 12/20/24 tablet (Januvia) lidocaine 5 % topical patch 1 patch topical DAILY PRN pain #30 09/01/24 12/20/24 (Lidoderm) ea atorvastatin 20 mg tablet 20 mg PO QPM #90 tabs 11/03/24 12/20/24 clonazepam 0.5 mg tablet 0.5 mg PO BID #60 tabs 11/09/24 12/20/24 fluoxetine 20 mg capsule 20 mg PO DAILY #90 tab-caps 11/12/24 12/20/24 tirzepatide 12.5 mg/0.5 mL 12.5 mg (0.5 mL) subcut QWEEK #8 mL 11/12/24 12/20/24 subcutaneous pen injector valproic acid 250 mg capsule 250 mg PO BID #60 caps 11/12/24 12/20/24 methylphenidate HCl 10 mg tablet 10 mg PO BID #60 tab-caps 12/10/24 12/20/24 benzonatate 100 mg capsule 100 mg PO TID PRN #10 caps 12/19/24 12/20/24 Previous Rx's ?Medication ?Instructions ?Recorded diclofenac sodium 1 % topical gel 2 g topical QID #150 grams 01/16/21 (Arthritis Pain (diclofenac)) acetaminophen 500 mg tablet 500 mg PO Q6H PRN pain #60 tabs 05/22/22 penciclovir 1 % topical cream 1 applic topical QID PRN herpes #5 12/19/23 (Denavir) grams cyclobenzaprine 10 mg tablet 10 mg PO TID PRN muscle spasm #10 04/27/24 tabs glipizide 10 mg tablet, extended 10 mg PO DAILY #90 tabs 05/04/24 release 24 hr lisinopril 20 mg tablet 20 mg PO DAILY #90 tabs 05/04/24 prochlorperazine maleate 10 mg 10 mg PO TID PRN nausea and 07/16/24 tablet vomiting #50 tab-caps sitagliptin phosphate 100 mg 100 mg PO DAILY #90 tabs 08/24/24 tablet (Januvia) lidocaine 5 % topical patch 1 patch topical DAILY PRN pain #30 09/01/24 (Lidoderm) ea atorvastatin 20 mg tablet 20 mg PO QPM #90 tabs 11/03/24 clonazepam 0.5 mg tablet 0.5 mg PO BID #60 tabs 11/09/24 fluoxetine 20 mg capsule 20 mg PO DAILY #90 tab-caps 11/12/24 tirzepatide 12.5 mg/0.5 mL 12.5 mg (0.5 mL) subcut QWEEK #8 mL 11/12/24 subcutaneous pen injector valproic acid 250 mg capsule 250 mg PO BID #60 caps 11/12/24 methylphenidate HCl 10 mg tablet 10 mg PO BID #60 tab-caps 12/10/24 benzonatate 100 mg capsule 100 mg PO TID PRN #10 caps 12/19/24 Allergies Allergy/AdvReac Type Severity Reaction Status Date / Time sulfamethoxazole Allergy Intermediate SKIN RASH, Verified 12/20/24 07:10 ? airway swelling trimethoprim Allergy Intermediate SKIN RASH Verified 12/20/24 07:10 doxycycline AdvReac Intermediate Itching Verified 12/20/24 07:10 metformin AdvReac Intermediate Diarrhea Verified 12/20/24 07:10 General Stated Complaint: SOB YOKASTA: 2 Review of Systems All systems reviewed & are unremarkable except as noted in HPI and below Constitutional Constitutional: Reports chills, Reports fever(s), Reports headache(s) and Denies weakness ENT Ears, Nose, Mouth, and Throat: Reports headache(s) Cardiovascular Cardiovascular: Denies chest pain and Reports dyspnea Respiratory Respiratory: Reports cough and Reports dyspnea Gastrointestinal Gastrointestinal: Denies abdominal pain, Denies nausea and Denies vomiting Integumentary/Breasts Skin/Breast: Denies rash Neurologic Neurologic: Reports headache(s) and Denies weakness Exam Const Orientation: alert HENMT Head: normal to inspection Ears: external ears normal General nose exam: external nose normal Mouth: moist mucous membranes Eyes General: appearance normal, both eyes and all related structures Neck Neck: normal visual inspection Resp Auscultation: rhonchi and wheezes Cardio Rate: regular rate Skin General skin exam: no rashes or lesions noted Neuro General: patient alert and patient oriented x3 Extrem General: normal to inspection Psych Mental Status: mental status grossly normal Course Vital Signs Vital signs: Vital Signs Temperature 38.6 C H 12/20/24 07:08 Pulse 113 H 12/20/24 07:08 Respiratory Rate 22 12/20/24 07:08 Blood Pressure 135/77 12/20/24 07:08 Pulse Oximetry 93 12/20/24 07:08 Temperature 38.6 C H 12/20/24 07:08 Temperature Source Oral 12/20/24 07:08 Pulse 113 H 12/20/24 07:08 Respiratory Rate 22 12/20/24 07:08 Blood Pressure 135/77 12/20/24 07:08 Blood Pressure Position Sitting 12/20/24 07:08 Pulse Oximetry 93 12/20/24 07:08 Oxygen Delivery Method Nasal Cannula 12/20/24 07:08 Oxygen Flow Rate 2 12/20/24 07:08 Pain Level 6 12/20/24 07:08 Comment Pt c/o a DAVIES 12/20/24 07:08 Medical Decision Making 59-year-old female with a history of prior smoking, ADHD, diabetes who comes in with chief complaint of dyspnea and cough and fever since yesterday. She also notes a slowly worsening frontal headache. No neck stiffness, rashes, vomiting. She is alert and oriented on arrival. She does have diffuse wheezing on exam bilaterally. No JVD or leg swelling. She is febrile on arrival. I suspect respiratory infection, will check CBC, CMP, Fluvid and chest x-ray. Will treat her symptoms with another DuoNeb and levalbuterol. 125 of Solu-Medrol given by EMS prior to arrival. Patient feeling better though still requiring 2 L nasal cannula. She is positive for flu, chest x-ray pending. X-ray read as atelectasis versus pneumonia. She has no white count given she is flu a positive I doubt bacterial pneumonia. She still having oxygen requirement, discussed with hospitalist will plan to admit. Differential Diagnosis Differential Diagnosis: pneumonia, chf, copd, covid, flu Medical Records Medical records reviewed: Yes I reviewed the patient's medical records. Lab Data Lab results reviewed: Yes I reviewed the patient's lab results. ECG Data Attestation: I personally reviewed and interpreted this ECG (s) as follows: Prior ECG tracings: available for review Interpretation: sinus tachycardia, rate of 110 pr 136 no stemi Quality:SDOH Health Related Social Needs: No Data to Display PFSH All Active Problems (Updated 12/20/24 @ 13:26 by Jarred Sol MD) Acute hypoxemic respiratory failure (Acute) Influenza A (Acute) Viral respiratory illness (Acute) Neuropathy (Acute) Immunization due (Acute) Insomnia (Acute) Cough (Acute) Low back pain (Acute) Osteoarthritis of right knee (Acute) Smoker (Acute) BMI 37.0-37.9, adult (Acute) Migraine (Chronic) Diabetes mellitus (Chronic 03/24/13) Depressive disorder (Chronic) Choroidal degeneration (Chronic) [facility] CHOROIDAL NEOVASCULAR [employer]BRANE ADHD (attention deficit hyperactivity disorder) (Chronic 09/02/17) Anxiety (Chronic) Medical History Acute internal derangement of right knee Pes anserine bursitis MCL sprain of right knee Palpitation Chest pain Osteoarthritis of right hip De Quervain's disease (tenosynovitis) Right wrist pain Masses of both breasts Vaginitis Chronic pharyngitis (03/07/15) Chronic tonsillitis (03/07/15) Joint pain Lymphadenopathy Premature beats Shoulder pain Cervical pain (neck) Therapeutic procedure shockwave therapy; left extracorporeal shockwave therapy Dr. Santiago Premature beats premature beats PVC's Lymphadenopathy right lymph node> left Shoulder pain Joint pain ribs Smoker Chronic pharyngitis 03/07/15 Nephrolithiasis (10/10/16) ACUTE WITH PYELONEPHRITIS; DR. ALICEA Low back pain (06/14/14) Disorder of parathyroid gland S/P removal DUB (dysfunctional uterine bleeding) (11/01/15) fibroids on US Chronic tonsillitis (03/07/15) Annual physical exam (10/21/17) Abnormal cervical Papanicolaou smear CRYO Left ureteral stone Surgical History History of total right hip replacement (05/22/22) History of bilateral ligation of fallopian tubes History of section History of parathyroidectomy Status post appendectomy History of bilateral tubal ligation H/O parathyroidectomy H/O section S/P appendectomy Ligation of fallopian tube Tonsillectomy 04/11/15 SHOCKWAVE THERAPY (04/10/12) LEFT EXTRACORPOREAL SHOCK WAVE THERAPY (DR. SANTIAGO) section Parathyroidectomy Cystoscopy 10/08/16 DR. GIL; LEFT URETERAL STONE EXTRACTION Appendectomy Family History Mother Essential hypertension Depression Father , age 64 Diabetes Essential hypertension Hyperlipidemia Alcohol abuse Brother No problems noted. Maternal Grandfather Heart disease Lung cancer Paternal Grandfather Prostate cancer Maternal Grandmother Diabetes Essential hypertension Bladder cancer Paternal Grandmother Essential hypertension FAMILY HISTORY Abdominal aortic aneurysm RUPTURED Son Depression Son No problems noted. Daughter Depression Social History Smoking/Tobacco Use Status: Former Tobacco Use tobacco type: cigarettes Quit Date: 11/25/09 Tobacco: How many years used: 25 Second Hand Exposure: Yes Smoking risk assessment performed?: Yes Alcohol Intake: former Drug use: Never Substance use type: does not use Caregiver/Support person: No Household members: significant other Housing: house Communication Needs: None Do you need help understanding health information?: Never current occupation: RN Pets and animals: Yes Pets and animals: cat(s) and dog(s) Sexually active: Yes Do you think of yourself as: straight/heterosexual Current gender identity: female What is your relationship status?: living with partner How often do you talk on the phone with friends or family?: never How often do you get together with friends or relatives?: decline to answer How often do you attend worship or episcopalian services?: decline to answer Do you belong to any clubs or organized social groups?: no Panel score (0-1 are the most socially isolated patients): 1 What type of physical activity do you participate in: none Frequency: does not exercise Hannah/Gnosticism: Scientology Special hannah needs: No Seatbelt use: always Helmet use: Yes Helmet use: always Drive intox or ride w/intox seasonal delivery driver: No Do you feel safe at home: Yes Do you feel safe in your relationship?: Yes Would you like helpful sources: No
[2024-12-20 07:17] LABS: BE (Venous) 3 mmol/L (-2-3); HCO3 (Venous) 28 mmol/L (23-28); O2 Sat (Venous) 62 %; TCO2 (Venous) 25 mmol/L (24-29); pCO2 (Venous) 46 mmHg (41-51); pH (Venous) 7.39 (7.31-7.41); pO2 (Venous) 32 mmHg
[2024-12-20 07:18] LABS: Abs Immature Grans 0.06 10^3/uL (0.0-0.06); Absolute Basophil Count 0.06 10^3/uL (0.0-0.2); Absolute Eosinophil Count 0.15 10^3/uL (0.0-0.7); Absolute Lymphocyte Count 0.71 10^3/uL (1.2-3.4); Absolute Monocyte Count 0.61 10^3/uL (0.1-0.8); Absolute Neutrophil Count 7.91 10^3/uL (1.2-6.7); Basophils % 0.6 %; Eosinophils % 1.6 %; HCT 41.4 % (36.0-46.0); HGB 13.4 g/dL (11.2-15.7); Immature Grans % 0.6 %; Lymphocytes % 7.5 %; MCH 29.5 pg (27.0-33.0); MCHC 32.4 % (32.0-36.0); MCV 91 fL (80-95); MPV 9.1 fL (8.0-11.0); Monocytes % 6.4 %; Neutrophils % 83.3 %; Platelet Count 239 10^3/uL (130-400); RBC 4.55 10^6/uL (3.93-5.22); RDW 13.5 % (11.7-14.6); RDW-SD 45.2 fL
[2024-12-20] MEDS: Ketorolac 15 MG/ML VIAL IVP (07:34)
[2024-12-20] MEDS: Levalbuterol 1.25 MG/3 ML UPD VIAL UPD ×2 (07:34→17:54)
[2024-12-20 07:43] LABS: ALT 45 U/L (14-59); AST 33 U/L (15-37); Albumin 3.7 g/dL (3.4-5.0); Alkaline Phosphatase 84 U/L (46-116); Anion Gap 6.6 mmol/L (3-11); BUN 7 mg/dL (7-18); Bilirubin, Total 0.51 mg/dL (0.2-1.0); CO2 29.4 mmol/L (21.0-32.0); Calcium 8.8 mg/dL (8.5-10.1); Chloride 102 mmol/L (98-107); Estimated GFR 65.71 (mL/min/1.73m2); Glucose 204 mg/dL (74-106); NT-proBNP 205 pg/mL (<300); Potassium 3.9 mmol/L (3.5-5.1); Sodium 138 mmol/L (136-145); Total Protein 6.9 g/dL (6.4-8.2); Troponin I 5 ng/L (<or=51)
[2024-12-20] MEDS: Normal Saline 1,000 ML 1000 ML IV ×2 (08:00→10:45)
[2024-12-20 08:46] LABS: Troponin I 4 ng/L (<or=51)
[2024-12-20 09:06] LABS: COVID-19 PCR Negative (Negative); Influenza A PCR Positive (Negative); Influenza B PCR Negative (Negative); RSV PCR Negative (Negative)
[2024-12-20 09:07] LABS: Source Nasopharynx
[2024-12-20] MEDS: Oseltamivir 75 MG CAP PO ×2 (09:55→21:01)
--- NOTE | 2024-12-20 10:02 | DI.VRAD_ITS ---
PROCEDURE INFORMATION: Exam: XR Chest Exam date and time: 12/20/2024 9:50 AM Age: 59 years old Clinical indication: Other: Cough, dyspnea TECHNIQUE: Imaging protocol: Radiologic exam of the chest. Views: 2 views. COMPARISON: CR XR CHEST 2V PA LATERAL 12/19/2024 7:00 PM FINDINGS: Lungs: Opacities in both bases may represent atelectasis or pneumonia. Pleural spaces: Unremarkable. No pleural effusion. No pneumothorax. Heart/Mediastinum: Unremarkable. No cardiomegaly. Bones/joints: Unremarkable. IMPRESSION: Opacities in both bases may represent atelectasis or pneumonia. Dictated and Authenticated by: Melissa Briceño MD. Ordering:DEMARIO Stern MD
[2024-12-20] MEDS: Benzonatate 100 MG CAP 200 MG PO (10:45)
[2024-12-20] MEDS: Acetaminophen 500 MG TAB 1000 MG PO (10:45)
--- NOTE | 2024-12-20 13:15 | W.PM.HP.N ---
Date of service: 12/20/24 Time of Service: 13:15 Assessment and Plan Assessment and plan (1) Acute hypoxemic respiratory failure: Status: Acute Assessment and plan: Triggered by influenza A as below. She does not have a formal COPD diagnosis though as noted this diagnosis has been on her record. She has a long smoking history and 1st degree relative with [id number]. Given this history and repsonse to bronchodilators I will treat with steroids. Plan PFTs when back at baseline. No CO2 retention on VBGs EKG/troponins and BNaP do not suggest heart disease. d-dimer reassuring yesterday, but with worse hypoxia and tachycardia today will repeat, CTA if positive. (2) Influenza A: Status: Acute Assessment and plan: started on olsetamivir. Even though has had 4+ days of symptoms, was flu negative yesterday and newly positive. She may benefit from this. (3) Diabetes mellitus: Status: Chronic Assessment and plan: A1c has been well controlled as outpatient. Holding glipizide and covering with conservative glargine and moderate sliding scale. She should not still be on sitagliptin as she is on tirzepatide, holding this as well. (4) Depressive disorder: Status: Chronic Assessment and plan: Stable on treatment for anxiety, depression, ADHD. Continue outpatient medications (5) DVT prophylaxis: Status: Acute Assessment and plan: LMWH History of Present Illness History of Present Illness Chief Complaint: short of breath Narrative: 59 yo former smoker with COPD and type 2 DM presented with 4-5 days of progressive cough, fever, and gradually progressive dyspnea. She was seen in the ED 12/19 and was wheezing with O2 sat 91%. Flu/COVID/RSV negative as was chest x-ray. She was sent home, but continue to worsen and returned less than 24 hours later. Symptoms are associated with nasal congestion, poor oral intake, general body aches, and fatigue. The cough is minimally productive, no blood. She denies chest pain or palpitations. She has not had nausea/vomiting or bowel or urinary symptoms, though her appetite is poor and she is making less urine than normal. She has two contacts in the past week who have the flu, including her son. She does not take inhalers regularly and COPD not on her active list, though she has been treated for this on 4 occaisions in the past per the EHR. She has a 40 pack/year smoking history and she mentions her father of lung disease related to [id number] but she hasn't been tested. Review of Systems All systems reviewed & are unremarkable except as noted in HPI and below PFSH All Active Problems (Updated 12/20/24 @ 13:36 by Feroz Moser) DVT prophylaxis (Acute) Acute hypoxemic respiratory failure (Acute) Influenza A (Acute) Viral respiratory illness (Acute) Neuropathy (Acute) Immunization due (Acute) Insomnia (Acute) Cough (Acute) Osteoarthritis of right knee (Acute) Low back pain (Acute) Smoker (Acute) BMI 37.0-37.9, adult (Acute) Migraine (Chronic) Diabetes mellitus (Chronic 03/24/13) Depressive disorder (Chronic) Choroidal degeneration (Chronic) OS [facility] CHOROIDAL NEOVASCULAR MEMBRANE ADHD (attention deficit hyperactivity disorder) (Chronic 09/02/17) Anxiety (Chronic) Medical History Acute internal derangement of right knee Pes anserine bursitis MCL sprain of right knee Palpitation Chest pain Osteoarthritis of right hip De Quervain's disease (tenosynovitis) Right wrist pain Masses of both breasts Vaginitis Chronic pharyngitis (03/07/15) Chronic tonsillitis (03/07/15) Joint pain Lymphadenopathy Premature beats Shoulder pain Cervical pain (neck) Therapeutic procedure shockwave therapy; left extracorporeal shockwave therapy Dr. Santiago Premature beats premature beats PVC's Lymphadenopathy right lymph node> left Shoulder pain Joint pain ribs Smoker Chronic pharyngitis 03/07/15 Nephrolithiasis (10/10/16) ACUTE WITH PYELONEPHRITIS; DR. ALICEA Low back pain (06/14/14) Disorder of parathyroid gland S/P removal DUB (dysfunctional uterine bleeding) (11/01/15) fibroids on US Chronic tonsillitis (03/07/15) Annual physical exam (10/21/17) Abnormal cervical Papanicolaou smear CRYO Left ureteral stone Surgical History History of total right hip replacement (05/22/22) History of bilateral ligation of fallopian tubes History of section History of parathyroidectomy Status post appendectomy History of bilateral tubal ligation H/O parathyroidectomy H/O section S/P appendectomy Ligation of fallopian tube Tonsillectomy 04/11/15 SHOCKWAVE THERAPY (04/10/12) LEFT EXTRACORPOREAL SHOCK WAVE THERAPY (DR. SANTIAGO) section Parathyroidectomy Cystoscopy 10/08/16 DR. GIL; LEFT URETERAL STONE EXTRACTION Appendectomy Family History Mother Essential hypertension Depression Father , age 64 Diabetes Essential hypertension Hyperlipidemia Alcohol abuse Brother No problems noted. Maternal Grandfather Heart disease Lung cancer Paternal Grandfather Prostate cancer Maternal Grandmother Diabetes Essential hypertension Bladder cancer Paternal Grandmother Essential hypertension FAMILY HISTORY Abdominal aortic aneurysm RUPTURED Son Depression Son No problems noted. Daughter Depression Social History Smoking/Tobacco Use Status: Former Tobacco Use tobacco type: cigarettes Quit Date: 11/25/09 Tobacco: How many years used: 25 Second Hand Exposure: Yes Smoking risk assessment performed?: Yes Alcohol Intake: former Drug use: Never Substance use type: does not use Caregiver/Support person: No Household members: significant other Housing: house Communication Needs: None Do you need help understanding health information?: Never current occupation: RN Pets and animals: Yes Pets and animals: cat(s) and dog(s) Sexually active: Yes Do you think of yourself as: straight/heterosexual Current gender identity: female What is your relationship status?: living with partner How often do you talk on the phone with friends or family?: never How often do you get together with friends or relatives?: decline to answer How often do you attend nondenominational or catholic services?: decline to answer Do you belong to any clubs or organized social groups?: no Panel score (0-1 are the most socially isolated patients): 1 What type of physical activity do you participate in: none Frequency: does not exercise Hannah/Restorationist: Anabaptism Special hannah needs: No Seatbelt use: always Helmet use: Yes Helmet use: always Drive intox or ride w/intox ambulance driver paramedic: No Do you feel safe at home: Yes Do you feel safe in your relationship?: Yes Would you like helpful sources: No Meds Allergies and Home Medications Allergies Allergy/AdvReac Type Severity Reaction Status Date / Time sulfamethoxazole Allergy Intermediate SKIN RASH, Verified 12/20/24 07:10 ? airway swelling trimethoprim Allergy Intermediate SKIN RASH Verified 12/20/24 07:10 doxycycline AdvReac Intermediate Itching Verified 12/20/24 07:10 metformin AdvReac Intermediate Diarrhea Verified 12/20/24 07:10 Home Medications ?Medication ?Instructions ?Recorded ?Confirmed ?Type blood sugar diagnostic (FreeStyle 03/18/13 12/20/24 History Test strips) lancets 33 gauge (OneTouch Delica 03/18/13 12/20/24 History Lancets) diclofenac sodium 1 % topical gel 2 g topical QID #150 grams 01/16/21 12/20/24 Rx (Arthritis Pain (diclofenac)) acetaminophen 500 mg tablet 500 mg PO Q6H PRN pain #60 tabs 05/22/22 12/20/24 Rx penciclovir 1 % topical cream 1 applic topical QID PRN herpes #5 12/19/23 12/20/24 Rx (Denavir) grams cyclobenzaprine 10 mg tablet 10 mg PO TID PRN muscle spasm #10 04/27/24 12/20/24 Rx tabs glipizide 10 mg tablet, extended 10 mg PO DAILY #90 tabs 05/04/24 12/20/24 Rx release 24 hr lisinopril 20 mg tablet 20 mg PO DAILY #90 tabs 05/04/24 12/20/24 Rx prochlorperazine maleate 10 mg 10 mg PO TID PRN nausea and 07/16/24 12/20/24 Rx tablet vomiting #50 tab-caps sitagliptin phosphate 100 mg 100 mg PO DAILY #90 tabs 08/24/24 12/20/24 Rx tablet (Januvia) lidocaine 5 % topical patch 1 patch topical DAILY PRN pain #30 09/01/24 12/20/24 Rx (Lidoderm) ea atorvastatin 20 mg tablet 20 mg PO QPM #90 tabs 11/03/24 12/20/24 Rx clonazepam 0.5 mg tablet 0.5 mg PO BID #60 tabs 11/09/24 12/20/24 Rx fluoxetine 20 mg capsule 20 mg PO DAILY #90 tab-caps 11/12/24 12/20/24 Rx tirzepatide 12.5 mg/0.5 mL 12.5 mg (0.5 mL) subcut QWEEK #8 mL 11/12/24 12/20/24 Rx subcutaneous pen injector valproic acid 250 mg capsule 250 mg PO BID #60 caps 11/12/24 12/20/24 Rx methylphenidate HCl 10 mg tablet 10 mg PO BID #60 tab-caps 12/10/24 12/20/24 Rx benzonatate 100 mg capsule 100 mg PO TID PRN #10 caps 12/19/24 12/20/24 Rx Exam Narrative Exam Narrative: GEN: Alert and oriented x 4, pleasant and cooperative, gives linear history. No acute distress at rest. HEENT: Head atraumatic. Conjunctiva clear, no icterus. PEERL, EOMI. no rhinorrhea. MMM, OP benign. Neck is supple with no masses or lymphadenopathy, trachea midline LUNGS: Diffusely deminished with slight expiratory wheeze, no rales. Mild increase in effort, on 2 liters NC CV: tachycardic but regular with no murmurs, gallops, or rubs. ABD: active bowel sounds, soft, nontender and nondistended. No masses. EXT: no cyanosis, clubbing, or edema MSK: No joint redness or swelling NEURO: CN 2-12 grossly intact. Normal movement of 4 extremities. Normal speech and coordination. No tremor SKIN: No rashes or open wounds. PSYCH: normal mood and affect Results Imaging Chest x-ray: report reviewed and image reviewed EKG: report reviewed and image reviewed (sinus tachycardia, no STEMI) Labs 12/20/24 07:06 12/20/24 07:06 Labs: Laboratory Results - last 24 hr 12/20/24 12/20/24 12/20/24 07:06 08:19 08:21 WBC 9.50 RBC 4.55 Hgb 13.4 Hct 41.4 MCV 91 MCH 29.5 MCHC 32.4 RDW 13.5 Plt Count 239 MPV 9.1 Immature Gran % 0.6 Neutrophils % 83.3 Lymphocytes % 7.5 Monocytes % 6.4 Eosinophils % 1.6 Basophils % 0.6 Nucleated RBC % 0.0 Absolute Neutrophils 7.91 H Absolute Lymphocytes 0.71 L Absolute Monocytes 0.61 Absolute Eosinophils 0.15 Absolute Basophils 0.06 VBG pH 7.39 VBG pCO2 46 VBG pO2 32 VBG HCO3 28 VBG Total CO2 25 VBG O2 Saturation 62 VBG Base Excess 3 Sodium 138 Potassium 3.9 Chloride 102 Carbon Dioxide 29.4 Anion Gap 6.6 BUN 7 Creatinine 1.0 Est GFR (CKD-EPI 2020) 65.71 Glucose 204 H Calcium 8.8 Magnesium 2.0 Total Bilirubin 0.51 AST 33 ALT 45 Alkaline Phosphatase 84 Troponin I 5 4 NT-Pro-B Natriuret Pep 205 Total Protein 6.9 Albumin 3.7 COVID-19 Source Nasopharynx SARS-CoV-2 (PCR) Negative Influenza Type A (PCR) Positive A Influenza Type B (PCR) Negative RSV (PCR) Negative Last Vital Signs Temp 38.2 C H 12/20/24 10:34 Pulse 119 H 12/20/24 07:57 Resp 20 12/20/24 10:31 BP 144/74 H 12/20/24 07:30 Pulse Ox 91 L 12/20/24 10:48 Time Spent Time spent with Patient: 55-74 minutes Time was spent: preparing to see the patient(eg.review tests), obtaining and/or reviewing separately otained hiistory, ordering medications,tests, procedures, referring, communicating with other health career resource specialist, indepentently interpreting results, counseling the patient and care coordination
--- NOTE | 2024-12-20 14:18 | W.PC.ACHO ---
Registration Status: Primary Language: Preferred Language: ED Information & Data Chief Complaint SOB 12/20/24 07:22 Triage Note Pt arrives via EMS d/t 12/20/24 07:08 worsening SOB; pt was seen last night here in the ED. Pt given 125 mg of Solu- Medrol by EMS + 1 DuoNeb. Pt also c/o a persistent DAVIES. Medical / Surgical History (Last Reviewed 12/20/24 @ 13:24 by Feroz Moser) Acute internal derangement of right knee Pes anserine bursitis MCL sprain of right knee Palpitation Chest pain Osteoarthritis of right hip De Quervain's disease (tenosynovitis) Right wrist pain Masses of both breasts Vaginitis Chronic pharyngitis (03/07/15) Chronic tonsillitis (03/07/15) Joint pain Lymphadenopathy Premature beats Shoulder pain Cervical pain (neck) Therapeutic procedure Premature beats Lymphadenopathy Shoulder pain Joint pain Smoker Chronic pharyngitis Nephrolithiasis (10/10/16) Low back pain (06/14/14) Disorder of parathyroid gland DUB (dysfunctional uterine bleeding) (11/01/15) Chronic tonsillitis (03/07/15) Annual physical exam (10/21/17) Abnormal cervical Papanicolaou smear Left ureteral stone (Last Reviewed 12/20/24 @ 13:24 by Feroz Moser) History of total right hip replacement (05/22/22) History of bilateral ligation of fallopian tubes History of section History of parathyroidectomy Status post appendectomy History of bilateral tubal ligation H/O parathyroidectomy H/O section S/P appendectomy Ligation of fallopian tube Tonsillectomy SHOCKWAVE THERAPY (04/10/12) section Parathyroidectomy Cystoscopy Appendectomy Most Recent Vital Signs Temperature 38.2 C H 12/20/24 10:34 Temperature Source Oral 12/20/24 07:22 Pulse 111 H 12/20/24 13:50 Pulse 111 H 12/20/24 13:50 Respiratory Rate 25 H 12/20/24 13:50 Respiratory Effort Short of Breath 12/20/24 10:31 Respiratory Depth Deep 12/20/24 10:31 Respiratory Pattern Normal 12/20/24 10:31 Blood Pressure 122/55 L 12/20/24 09:31 Blood Pressure Mean 74 12/20/24 09:31 Blood Pressure Position Sitting 12/20/24 07:22 Pulse Oximetry 94 12/20/24 13:50 Respiratory End-tidal CO2 33 12/20/24 09:31 Oxygen Delivery Method Nasal Cannula 12/20/24 10:48 Oxygen Flow Rate 3 12/20/24 10:48 Pain Level 6 12/20/24 07:22 Comment Pt c/o a DAVIES 12/20/24 07:22 Allergies sulfamethoxazole Allergy (Intermediate, Verified 12/20/24 07:10) SKIN RASH, ? airway swelling trimethoprim Allergy (Intermediate, Verified 12/20/24 07:10) SKIN RASH doxycycline Adverse Reaction (Intermediate, Verified 12/20/24 07:10) Itching metformin Adverse Reaction (Intermediate, Verified 12/20/24 07:10) Diarrhea Precautions Isolation Droplet precaution 12/20/24 07:22 Active Medications Generic Name Dose Route Start Last Admin Trade Name Freq PRN Reason Stop Dose Admin Levalbuterol HCl 10 mg/ Sodium 0 mg 12/20/24 07:45 12/20/24 07:57 Chloride UPD 10 mg DIRECTED TIFFANIE Administration IV IV Catheter Type [Left Saline Lock Antecubital] IV Catheter Gauge [Left 18 Antecubital] Diet Orders Category Date Time Status Diabetes Consistent CHO [DIET] Nutrition 12/20/24 Dinner Active Diagnostics 12/20/24 12/20/24 12/20/24 Range/Units 08:21 08:19 07:06 WBC 9.50 (4.4-10.8) 10^3/uL RBC 4.55 (3.93-5.22) 10^6/uL Hgb 13.4 (11.2-15.7) g/dL Hct 41.4 (36.0-46.0) % MCV 91 (80-95) fL MCH 29.5 (27.0-33.0) pg MCHC 32.4 (32.0-36.0) % RDW 13.5 (11.7-14.6) % Plt Count 239 (130-400) 10^3/uL MPV 9.1 (8.0-11.0) fL Immature Gran % 0.6 % Neutrophils % 83.3 % Lymphocytes % 7.5 % Monocytes % 6.4 % Eosinophils % 1.6 % Basophils % 0.6 % Nucleated RBC % 0.0 (0.0-0.3) % Absolute Neutrophils 7.91 H (1.2-6.7) 10^3/uL Absolute Lymphocytes 0.71 L (1.2-3.4) 10^3/uL Absolute Monocytes 0.61 (0.1-0.8) 10^3/uL Absolute Eosinophils 0.15 (0.0-0.7) 10^3/uL Absolute Basophils 0.06 (0.0-0.2) 10^3/uL D-Dimer Pending VBG pH 7.39 (7.31-7.41) VBG pCO2 46 (41-51) mmHg VBG pO2 32 mmHg VBG HCO3 28 (23-28) mmol/L VBG Total CO2 25 (24-29) mmol/L VBG O2 Saturation 62 % VBG Base Excess 3 (-2-3) mmol/L Sodium 138 (136-145) mmol/L Potassium 3.9 (3.5-5.1) mmol/L Chloride 102 (98-107) mmol/L Carbon Dioxide 29.4 (21.0-32.0) mmol/L Anion Gap 6.6 (3-11) mmol/L BUN 7 (7-18) mg/dL Creatinine 1.0 (0.55-1.02) mg/dL Est GFR (CKD-EPI 2020) 65.71 (mL/min/1.73m2) Glucose 204 H (74-106) mg/dL Calcium 8.8 (8.5-10.1) mg/dL Magnesium 2.0 (1.8-2.4) mg/dL Total Bilirubin 0.51 (0.2-1.0) mg/dL AST 33 (15-37) U/L ALT 45 (14-59) U/L Alkaline Phosphatase 84 (46-116) U/L Troponin I 4 5 (<or=51) ng/L NT-Pro-B Natriuret Pep 205 (<300) pg/mL Total Protein 6.9 (6.4-8.2) g/dL Albumin 3.7 (3.4-5.0) g/dL [id number] Pending COVID-19 Source Nasopharynx SARS-CoV-2 (PCR) Negative (Negative) Influenza Type A (PCR) Positive A (Negative) Influenza Type B (PCR) Negative (Negative) RSV (PCR) Negative (Negative) Intake and Output - 24 Hour Total 01/26/25 06:50 thru 12/20/24 14:07 Intake Total 1010 Output Total 900 Balance 110 Weight 90.718 kg Intake: IV 1010 Output: Urine 900 Falls Risk Assessment History of Falls No History 12/20/24 07:23 Contributing Factors Unstable 12/20/24 07:23 Ambulatory Aids Independent 12/20/24 07:23 Tubes/Lines With any additional score 12/20/24 07:23 Gait Evaluation No gait disturbance 12/20/24 07:23 Cognition No cognitive impairment 12/20/24 07:23 Fall Total Score 23 12/20/24 07:23 Level of Risk Standard/Low Risk 12/20/24 07:23 Problems (Last Reviewed 12/20/24 @ 13:24 by Feroz Moser) DVT prophylaxis (Acute) Acute hypoxemic respiratory failure (Acute) Influenza A (Acute) Diabetes mellitus (Chronic 03/24/13) Depressive disorder (Chronic) Notes 12/20/24 10:49 Nursing Notes by Yumi Jain Nursing Note: Initialized on 12/20/24 10:49 - END OF NOTE v v v v v v v v v Sending and/or Receiving Nurses: Please use comment section below to note any information pertinent to the patient hand-off not included above. Information / Comments: Report received from: Called ED at 14:16 and got report from Yumi PEPE
[2024-12-20 14:39] LABS: D-Dimer 594 ng/mlFEU (<500)
[2024-12-20] MEDS: methylPREDNISolone SUCC 125 MG VIAL IVP (16:26)
[2024-12-20] MEDS: Normal Saline Flush 10 ML SYR IVP ×2 (16:27→21:02)
[2024-12-20] MEDS: Diclofenac 1% Gel 100 GM TUBE TP (16:27)
[2024-12-20] MEDS: Enoxaparin 40 MG/0.4 ML SYR SC (16:27)
[2024-12-20] MEDS: Cyclobenzaprine 10 MG TAB PO (16:37)
[2024-12-20] MEDS: Acetaminophen 325 MG TAB PO (16:37)
[2024-12-20] MEDS: Benzonatate 100 MG CAP PO (16:42)
[2024-12-20] MEDS: Insulin Aspart 300 UNITS/3 ML PEN SC (17:12)
[2024-12-20] MEDS: Atorvastatin 20 MG TAB PO (21:00)
[2024-12-20] MEDS: Insulin Glargine 300 UNITS/3 ML PEN 18 UNITS SC (21:01)
[2024-12-20] MEDS: clonazePAM 0.5 MG TAB PO (21:01)
[2024-12-20] MEDS: Valproic Acid 250 MG CAP PO (21:28)
[2024-12-21] VITALS (21 sets, daily range): BP systolic 118–138; BP diastolic 66–82; PULSE 85–104; RESP 2–28; TEMP 36.6–37.6; O2SAT 2–99
[2024-12-21] MEDS: Albuterol/Ipratropium 3 ML UPD VIAL UPD ×6 (02:40→21:15)
[2024-12-21] MEDS: FLUoxetine 20 MG CAP PO (08:55)
[2024-12-21] MEDS: Oseltamivir 75 MG CAP PO ×2 (08:55→20:16)
[2024-12-21] MEDS: Lisinopril 20 MG TAB PO (08:55)
[2024-12-21] MEDS: predniSONE 20 MG TAB 40 MG PO (08:55)
[2024-12-21] MEDS: clonazePAM 0.5 MG TAB PO ×2 (08:55→20:16)
[2024-12-21] MEDS: Diclofenac 1% Gel 100 GM TUBE TP ×3 (08:56→17:29)
[2024-12-21] MEDS: Normal Saline Flush 10 ML SYR IVP ×2 (08:56→20:17)
[2024-12-21] MEDS: Benzonatate 100 MG CAP PO ×3 (09:08→20:23)
[2024-12-21] MEDS: Lidocaine 5% Patch 1 PATCH TP (09:08)
[2024-12-21] MEDS: Acetaminophen 325 MG TAB PO (09:08)
[2024-12-21] MEDS: Cyclobenzaprine 10 MG TAB PO ×2 (09:08→20:24)
[2024-12-21] MEDS: Valproic Acid 250 MG CAP PO ×2 (10:50→20:15)
[2024-12-21] MEDS: Insulin Aspart 300 UNITS/3 ML PEN SC ×2 (12:59→17:29)
--- NOTE | 2024-12-21 14:05 | INITIAL_ITS ---
Date of service: 12/21/24 Time of Service: 14:05 Care Management Initial Assmt Initial Assessment Reason for Hospitalization: Hypoxia, Influenza, PNA Functional Status/Living Situation Patient Presentation: Juani was sitting up in bed visiting with her mother when CM met with her; she was pleasant and engaged well in conversation. She stated that she still feels terrible, but that she was weaned down to room air, which is an improvement. She reported that she is missing her dogs at home, and is looking forward to returning home. Per report, she is not yet medically cleared. CM will continue to follow. 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 ([employer] only) Care Team Visit Care Team Role Provider Type Keisha Magaña MD, [place] Primary Care Provider , [facility] Jarred Sol MD Emergency Provider [facility] [employer] [facility] [employer] STAFF PHYSICIAN Feroz Moser Admit Provider [facility] [facility] STAFF PHYSICIAN Attending Provider Discharge Potential Discharge Needs: PCP F/U Appt Anticipated Barriers to Discharge: None Identified Patient/Family Education Needs: Review discharge instructions, discuss Ask Me Three Transportation: Private vehicle Plan: Anticipate Juani will return home once medically cleared. She will transport home via private vehicle by family. She will follow up with her PCP and discharge plan of care. CM will continue to follow. Social Determinants of Health Screening Social Determinants of Health last assessed: 12/21/24 Will the Patient Participate in the Screening?: Yes Do you worry about having a steady place to live?: yes What is your living situation today?: I have housing today, but am worried about losing it (no housing issues noted; CM will assess further) Problems where you live: no known problems In the past 12 months, have you had to go without electric, gas, oil or water in your home?: no Have you or anyone in your house had to go without enough food to eat?: no Has lack of transportation kept you from medical appointments or from doing things needed for daily living?: no Has anyone in your life made you feel unsafe or unsupported?: no How hard is it for you to pay for the very basics like food, housing, medical care, and heating? Would you say it is:: Not hard at all Do you want help finding or keeping work or a job?: I do not need or want help If for any reason you need help with day-to-day activities such as bathing, preparing meals, shopping, managing finances, etc., do you get the help you need?: I don?t need any help How often do you feel lonely or isolated from those around you?: Never Do you speak a language other than Namibian at home?: No Does the patient want assistance with any of the above?: No Health Related Social Needs Health related social needs: housing instability, housed, with risk of homelessness (Z59.811) PFSH All Active Problems (Updated 12/20/24 @ 13:36 by Feroz Moser) DVT prophylaxis (Acute) Acute hypoxemic respiratory failure (Acute) Influenza A (Acute) Viral respiratory illness (Acute) Neuropathy (Acute) Immunization due (Acute) Insomnia (Acute) Cough (Acute) Low back pain (Acute) Osteoarthritis of right knee (Acute) Smoker (Acute) BMI 37.0-37.9, adult (Acute) Migraine (Chronic) Diabetes mellitus (Chronic 03/24/13) Depressive disorder (Chronic) Choroidal degeneration (Chronic) OS [place] CAPILLARY CHOROIDAL NEOVASCULAR MEMBRANE ADHD (attention deficit hyperactivity disorder) (Chronic 09/02/17) Anxiety (Chronic) Medical History Acute internal derangement of right knee Pes anserine bursitis MCL sprain of right knee Palpitation Chest pain Osteoarthritis of right hip De Quervain's disease (tenosynovitis) Right wrist pain Masses of both breasts Vaginitis Chronic pharyngitis (03/07/15) Chronic tonsillitis (03/07/15) Joint pain Lymphadenopathy Premature beats Shoulder pain Cervical pain (neck) Therapeutic procedure shockwave therapy; left extracorporeal shockwave therapy Dr. Santiago Premature beats premature beats PVC's Lymphadenopathy right lymph node> left Shoulder pain Joint pain ribs Smoker Chronic pharyngitis 03/07/15 Nephrolithiasis (10/10/16) ACUTE WITH PYELONEPHRITIS; DR. ALICEA Low back pain (06/14/14) Disorder of parathyroid gland S/P removal DUB (dysfunctional uterine bleeding) (11/01/15) fibroids on US Chronic tonsillitis (03/07/15) Annual physical exam (10/21/17) Abnormal cervical Papanicolaou smear CRYO Left ureteral stone Surgical History History of total right hip replacement (05/22/22) History of bilateral ligation of fallopian tubes History of section History of parathyroidectomy Status post appendectomy History of bilateral tubal ligation H/O parathyroidectomy H/O section S/P appendectomy Ligation of fallopian tube Tonsillectomy 04/11/15 SHOCKWAVE THERAPY (04/10/12) LEFT EXTRACORPOREAL SHOCK WAVE THERAPY (DR. SANTIAGO) section Parathyroidectomy Cystoscopy 10/08/16 DR. GIL; LEFT URETERAL STONE EXTRACTION Appendectomy Family History Mother Essential hypertension Depression Father , age 64 Diabetes Essential hypertension Hyperlipidemia Alcohol abuse Brother No problems noted. Maternal Grandfather Heart disease Lung cancer Paternal Grandfather Prostate cancer Maternal Grandmother Diabetes Essential hypertension Bladder cancer Paternal Grandmother Essential hypertension FAMILY HISTORY Abdominal aortic aneurysm RUPTURED Son Depression Son No problems noted. Daughter Depression Social History Smoking/Tobacco Use Status: Former Tobacco Use tobacco type: cigarettes Quit Date: 11/25/09 Tobacco: How many years used: 25 Second Hand Exposure: Yes Smoking risk assessment performed?: Yes Alcohol Intake: former Drug use: Never Substance use type: does not use Caregiver/Support person: No Household members: significant other Housing: house Communication Needs: None Do you need help understanding health information?: Never current occupation: RN Pets and animals: Yes Pets and animals: cat(s) and dog(s) Sexually active: Yes Do you think of yourself as: straight/heterosexual Current gender identity: female What is your relationship status?: living with partner How often do you talk on the phone with friends or family?: never How often do you get together with friends or relatives?: decline to answer How often do you attend methodist or judaism services?: decline to answer Do you belong to any clubs or organized social groups?: no Panel score (0-1 are the most socially isolated patients): 1 What type of physical activity do you participate in: none Frequency: does not exercise Hannah/Latter Day: Latter Day Special hannah needs: No Seatbelt use: always Helmet use: Yes Helmet use: always Drive intox or ride w/intox petroleum transport driver: No Do you feel safe at home: Yes Do you feel safe in your relationship?: Yes Would you like helpful sources: No
--- NOTE | 2024-12-21 15:54 | PGE_ITS ---
Date of Service Date of service: 12/21/24 Time of Service: 15:54 Assessment and Plan Assessment and plan (1) Acute hypoxemic respiratory failure: Status: Acute Assessment and plan: Triggered by influenza A as below. She does not have a formal COPD diagnosis though as noted this diagnosis has been on her record. She has a long smoking history and 1st degree relative with [id number]. Given this history and repsonse to bronchodilators I will treat with steroids. Plan PFTs when back at baseline. No CO2 retention on VBGs EKG/troponins and BNaP do not suggest heart disease. d-dimer reassuring yesterday, but with worse hypoxia and tachycardia today will repeat, CTA if positive. 12/21/24 Pt on day two of tamiflu/prednisone/40 daily (2) Influenza A: Status: Acute Assessment and plan: started on olsetamivir. Even though has had 4+ days of symptoms, was flu negative yesterday and newly positive. She may benefit from this. (3) Diabetes mellitus: Status: Chronic Assessment and plan: A1c has been well controlled as outpatient. Holding glipizide and covering with conservative glargine and moderate sliding scale. She should not still be on sitagliptin as she is on tirzepatide, holding this as well. (4) Depressive disorder: Status: Chronic Assessment and plan: Stable on treatment for anxiety, depression, ADHD. Continue outpatient medications (5) DVT prophylaxis: Status: Acute Assessment and plan: LMWH Subjective Subjective Interval history since last seen: Pt seen and examined this am. Plan of care discussed with pt as well as bedside nurse during MDR. Pt still with myalgia/sob/weakness Exam Narrative Exam Narrative: GEN: Alert and oriented x 4, pleasant and cooperative, gives linear history. No acute distress at rest. HEENT: Head atraumatic. Conjunctiva clear, no icterus. PEERL, EOMI. no rhinorrhea. MMM, OP benign. Neck is supple with no masses or lymphadenopathy, trachea midline LUNGS: Diffusely deminished with slight expiratory wheeze, no rales. Mild increase in effort, on room air CV: tachycardic but regular with no murmurs, gallops, or rubs. ABD: active bowel sounds, soft, nontender and nondistended. No masses. EXT: no cyanosis, clubbing, or edema MSK: No joint redness or swelling NEURO: CN 2-12 grossly intact. Normal movement of 4 extremities. Normal speech and coordination. No tremor SKIN: No rashes or open wounds. PSYCH: normal mood and affect Objective Last Vital Signs Temp 37.0 C 12/21/24 15:10 Pulse 101 H 12/21/24 15:10 Resp 16 12/21/24 15:10 BP 118/68 12/21/24 15:10 Pulse Ox 91 L 12/21/24 15:10 Time Spent with Patient Time Spent with Patient: 35-49 minutes Time was spent: preparing to see the patient(eg.review tests), obtaining and/or reviewing separately otained hiistory, ordering medications,tests, procedures, referring, communicating with other health in home caregiver, indepentently interpreting results, counseling the patient and care coordination
[2024-12-21] MEDS: Enoxaparin 40 MG/0.4 ML SYR SC (17:30)
[2024-12-21] MEDS: Insulin Glargine 300 UNITS/3 ML PEN 18 UNITS SC (20:16)
[2024-12-21] MEDS: Atorvastatin 20 MG TAB PO (20:16)
[2024-12-22] VITALS (16 sets, daily range): BP systolic 113–140; BP diastolic 74–84; PULSE 71–95; RESP 5–20; TEMP 36.6–37.6; O2SAT 90–99
[2024-12-22] MEDS: Albuterol/Ipratropium 3 ML UPD VIAL UPD ×5 (03:58→21:27)
[2024-12-22 06:39] LABS: Abs Immature Grans 0.05 10^3/uL (0.0-0.06); Absolute Basophil Count 0.01 10^3/uL (0.0-0.2); Absolute Lymphocyte Count 2.08 10^3/uL (1.2-3.4); Absolute Monocyte Count 0.69 10^3/uL (0.1-0.8); Absolute Neutrophil Count 10.92 10^3/uL (1.2-6.7); Basophils % 0.1 %; HCT 36.4 % (36.0-46.0); HGB 11.9 g/dL (11.2-15.7); Immature Grans % 0.4 %; Lymphocytes % 15.1 %; MCH 29.6 pg (27.0-33.0); MCHC 32.7 % (32.0-36.0); MCV 91 fL (80-95); MPV 9.3 fL (8.0-11.0); Neutrophils % 79.4 %; Platelet Count 240 10^3/uL (130-400); RBC 4.02 10^6/uL (3.93-5.22); RDW 13.7 % (11.7-14.6); RDW-SD 45.7 fL; WBC 13.75 10^3/uL (4.4-10.8)
[2024-12-22 06:58] LABS: ALT 62 U/L (14-59); AST 41 U/L (15-37); Albumin 3.1 g/dL (3.4-5.0); Alkaline Phosphatase 67 U/L (46-116); BUN 15 mg/dL (7-18); Bilirubin, Total 0.29 mg/dL (0.2-1.0); CREATININE 0.9 mg/dL (0.55-1.02); Calcium 8.6 mg/dL (8.5-10.1); Chloride 104 mmol/L (98-107); Estimated GFR 74.57 (mL/min/1.73m2); Glucose 194 mg/dL (74-106); Potassium 3.6 mmol/L (3.5-5.1); Sodium 141 mmol/L (136-145); Total Protein 6.2 g/dL (6.4-8.2)
[2024-12-22 08:44] LABS: Vitamin B12 492 pg/mL (193-986)
[2024-12-22] MEDS: Insulin Aspart 300 UNITS/3 ML PEN SC ×3 (08:49→17:10)
[2024-12-22] MEDS: Normal Saline Flush 10 ML SYR IVP ×3 (08:50→21:04)
[2024-12-22] MEDS: FLUoxetine 20 MG CAP PO (08:51)
[2024-12-22] MEDS: Lisinopril 20 MG TAB PO (08:51)
[2024-12-22] MEDS: predniSONE 20 MG TAB 40 MG PO (08:51)
[2024-12-22] MEDS: Valproic Acid 250 MG CAP PO ×2 (08:51→21:03)
[2024-12-22] MEDS: clonazePAM 0.5 MG TAB PO ×2 (08:52→21:03)
[2024-12-22] MEDS: Oseltamivir 75 MG CAP PO ×2 (08:53→21:03)
[2024-12-22] MEDS: Benzonatate 100 MG CAP PO ×2 (08:54→16:04)
[2024-12-22 11:34] LABS: Alpha 1 Antitrypsin,Serum 162 mg/dL (90-200)
--- NOTE | 2024-12-22 13:42 | W.PM.PROGNOT ---
Date of Service Date of service: 12/22/24 Time of Service: 13:42 Assessment and Plan Assessment and plan (1) Acute hypoxemic respiratory failure: Status: Acute Assessment and plan: Triggered by influenza A as below. She does not have a formal COPD diagnosis though as noted this diagnosis has been on her record. She has a long smoking history and 1st degree relative with [id number]. Given this history and repsonse to bronchodilators I will treat with steroids. Plan PFTs when back at baseline. No CO2 retention on VBGs EKG/troponins and BNaP do not suggest heart disease. d-dimer reassuring yesterday, but with worse hypoxia and tachycardia today will repeat, CTA if positive. 12/21/24 Pt on day two of tamiflu/prednisone/40 daily 12/22/24 Continue with current treatment (2) Influenza A: Status: Acute Assessment and plan: started on olsetamivir. Even though has had 4+ days of symptoms, was flu negative yesterday and newly positive. She may benefit from this. (3) Diabetes mellitus: Status: Chronic Assessment and plan: A1c has been well controlled as outpatient. Holding glipizide and covering with conservative glargine and moderate sliding scale. She should not still be on sitagliptin as she is on tirzepatide, holding this as well. (4) Depressive disorder: Status: Chronic Assessment and plan: Stable on treatment for anxiety, depression, ADHD. Continue outpatient medications (5) DVT prophylaxis: Status: Acute Assessment and plan: LMWH Subjective Subjective Interval history since last seen: Pt seen and examined in her room this am. Still feeling weak and with myalgia. Will keep for another day Exam Narrative Exam Narrative: GEN: Alert and oriented x 4, pleasant and cooperative, gives linear history. No acute distress at rest. HEENT: Head atraumatic. Conjunctiva clear, no icterus. PEERL, EOMI. no rhinorrhea. MMM, OP benign. Neck is supple with no masses or lymphadenopathy, trachea midline LUNGS: Diffusely deminished with slight expiratory wheeze, no rales. Mild increase in effort, on room air CV: tachycardic but regular with no murmurs, gallops, or rubs. ABD: active bowel sounds, soft, nontender and nondistended. No masses. EXT: no cyanosis, clubbing, or edema MSK: No joint redness or swelling NEURO: CN 2-12 grossly intact. Normal movement of 4 extremities. Normal speech and coordination. No tremor SKIN: No rashes or open wounds. PSYCH: normal mood and affect Objective Last Vital Signs Temp 37.2 C 12/22/24 12:16 Pulse 85 12/22/24 12:16 Resp 18 12/22/24 12:16 BP 113/76 12/22/24 12:16 Pulse Ox 92 12/22/24 12:16 Laboratory Results - last 24 hr 12/20/24 12/22/24 07:06 06:13 WBC 13.75 H RBC 4.02 Hgb 11.9 Hct 36.4 MCV 91 MCH 29.6 MCHC 32.7 RDW 13.7 Plt Count 240 MPV 9.3 Immature Gran % 0.4 Neutrophils % 79.4 Lymphocytes % 15.1 Monocytes % 5.0 Eosinophils % 0.0 Basophils % 0.1 Nucleated RBC % 0.0 Absolute Neutrophils 10.92 H Absolute Lymphocytes 2.08 Absolute Monocytes 0.69 Absolute Eosinophils 0.00 Absolute Basophils 0.01 Sodium 141 Potassium 3.6 Chloride 104 Carbon Dioxide 30.0 Anion Gap 7.0 BUN 15 Creatinine 0.9 Est GFR (CKD-EPI 2020) 74.57 Glucose 194 H Calcium 8.6 Total Bilirubin 0.29 AST 41 H ALT 62 H Alkaline Phosphatase 67 Total Protein 6.2 L Albumin 3.1 L [id number] 162 Vitamin B12 492 TSH 1.40 Time Spent with Patient Time Spent with Patient: 35-49 minutes Time was spent: preparing to see the patient(eg.review tests), obtaining and/or reviewing separately otained hiistory, ordering medications,tests, procedures, referring, communicating with other health family member caretaker, indepentently interpreting results, counseling the patient and care coordination
--- NOTE | 2024-12-22 14:44 | PDOC.CMPRO ---
Date of service: 12/22/24 Time of Service: 14:44 Care Management Progress Note Progress Note Text Progress Note Text: Juani was walking back to her bed from the bathroom when CM visited with her. She stated that she is still not feeling well, but has improved a little since this morning. She reported that per MD, she will remain overnight for continued observation, and will likely be ready for discharge tomorrow. CM will continue to follow. Discharge Potential Discharge Needs: PCP F/U Appt Anticipated Barriers to Discharge: None Identified Patient/Family Education Needs: Review discharge instructions, discuss Ask Me Three Transportation: Private vehicle Plan: Anticipate Juani will return home once medically cleared. She will transport home via private vehicle by family. She will follow up with her PCP and discharge plan of care. CM will continue to follow. Social Determinants of Health Screening Social Determinants of Health last assessed: 12/22/24 Will the Patient Participate in the Screening?: Yes Do you worry about having a steady place to live?: yes What is your living situation today?: I have housing today, but am worried about losing it (no housing issues noted; CM will assess further) Problems where you live: no known problems In the past 12 months, have you had to go without electric, gas, oil or water in your home?: no Have you or anyone in your house had to go without enough food to eat?: no Has lack of transportation kept you from medical appointments or from doing things needed for daily living?: no Has anyone in your life made you feel unsafe or unsupported?: no How hard is it for you to pay for the very basics like food, housing, medical care, and heating? Would you say it is:: Not hard at all Do you want help finding or keeping work or a job?: I do not need or want help If for any reason you need help with day-to-day activities such as bathing, preparing meals, shopping, managing finances, etc., do you get the help you need?: I don?t need any help How often do you feel lonely or isolated from those around you?: Never Do you speak a language other than Vietnamese at home?: No Does the patient want assistance with any of the above?: No Health Related Social Needs Health related social needs: housing instability, housed, with risk of homelessness (Z59.811)
--- NOTE | 2024-12-22 15:45 | CHAPLAIN ---
Juani is here with the flu. She is off oxygen now. Her mom and her brother were with her when I visited. 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 Her stepfather was a patient here on comfort measures and here last week. Ammy was a strong support for her mom during that time. She said she is missing her dogs and cat.
[2024-12-22] MEDS: Enoxaparin 40 MG/0.4 ML SYR SC (16:04)
[2024-12-22] MEDS: Atorvastatin 20 MG TAB PO (21:18)
[2024-12-22] MEDS: Insulin Glargine 300 UNITS/3 ML PEN 18 UNITS SC (21:25)
[2024-12-23] VITALS (9 sets, daily range): BP systolic 117–130; BP diastolic 66–91; PULSE 16–89; RESP 9–95; TEMP 36.8–37.1; O2SAT 92–99
[2024-12-23] MEDS: Albuterol/Ipratropium 3 ML UPD VIAL UPD ×3 (02:37→09:01)
[2024-12-23] MEDS: Valproic Acid 250 MG CAP PO (08:17)
[2024-12-23] MEDS: predniSONE 20 MG TAB 40 MG PO (08:18)
[2024-12-23] MEDS: clonazePAM 0.5 MG TAB PO (08:18)
[2024-12-23] MEDS: Lisinopril 20 MG TAB PO (08:19)
[2024-12-23] MEDS: Benzonatate 100 MG CAP PO (08:19)
[2024-12-23] MEDS: FLUoxetine 20 MG CAP PO (08:19)
[2024-12-23] MEDS: Insulin Aspart 300 UNITS/3 ML PEN SC ×2 (08:20→12:07)
[2024-12-23] MEDS: Normal Saline Flush 10 ML SYR IVP (08:24)
[2024-12-23] MEDS: Oseltamivir 75 MG CAP PO (08:39)
--- NOTE | 2024-12-23 13:24 | DSE_ITS ---
Date of service: 12/23/24 Time of Service: 13:24 DS: Diagnosis Discharge Diagnosis (1) Acute hypoxemic respiratory failure: Status: Acute (2) Influenza A: Status: Acute (3) Diabetes mellitus: Status: Chronic (4) Depressive disorder: Status: Chronic (5) DVT prophylaxis: Status: Acute Discharge Plan Disposition Patient Disposition: Home Condition: Improving Discharge Details Reason For Visit: Hypoxia,Infuenza Pneumonia Admit Date/Time: 12/20/24 12:29 Admit Provider: Feroz Moser Attending Provider: Feroz Moser Primary Care Provider: Keisha Magaña [facility] Course Hospital Course: This is a 59-year-old female who was admitted to the hospital on 20 December for what look like a COPD exacerbation as well as hypoxia and influenza. The plan on admission was to continue with Tamiflu and monitor her respiratory status. At the time of discharge her respiratory rate was 18 and she was satting 92% on room air. I do have a recommendation of getting a formal pulmonary function test as an outpatient to rule in or rule out COPD. Patient will be discharged in good health Home Meds and New Rx's Prescriptions: New ipratropium-albuterol 0.5 mg-3 mg(2.5 mg base)/3 mL Solution For Nebulization 3 ml UPD Q6H PRN PRNQty: 180 0RF prednisone 20 mg Tablet 40 mg PO DAILY Qty: 14 0RF oseltamivir 75 mg Capsule 75 mg PO BID Qty: 6 0RF Combivent Respimat 20-100 mcg/actuation mist 1 puff inhalation Q6H Qty: 4 0RF Continued tirzepatide 12.5 mg/0.5 mL pen injector 12.5 mg subcut QWEEK Qty: 8 4RF fluoxetine 20 mg capsule 20 mg PO DAILY Qty: 90 11RF valproic acid 250 mg capsule 250 mg PO BID Qty: 60 4RF (DME) FreeStyle Test 1 EACH strip 1 strip Miscellaneous DAILY Rx Instructions: DX:250. (DME) lancets [OneTouch Delica Lancets] 1 EACH misc 1 ea Sub-Q DAILY Rx Instructions: DX:250. diclofenac sodium [Arthritis Pain (diclofenac)] 1 % gel 2 g topical QID Qty: 150 3RF Rx Instructions: apply to wrist penciclovir [Denavir] 1 % cream 1 applic Topical QID PRN (Reason: herpes) Qty: 5 4RF cyclobenzaprine 10 mg tablet 10 mg PO TID PRN (Reason: muscle spasm) Qty: 10 0RF glipizide 10 mg tablet extended release 24hr 10 mg PO DAILY Qty: 90 5RF lisinopril 20 mg tablet 20 mg PO DAILY Qty: 90 5RF prochlorperazine maleate 10 mg tablet 10 mg PO TID PRN (Reason: nausea and vomiting) Qty: 50 0RF lidocaine [Lidoderm] 5 % adhesive patch,medicated 1 patch TP DAILY PRN (Reason: pain) Qty: 30 2RF Rx Instructions: leave on most painful area for up to 12 hrs atorvastatin 20 mg tablet 20 mg PO QPM Qty: 90 5RF clonazepam 0.5 mg tablet 0.5 mg PO BID Qty: 60 5RF methylphenidate HCl 10 mg tablet 10 mg PO BID MDD 3 Qty: 60 0RF acetaminophen 500 mg tablet 500 mg PO Q6H PRN (Reason: pain) Qty: 60 2RF benzonatate 100 mg capsule 100 mg PO TID PRNQty: 10 0RF No Action Januvia 100 mg tablet 100 mg PO DAILY Qty: 90 4RF Discharge Instructions Referrals: Keisha Magaña [place], [place] [Primary Care Provider] - (follow up in 5-7 days Recommend a formal PFT to see if the pt has a diagnosis of copd and to see if she qualifies for a nebulizer) Activity:: Activity as Tolerated Equipment/Supplies:: No Equipment Needed Diet:: As Tolerated Discharge Orders Discharge Orders: Discharge Order (Routine); Ordered 12/23/24 Ordered By: Bryn Trujillo DS: Summary Time Spent with Patient providing and/or coordinating discharge services: Greater than 30 minutes Status at Discharge Functional status at discharge: independent ambulation Overall status at discharge: patient is back to baseline Mental Status: mental status grossly normal Speech and Movement: speech and movement normal Mood: congruent mood Affect: normal affect Quality:SDOH Health Related Social Needs: Health related social needs housing instability, house d, with risk of homelessness (Z59.811) Exam Psych Mental Status: mental status grossly normal Speech and Movement: speech and movement normal Mood: congruent mood Affect: normal affect DS: Data Vitals/I&O Vitals and I&O: Vital Signs Temperature 37.1 C 12/23/24 11:54 Temperature Source Temporal Artery Scan 12/23/24 11:54 Pulse 88 12/23/24 11:54 Pulse Rhythm Regular 12/20/24 14:45 Pulse 111 H 12/20/24 13:50 Respiratory Rate 18 12/23/24 11:54 Respiratory Effort Labored 12/20/24 14:45 Respiratory Depth Shallow 12/20/24 14:45 Respiratory Pattern Normal 12/20/24 14:45 Blood Pressure 117/91 H 12/23/24 11:54 Blood Pressure Mean 74 12/20/24 09:31 Blood Pressure Position Sitting 12/20/24 07:22 Pulse Oximetry 92 12/23/24 11:54 Respiratory End-tidal CO2 33 12/20/24 09:31 Oxygen Delivery Method Room Air 12/23/24 11:54 Oxygen Flow Rate 0 12/23/24 11:54 Pain Level 0 12/23/24 09:17 Comment pT c/o pain on side from coughing. 12/22/24 12:16 Intake & Output 12/22/24 12/23/24 12/23/24 23:59 11:59 23:59 Intake Total 1480 / 2200 920 / 920 Output Total 3700 / 4000 1650 / 1650 Balance -2220 / -1800 -730 / -730 Intake: Oral 1480 / 2200 920 / 920 Output: Urine 3700 / 4000 1650 / 1650 Other: Urine Color Yellow Yellow Urine Appearance Clear Clear Comment per patient per patient Stool Size Moderate Stool Characteristics Soft Formed Data Completed and Pending Labs on day of discharge: Labs from last 24 hours 12/20/24 07:06 [id number] 162 PFSH All Active Problems (Updated 12/20/24 @ 13:36 by Feroz Moser) DVT prophylaxis (Acute) Acute hypoxemic respiratory failure (Acute) Influenza A (Acute) Viral respiratory illness (Acute) Neuropathy (Acute) Immunization due (Acute) Insomnia (Acute) Cough (Acute) Low back pain (Acute) Osteoarthritis of right knee (Acute) Smoker (Acute) BMI 37.0-37.9, adult (Acute) Migraine (Chronic) Diabetes mellitus (Chronic 03/24/13) Depressive disorder (Chronic) Choroidal degeneration (Chronic) OS [place] CAPILLARY CHOROIDAL NEOVASCULAR MEMBRANE ADHD (attention deficit hyperactivity disorder) (Chronic 09/02/17) Anxiety (Chronic) Medical History Acute internal derangement of right knee Pes anserine bursitis MCL sprain of right knee Palpitation Chest pain Osteoarthritis of right hip De Quervain's disease (tenosynovitis) Right wrist pain Masses of both breasts Vaginitis Chronic pharyngitis (03/07/15) Chronic tonsillitis (03/07/15) Joint pain Lymphadenopathy Premature beats Shoulder pain Cervical pain (neck) Therapeutic procedure shockwave therapy; left extracorporeal shockwave therapy Dr. Santiago Premature beats premature beats PVC's Lymphadenopathy right lymph node> left Shoulder pain Joint pain ribs Smoker Chronic pharyngitis 03/07/15 Nephrolithiasis (10/10/16) ACUTE WITH PYELONEPHRITIS; DR. ALICEA Low back pain (06/14/14) Disorder of parathyroid gland S/P removal DUB (dysfunctional uterine bleeding) (11/01/15) fibroids on US Chronic tonsillitis (03/07/15) Annual physical exam (10/21/17) Abnormal cervical Papanicolaou smear CRYO Left ureteral stone Surgical History History of total right hip replacement (05/22/22) History of bilateral ligation of fallopian tubes History of section History of parathyroidectomy Status post appendectomy History of bilateral tubal ligation H/O parathyroidectomy H/O section S/P appendectomy Ligation of fallopian tube Tonsillectomy 04/11/15 SHOCKWAVE THERAPY (04/10/12) LEFT EXTRACORPOREAL SHOCK WAVE THERAPY (DR. SANTIAGO) section Parathyroidectomy Cystoscopy 10/08/16 DR. GIL; LEFT URETERAL STONE EXTRACTION Appendectomy Family History Mother Essential hypertension Depression Father , age 64 Diabetes Essential hypertension Hyperlipidemia Alcohol abuse Brother No problems noted. Maternal Grandfather Heart disease Lung cancer Paternal Grandfather Prostate cancer Maternal Grandmother Diabetes Essential hypertension Bladder cancer Paternal Grandmother Essential hypertension FAMILY HISTORY Abdominal aortic aneurysm RUPTURED Son Depression Son No problems noted. Daughter Depression Social History Smoking/Tobacco Use Status: Former Tobacco Use tobacco type: cigarettes Quit Date: 11/25/09 Tobacco: How many years used: 25 Second Hand Exposure: Yes Smoking risk assessment performed?: Yes Alcohol Intake: former Drug use: Never Substance use type: does not use Caregiver/Support person: No Household members: significant other Housing: house Communication Needs: None Do you need help understanding health information?: Never current occupation: RN Pets and animals: Yes Pets and animals: cat(s) and dog(s) Sexually active: Yes Do you think of yourself as: straight/heterosexual Current gender identity: female What is your relationship status?: living with partner How often do you talk on the phone with friends or family?: never How often do you get together with friends or relatives?: decline to answer How often do you attend islam or muslim services?: decline to answer Do you belong to any clubs or organized social groups?: no Panel score (0-1 are the most socially isolated patients): 1 What type of physical activity do you participate in: none Frequency: does not exercise Hannah/Yazidism: Scientology Special hannah needs: No Seatbelt use: always Helmet use: Yes Helmet use: always Drive intox or ride w/intox semi truck driver: No Do you feel safe at home: Yes Do you feel safe in your relationship?: Yes Would you like helpful sources: No Time Spent with Patient Time Spent with Patient: 45-69 minutes Time was spent: preparing to see the patient(eg.review tests), obtaining and/or reviewing separately otained hiistory, ordering medications,tests, procedures, referring, communicating with other health restorative care technician, indepentently interpreting results, counseling the patient and care coordination
--- NOTE | 2024-12-23 19:25 | CMDISCH_ITS ---
Date of service: 12/23/24 Time of Service: 19:25 LACE Index Scoring Tool Questions: Length of Stay (in days): 3 Was the patient admitted via the E.D.?: Yes Comorbidities: Diabetes w/o Complication E.D. Visits: 1 Answers: Total Score: 8 Risk of Readmission: Low Risk Care Management Discharge Plan Reason for Hospitalization: Hypoxia, Influenza Discharge Plan: Juani returned home today with no new services. She was transported home by family via private vehicle. She will follow up with her PCP and discharge plan of care. Patient/Family Education Needs: Review discharge instructions and limitations, d iscussion of self care needs including ask me three. SDOH Health Related Social Needs: Health related social needs housing instability, house d, with risk of homelessness (Z59.811)
== END 2024-12-23 14:04 | disposition home or self-care (01) | DRG 193 ==
LOC: ER 13:26 → MS 14:32
PROVIDERS: Hospitalist; Admitting Provider Family Medicine; Emergency Provider Emergency Medicine; PCP Family Medicine; Visit Provider Family Medicine
DX: J10.00 Influenza due to other identified influenza virus with unspecified type of pneumonia (principal); J96.01 Acute respiratory failure with hypoxia; J44.1 Chronic obstructive pulmonary disease with (acute) exacerbation; Z59.811 Housing instability, housed, with risk of homelessness; J44.0 Chronic obstructive pulmonary disease with (acute) lower respiratory infection; F32.A Depression, unspecified; Z87.891 Personal history of nicotine dependence; E11.40 Type 2 diabetes mellitus with diabetic neuropathy, unspecified; G47.00 Insomnia, unspecified; M17.11 Unilateral primary osteoarthritis, right knee; R05.1 Acute cough; G43.909 Migraine, unspecified, not intractable, without status migrainosus; F41.9 Anxiety disorder, unspecified; F90.9 Attention-deficit hyperactivity disorder, unspecified type; I49.3 Ventricular premature depolarization; R59.9 Enlarged lymph nodes, unspecified; E89.2 Postprocedural hypoparathyroidism; Z96.641 Presence of right artificial hip joint; R53.1 Weakness
CPT/HCPCS: 00123; 80053; 82805; 87637; 93005; 94640; 96361; 96374; 99285; J1650; 71046; 82103; 82607; 83735; 83880; 84443; 84484; 85025; 85379; 93010; 94668; 94760; 99223; 99233; 99239; J1815; J1885; J2919; J7512; J7614; J7620

== ENCOUNTER 2025-01-08 00:11 | Outpatient (CLI) | payer OTHER, SELFPAY ==
--- NOTE | 2025-01-08 07:30 | DI.US_ITS ---
APPROVED REPORT EXAM: Comprehensive 2D, Doppler, and color-flow Echocardiogram Patient Location: Out-Patient Editorial Writer: Diogo Agee RDCS (AE) Indications: COPD, cough, SOB Other Information Study Quality: Good Conclusion Normal left ventricular wall thickness and chamber size. Ejection fraction is 65 to 70%. Wall motio n is normal Normal right ventricular size and function Both atria are normal in size There is no structural or hemodynamically significant valvular disease Minimally dilated ascending aorta measuring 3.48 cm Wall motion Left Ventricle The left ventricle is normal size. Left ventricular systolic function is normal. The left ventricular ejection fraction is within the normal range. There is normal left ventricular wall thickness. There is normal LV segmental wall motion. The left ventricular diastolic function is normal. There is no v entricular septal defect visualized. LVEF is 65-70%. Right Ventricle The right ventricle is normal size. The right ventricular systolic function is normal. Atria The left atrium size is normal. The right atrium size is normal. Aortic Valve The aortic valve is normal in structure. There is no aortic valvular stenosis. No aortic regurgitatio n is present. Mitral Valve The mitral valve is normal in structure. No evidence of mitral valve stenosis. There is no mitral vandana ve regurgitation noted. Tricuspid Valve The tricuspid valve is normal in structure. There is no tricuspid valve stenosis. There is no tricusp id valve regurgitation noted. Pulmonic Valve The pulmonary valve is normal in structure. There is no pulmonic valvular stenosis. There is no pulmo nacho valvular regurgitation. Great Vessels The aortic root is normal in size. The ascending aorta is mildly dilated. Aortic arch is normal in ca liber. IVC is normal in size and collapses >50% with inspiration. Pericardium There is no pericardial effusion. 2D Dimensions IVSD d PLAX 0.93 cm F: 0.6-1.0 Ao Root d 3.01 cm F: 2.7 - 3.3 LVPW d PLAX 0.92 cm F: 0.6 - 1.0 Ao Asc Diam d 3.48 cm F: 2.3 - 3.1 LVID d PLAX 4.56 cm F: 3.8 - 5.2 LVDs 2.96 cm F: 2.2 - 3.5 LV EF Teichholz 64.6 % FS 35.15 % LV EDV (Teich) 95.2 mL LV ESV (Teich) 33.7 mL Stroke Vol Index (Teich) 31.70 M-Mode TAPSE 3.02 cm (M/F) >1.7 LV Volumes - Method of Disks (Hernandez's) Single Plane 2D LV Volumes Biplane 2D LV Volumes LV EDV A4C 91.7 mL LV EDV BP 80.58 mL F: 46 - 106 LV ESV A4C 26.3 mL LV ESV BP 24.0 mL LVEF(%) A4C 70.3 % LVEF(%) BP 70.18 % F: 54 - 74 LV EDV A2C 64.3 mL LV EDV BP Index 41.32 mL/m2 F: 29 - 61 LV ESV A2C 20.0 mL SV BP LVEF(%) A2C 68.9 % SV Index LA Volume LA Length A4C 3.7 cm LA Length A2C LA Area A4C s 6.62 cm2 LA Area A2C s LA Vol A4C A-L 10.09 mL LA Vol A2C A-L LA Vol Biplane A-L LA Vol A4C MOD 9.3 mL LA Vol A2C MOD LA Vol BP MOD RA Volume RA Area A4C 6.6 cm2 RA ESV A4C (A-L) 9.6mL RA Vol/BSA A4C A-L RA Length A4C 3.8 cm RA ESV A4C (MOD) 9.0mL LV Diastology MV E' medial 0.072 (>0.07 m/s) MV E Vmax 0.56 (0.4-1.3 m/s) MV E/E' MED 7.73 (<14) MV A Vmax 0.85 (0.4-1.3 m/s) MV E' lateral 0.087 (>0.1 m/s) E/A Ratio 0.7 MV E/E' LAT 6.39 (<14) MV E' Average 0.080 m/s MV E/E'(average) 7.00 Aortic Valve AoV Vmax 1.59 m/s LVOT Vmax 1.08 m/s AoV Peak Grad 10.1 mmHg LVOT Peak Grad 4.7 mmHg AoV Area (Vmax) 2.52 cm2 LVOT VTI 0.222 m AoV VTI 0.249 m LVOT Mean Grad 2.5 mmHg AoV Mean Tiago. 1.11 m/s LVOT SV 81.95 mL AoV Mean Grad 5.6 mmHg LVOT Diam s 2.15 cm AoV Area (VTI) 3.30 cm2 AV Regurg Peak Gr. 10.10 mmHg Velocity Ratio 0.68 Pulmonary Valve PV Vmax 1.14 (0.5-1.5 m/s) RVOT Vmax 1.07 m/s PV Peak Grad 5.2 mmHg RVOT Peak Gr. 4.6 mmHg PV Mean Tiago 0.76 m/s RVOT VTI 0.176 m PV Mean Grad 2.7 mmHg RVOT Mean Gr. 2.4 mmHg Tricuspid Valve RA Pressure 3.00 mmHg TR Vmax 1.40 m/s TR Peak Grad 7.8 mmHg RVSP (TR) 10.8 mmHg
== END 2025-01-08 00:31 ==
LOC: DI 00:11
PROVIDERS: PCP Family Medicine; Visit Provider Internal Medicine Cardiovascular Disease
DX: J44.9 Chronic obstructive pulmonary disease, unspecified (principal); R05.9 Cough, unspecified
CPT/HCPCS: 93306

== ENCOUNTER 2025-03-19 10:38 | Outpatient (CLI) | payer OTHER, SELFPAY ==
--- NOTE | 2025-03-19 09:30 | DI.RAD_ITS ---
Exam(s) XR KNEE LT 3V AP,LAT,BRETT EXAM: XR KNEE LT 3V AP,LAT,BRETT CLINICAL HISTORY: l knee pain, SWELLING OF L KNEE,EFFUSION M25.462. TECHNIQUE: 2D digital imaging was performed. COMPARISON: CR,XR XR KNEE RT 3V AP,LAT,BRETT from 12/06/2022 FINDINGS: Four views. No evidence of fracture. There appears to be a small amount of increased joint fluid. There are mil catherine degenerative changes in the medial compartment and mild degenerative changes in the lateral ann-marie rtment. Mild chondrocalcinosis noted in the lateral compartment. Mild degenerative changes in the p atellofemoral compartment. Bone density normal. No osseous lesions. IMPRESSION: Degenerative changes. Small amount of increased joint fluid. DATA REPOSITORY: RADIATION DOSE DELIVERED:
== END 2025-03-19 10:58 ==
LOC: DI 10:39
PROVIDERS: PCP Family Medicine; Visit Provider Family Medicine
DX: M25.462 Effusion, left knee (principal)
CPT/HCPCS: 73562

== ENCOUNTER 2025-06-03 01:09 | Outpatient (CLI) | payer OTHER, SELFPAY ==
--- NOTE | 2025-06-03 06:30 | DI.MRI_ITS ---
Exam(s) MR LOWER JOINT LT WO EXAM: MR LOWER JOINT LT WO CLINICAL HISTORY: PAIN,acute medial meniscus tear lt knee,s83.242a TECHNIQUE: Multiplanar multisequence MRI of the knee was performed. COMPARISON: MR MR LOWER JOINT RT WO from 09/10/2022 CR XR KNEE LT 3V AP,LAT,BRETT from 03/19/2025 FINDINGS: EFFUSION: There is a prominent knee joint effusion. There is a Palmer cyst also noted in the medial popliteal fossa which measures 4 cm length by 1 cm AP x 1 cm wide. There is subcutaneous edema anterior to the patella and patellar ligament. MARROW:No evidence of fracture. Mild subarticular edema noted in the tibial plateau but not in the femoral condyles. There is benign-appearing non expansile bone lesion in the lateral aspect of the upper lateral femoral condyle which measures approximately 7 x 6 mm. There is no surrounding marrow edema. Suspect that this is a benign enchondroma or possible small bone cyst. PATELLOFEMORAL COMPARTMENT: The quadriceps tendon is intact. The patellar ligament is intact. There is thinning of the retropatellar cartilage over both facets inferiorly. There are no osteochondral defects. Retropatellar cartilage thickness is preserved above the equator.There is no intraosseous signal to suggest recent patellar dislocation. There is fluid interposed between the leaves of the lateral patellar retinaculum CRUCIATE LIGAMENTS: The anterior cruciate ligament is intact.The posterior cruciate ligament is intact. MEDIAL COMPARTMENT/MEDIAL MENISCUS: There are no obvious tears of the medial meniscus.The meniscal root is intact. There is a slight surface irregularity on the superior aspect of the posterior horn of the medial meniscus. There is full-thickness articular cartilage loss over the main weight-bearing surface of the medial femoral condyle small focus of some irregular signal abnormality is noted. There is no distinct osteochondral defect. There are marginal osteophytes seen on both the inner and outer aspects of the medial femoral condyle and outer aspect of the medial tibial plateau. There is mild subarticular bone edema in the anterior aspect of the medial tibial plateau. There are no degenerative subarticular cysts. MEDIAL COLLATERAL LIGAMENT: No significant high-grade tear. LATERAL COMPARTMENT/LATERAL MENISCUS: There is no evidence of obvious lateral meniscal tear.There is also degenerative change in the lateral compartment. There is mild cartilage thinning over the main weight-bearing surface of the lateral femoral condyle but less than is evident on the medial condyle. There is very mild focal subarticular bone edema in the lateral condyle over the anterior horn of the lateral meniscus and there is also some edema in the tibial plateau subjacent to the anterior horn of the lateral meniscus. There are marginal osteophytes off the outer aspect of the lateral femoral condyle and lateral tibial plateau. ILIOTIBIAL BAND: Intact LATERAL COLLATERAL LIGAMENT COMPLEX: The fibular collateral ligament is intact. The biceps femoris tendon is intact.Popliteus muscle and tendon are intact. IMPRESSION: 1. There is a moderate-large side knee joint effusion. Mild synovial thickening but no obvious loose intra-articular bodies in the joint effusions seen nor within the Palmer cyst in the medial popliteal fossa. 2. There are no obvious meniscal tears. Tiny defect in the superior aspect of the posterior horn of the medial meniscus is noted on the coronal images. 3. There is advanced degenerative change in the medial compartment full- thickness cartilage loss over the main weight-bearing surface of the medial femoral condyle and marginal osteophytes off the inner and outer aspects of the medial condyle. There are moderate degenerative changes in the lateral com partment and patellofemoral compartment. 4. There are no cruciate nor collateral ligament tears. Other findings as above. DATA REPOSITORY:
== END 2025-06-03 01:29 ==
LOC: DI 01:09
PROVIDERS: PCP Family Medicine; Visit Provider Student in an Organized Health Care Education/Training Program
DX: S83.242A Other tear of medial meniscus, current injury, left knee, initial encounter (principal); X58.XXXA Exposure to other specified factors, initial encounter
CPT/HCPCS: 73721